=== PATIENT | male | born 1935 | race Caucasian/White ===

== ENCOUNTER 2022-09-22 19:18 | Inpatient (IN) ==
[2022-09-22] MEDS ORDERED: 0.9 % SODIUM CHLORIDE 1,000 ML IV ONE ×3 (19:24→22:12)
[2022-09-22] MEDS ORDERED: ONDANSETRON 4 MG/2 ML VIAL IV ONE (19:24)
[2022-09-22 19:34] LABS: POC Calcium, Ionized 1.11 (1.16-1.32); POC Creatinine 2.2 (0.6-1.2); POC Potassium 4.1 (3.3-5.1)
--- NOTE | 2022-09-22 19:52 | Emergency Department Note ---
Nausea/Vomiting/Diarrhea HPI General Chief complaint: Nausea/Vomiting/Diarrhea Stated complaint: nausea vomiting Time Seen by Provider: 09/22/22 19:24 Source: family Mode of arrival: wheelchair Limitations: no limitations and altered mental status History of Present Illness HPI Narrative: Narrative: Patient presents to the ED escorted by his and daughter with complaints of confusion. They state that last night when he went to bed patient was completely normal. Throughout the day today patient has been confused and stumbling over his words. They state that he has been very weak. They state he then started vomiting. He said he started having blood in his suprapubic cath. He is followed by Dr. Obregon from urology with his last visit being about 3 weeks ago. At that visit he did not have any blood coming out of his catheter. Patient does not know why he is here. Family denies fever, chills, abdominal pain, diarrhea, constipation, difficulty breathing, cardiac chest pain, heart palpitations, hematemesis, melena, hematochezia. They deny any other alleviating or aggravating factors. Related Data Home Medications Medication Instructions Recorded Confirmed aspirin 81 mg tablet,delayed 81 mg PO QDAY 01/26/15 09/14/22 release calcium carbonate-vitamin D3 600 1 tab PO BID 03/27/16 09/14/22 mg-125 unit tablet bicalutamide 50 mg tablet (Casodex) 50 mg PO QDAY 10/06/16 09/14/22 diphenhydramine HCl 25 mg capsule 25 mg PO BID PRN 08/05/18 09/14/22 polyethylene glycol 3350 17 17 g PO QDAY 10/09/19 09/14/22 gram/dose oral powder (Miralax) ibuprofen 200 mg tablet 200 mg PO QDAY 11/11/19 09/14/22 acetaminophen 500 mg tablet 1,000 mg PO QDAY PRN Pain 02/02/20 09/14/22 omega-3 fatty acids 1,000 mg 1,000 mg PO BID 02/02/20 09/14/22 capsule Previous Rx's Medication Instructions Recorded Handicap Placard #1 ea 12/09/20 omeprazole 20 mg capsule,delayed 20 mg PO QDAY #90 caps 02/15/22 release simvastatin 10 mg tablet 10 mg PO QPM #90 tabs 02/27/22 tiotropium bromide 2.5 2 puff inhalation QAM #4 grams 05/24/22 mcg/actuation mist for inhalation (Spiriva Respimat) silver sulfadiazine 1 % topical 1 applic topical BID #50 grams 07/31/22 cream albuterol sulfate 90 mcg/actuation 2 puff inhalation Q6H PRN 09/21/22 aerosol inhaler shortness of breath or wheezing #18 grams Allergies Allergy/AdvReac Type Severity Reaction Status Date / Time No Known Drug Allergies Allergy Verified 09/14/22 10:53 Review of Systems ROS ROS Narrative: Narrative: All systems ED: reviewed and negative except as stated. 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) Dyspnea (Chronic) Gastroesophageal reflux (Chronic) Hearing loss (Chronic) Hematochezia (Chronic) Hyperlipidemia (Chronic) Low back pain (Chronic 09/06/13) Obstructive uropathy (Chronic) Onychomycosis (Chronic) Peripheral vascular disease (Chronic) History of prostate cancer (Chronic) Chronic rhinitis (Chronic) Spinal stenosis of lumbar region (Chronic) Trochanteric bursitis (Chronic) Hyperglycemia (Chronic) Herpes zoster (Chronic) Rib pain on right side (Chronic) Elevated PSA (Chronic) Asbestos exposure (Chronic) Tremor (Chronic) Constipation (Chronic) Prostatic adenocarcinoma (Chronic ~08/19/19) Urinary retention (Chronic) Vasomotor rhinitis (Chronic) Dysuria (Chronic) Allergic rhinitis (Chronic) Lower urinary tract symptoms (Chronic) Encounter for care or replacement of suprapubic tube (Acute) Pleural plaque (Acute) COPD (chronic obstructive pulmonary disease) (Chronic) Hypersomnia (Acute) Snoring (Acute) Obstructive sleep apnea (Chronic) Dermatitis (Acute) Initial Medicare annual wellness visit (Acute) Chronic suprapubic catheter (Chronic) Androgen deprivation therapy (Chronic) Medicare annual wellness visit, subsequent (Acute) 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 Continue daily. Also start Flonase use daily. Anal fissure Chest pressure (09/06/13) Cholelithiasis (10/21/13) Chronic rhinitis Colitis On Cipro and Flagyl. Contusion COPD (chronic obstructive pulmonary disease) Cough Dark urine Degenerative arthritis Dermatochalasis (03/02/14) Dr. Lindsay Dyspnea unchanged Dysuria Elevated PSA Environmental allergies stable Gastroesophageal reflux Hearing loss Hearing aids Hematochezia Herpes zoster H/O History of prostate cancer 2004 History of radiation therapy External beam radiation for adenocarcinoma of the prostate Hyperglycemia mild Hyperlipidemia Hypersomnia Infected cyst of skin (12/30/13) Initial Medicare annual wellness visit Low back pain (09/06/13) Lower urinary tract symptoms Mass of right axilla Medicare annual wellness visit, initial Medicare annual wellness visit, subsequent Nausea Obstructive sleep apnea Does not tolerate CPAP. Obstructive uropathy Onychomycosis Peripheral vascular disease No claudication. Palpable peripheral pulses. Pleural plaque Pneumonia Prostatic adenocarcinoma (~08/19/19) Co-managed by oncology and urology. Taking Casodex, responding well. Suprapubic catheter now in place for obstructive uropathy. Rib pain on right side Snoring Spinal stenosis of lumbar region Trochanteric bursitis Urinary retention Urinary tract infection Vasomotor rhinitis Vertigo Vomiting Surgical History Abscess of right axilla Chronic suprapubic catheter H/O esophagogastroduodenoscopy (05/19/04) Fundic gland polyps x2 History of axillary surgery 03/29/2016- mass removed from right axillary History of cataract surgery Bilateral History of colonoscopy (10/29/12) 10/29/12 Hyperplastic polyps; Polypoid mucosa with benign intramucosal lymphoid aggregate. 08/02/16-HP and diverticuli-Dr Rock History of prostate biopsy (~08/19/19) Dr. Prashanth Mcleod History of suprapubic catheter 2019 History of vasectomy Hx of LASIK Family History mother , age 70 Malignant neoplasm of brain Father , age 65 Acute myocardial infarction at 62 Heart disease Sister , age 5 Lung cancer Diabetes Flu Heart disease Son Hypertension Brother , age 23 from work injury fall. History of fall Social History Smoking Status: Former smoker Alcohol Intake Frequency: 0-2 drinks per day Substance Use: does not use Exam Narrative Narrative: Narrative: General Limitations: no limitations and altered mental status General appearance: Absent in distress Head Head: Present atraumatic and normocephalic Eye Eye: Present PERRL and EOMI ENT ENT: Present mucous membranes dry; Absent nasal congestion Neck Neck: Present full ROM; Absent meningismus Chest Chest: Present normal inspection; Absent tenderness Respiratory Respiratory: Present normal lung sounds bilaterally and other (Tachypnea); Absent respiratory distress Cardiovascular Cardiovascular: Present normal rhythm and tachycardia Adbominal Abdominal: Present soft; Absent tenderness : Present other (Suprapubic catheter in place) Extremities Extremities: Present normal inspection and normal capillary refill Back Back: Absent CVA tenderness (R) or CVA tenderness (L) Neurological Neurological: Present alert and oriented X3 (But slow responses) Psychiatric Psychiatric: Present flat affect and polite Skin Skin: Present warm (WNL) and intact Course Course Course Narrative: Patient was evaluated for altered mental status. Clinically patient appeared dehydrated. CT of the head was obtained with injury from myself was negative for any acute intracranial findings to include stroke which was considered but ruled out. CT of the abdomen was obtained due to patient having hematuria in his suprapubic catheter with image reviewed myself which revealed some bladder calculi but no other acute intra-abdominal findings. Labs were obtained and show that patient's lactic acid was greater than 4. His white cell count shows severe leukocytosis greater than 20. Patient is tachycardic. EKG obtained and interpreted by myself which showed sinus tachycardia. UA revealed UTI. Patient does meet severe sepsis criteria. Labs also show that patient acute kidney injury with elevated BUN and creatinine above his normal baseline creatinine of 1. Procalcitonin was also elevated indicating infection. Chest x-ray was obtained with image reviewed myself which is concerning for pneumonia. Blood cultures were obtained. Patient was given IV Rocephin and vancomycin. Patient's was desatting to about 87% on room air so he was placed on 2 L of oxygen via nasal cannula and the maintain adequate oxygen saturation. Due to patient's severe sepsis condition believe admitted to the hospital would be prudent. Plan of care was discussed with patient and his family expressed a desire to be admitted. Should be noted that after IV fluids patient mentation greatly improved and he was more awake and alert and oriented x3 and answering all questions appropriately. Patient's and daughter also expressed that patient looks much better after receiving IV fluids. Case discussed with hospitalist who has agreed to admit the patient Reevaluation(s) Reevaluation #1: Patient remains hemodynamically stable. No new complaints at this time. Time: 20:35 Consultations Consultation #1: Case discussed with hospitalist, Dr. David, who has agreed to admit the pat ient. Time: 22:20 Vital Signs Vital signs: Vital Signs Temperature 97.7 F 09/22/22 19:22 Pulse Rate 117 H 09/22/22 19:22 Respiratory Rate 17 09/22/22 19:22 Blood Pressure 106/55 09/22/22 19:22 Pulse Oximetry (%) 92 09/22/22 19:22 Oxygen Delivery Method Room Air 09/22/22 19:22 Temperature 97.7 F 09/22/22 19:22 Pulse Rate 103 H 09/22/22 21:33 Respiratory Rate 26 H 09/22/22 21:33 Blood Pressure 102/58 09/22/22 21:33 Pulse Oximetry (%) 93 09/22/22 21:33 Oxygen Delivery Method Nasal Cannula 09/22/22 21:33 Oxygen Flow Rate (L/min) 2 09/22/22 21:33 [facility] MDM Narrative Medical decision making narrative: Narrative: Sepsis Sepsis Identified: Yes Date Sepsis Identified: 09/22/22 Time Sepsis Identified: 21:20 Comments: Severe sepsis identified secondary to UTI pneumonia Differential Diagnosis Differential Diagnosis: Viral illness, dehydration, UTI, sepsis Medical Records Medical records reviewed: Yes I reviewed the patient's medical records. Lab Data Lab results reviewed: Yes I reviewed the patient's lab results. 09/22/22 19:25 Labs: Lab Results 09/22/22 09/22/22 09/22/22 Range/Units 19:25 19:25 19:31 WBC 27.8 H (4.5-11.0) K/mcL RBC 4.40 L (4.63-6.08) M/mcL Hgb 13.4 L (13.7-17.5) g/dL Hct 40.9 (40.1-51.0) % POC Hct 42.0 (41-55) MCV 93.0 (80.0-100.0) fL MCH 30.5 (26.0-34.0) pg MCHC 32.8 (31.0-36.0) g/dL RDW 12.9 (11.5-14.5) % Plt Count 212 (140-440) K/mcL MPV 11.4 (8.8-12.5) fL Immature Gran % (Auto) 1.7 H (0.0-0.5) % Neut % (Auto) 89.7 H (38.0-78.0) % Lymph % (Auto) 2.9 L (15.5-49.0) % [place] % (Auto) 4.6 (1.0-12.0) % Eos % (Auto) 0.9 (0.0-7.0) % Baso % (Auto) 0.2 (0.0-2.0) % Lymph # (Auto) 0.81 L (1.50-4.80) K/mcL [place] # (Auto) 1.29 H (0.10-0.90) K/mcL Eos # (Auto) 0.24 (0.00-0.70) K/mcL Baso # (Auto) 0.06 (0.00-0.30) K/mcL Immature Gran # 0.48 H (0.00-0.05) K/mcl Absolute Neutrophils 24.94 H (1.80-8.00) K/mcL POC VBG pH (7.32-7.42) POC VBG pCO2 at Temp (41-51) POC VBG pO2 (25-40) POC VBG HCO3 (24-28) POC VBG Total CO2 (25-29) POC Venous O2 Sat (40-70) POC VBG Base Excess (-2-2) VBG Lactic Acid (0.5-2) POC Sodium 137 (133-145) POC Potassium 4.1 (3.3-5.1) POC Chloride 105 (96-108) POC Total CO2 19.0 L (22-30) POC Anion Gap 18.0 H (8.0-16.0) POC BUN 30 H (6-20) POC Creatinine 2.2 H (0.6-1.2) POC Glucose 150 H (70-105) POC WB Ioniz Calcium 1.11 L (1.16-1.32) Total Bilirubin (0.1-1.0) mg/dL Direct Bilirubin (<0.3) mg/dL AST (<40) U/L ALT (<40) U/L Alkaline Phosphatase (39-117) U/L Ammonia (16-60) umol/L Total Protein (5.9-8.4) gm/dL Albumin (3.2-5.2) gm/dL Globulin (2.2-3.7) gm/dL Procalcitonin 14.54 H (<0.10) ng/mL 09/22/22 09/22/22 09/22/22 Range/Units 19:38 19:38 19:43 WBC (4.5-11.0) K/mcL RBC (4.63-6.08) M/mcL Hgb (13.7-17.5) g/dL Hct (40.1-51.0) % POC Hct (41-55) MCV (80.0-100.0) fL MCH (26.0-34.0) pg MCHC (31.0-36.0) g/dL RDW (11.5-14.5) % Plt Count (140-440) K/mcL MPV (8.8-12.5) fL Immature Gran % (Auto) (0.0-0.5) % Neut % (Auto) (38.0-78.0) % Lymph % (Auto) (15.5-49.0) % [place] % (Auto) (1.0-12.0) % Eos % (Auto) (0.0-7.0) % Baso % (Auto) (0.0-2.0) % Lymph # (Auto) (1.50-4.80) K/mcL [place] # (Auto) (0.10-0.90) K/mcL Eos # (Auto) (0.00-0.70) K/mcL Baso # (Auto) (0.00-0.30) K/mcL Immature Gran # (0.00-0.05) K/mcl Absolute Neutrophils (1.80-8.00) K/mcL POC VBG pH 7.44 H (7.32-7.42) POC VBG pCO2 at Temp 23.6 L (41-51) POC VBG pO2 41 H (25-40) POC VBG HCO3 16.2 L (24-28) POC VBG Total CO2 17.0 L (25-29) POC Venous O2 Sat 80.0 H (40-70) POC VBG Base Excess -8.0 L (-2-2) VBG Lactic Acid 4.1 H* (0.5-2) POC Sodium (133-145) POC Potassium (3.3-5.1) POC Chloride (96-108) POC Total CO2 (22-30) POC Anion Gap (8.0-16.0) POC BUN (6-20) POC Creatinine (0.6-1.2) POC Glucose (70-105) POC WB Ioniz Calcium (1.16-1.32) Total Bilirubin 0.8 (0.1-1.0) mg/dL Direct Bilirubin 0.3 H (<0.3) mg/dL AST 23 (<40) U/L ALT 16 (<40) U/L Alkaline Phosphatase 61 (39-117) U/L Ammonia 38 (16-60) umol/L Total Protein 6.4 (5.9-8.4) gm/dL Albumin 3.4 (3.2-5.2) gm/dL Globulin 3.0 (2.2-3.7) gm/dL Procalcitonin (<0.10) ng/mL 09/22/22 Range/Units 22:05 WBC (4.5-11.0) K/mcL RBC (4.63-6.08) M/mcL Hgb (13.7-17.5) g/dL Hct (40.1-51.0) % POC Hct (41-55) MCV (80.0-100.0) fL MCH (26.0-34.0) pg MCHC (31.0-36.0) g/dL RDW (11.5-14.5) % Plt Count (140-440) K/mcL MPV (8.8-12.5) fL Immature Gran % (Auto) (0.0-0.5) % Neut % (Auto) (38.0-78.0) % Lymph % (Auto) (15.5-49.0) % [place] % (Auto) (1.0-12.0) % Eos % (Auto) (0.0-7.0) % Baso % (Auto) (0.0-2.0) % Lymph # (Auto) (1.50-4.80) K/mcL [place] # (Auto) (0.10-0.90) K/mcL Eos # (Auto) (0.00-0.70) K/mcL Baso # (Auto) (0.00-0.30) K/mcL Immature Gran # (0.00-0.05) K/mcl Absolute Neutrophils (1.80-8.00) K/mcL POC VBG pH 7.33 (7.32-7.42) POC VBG pCO2 at Temp 37.1 L (41-51) POC VBG pO2 30 (25-40) POC VBG HCO3 19.4 L (24-28) POC VBG Total CO2 21.0 L (25-29) POC Venous O2 Sat 53.0 (40-70) POC VBG Base Excess -7.0 L (-2-2) VBG Lactic Acid 3.3 H (0.5-2) POC Sodium (133-145) POC Potassium (3.3-5.1) POC Chloride (96-108) POC Total CO2 (22-30) POC Anion Gap (8.0-16.0) POC BUN (6-20) POC Creatinine (0.6-1.2) POC Glucose (70-105) POC WB Ioniz Calcium (1.16-1.32) Total Bilirubin (0.1-1.0) mg/dL Direct Bilirubin (<0.3) mg/dL AST (<40) U/L ALT (<40) U/L Alkaline Phosphatase (39-117) U/L Ammonia (16-60) umol/L Total Protein (5.9-8.4) gm/dL Albumin (3.2-5.2) gm/dL Globulin (2.2-3.7) gm/dL Procalcitonin (<0.10) ng/mL Radiology Data Radiology results reviewed: Yes I reviewed the patient's radiology results. Radiology results narrative: Chest x-ray obtained with image reviewed myself concerning for pneumonia CT abdomen and pelvis obtained with image reviewed myself with no acute intra- abdominal finding but did reveal some calculi within the bladder CT of the head obtained with image reviewed myself, no acute intracranial fi ndings. EKG Data EKG #1: EKG attestation: Yes I reviewed and interpreted this EKG. EKG shows normal: sinus rhythm Rate: tachycardia (112) Rhythm: PVC's [place]/QRS: normal Heart block present: None ST segment elevation in: None ST segment depression in: None QTc: normal QRS morphology: Present normal Interpretation: no acute changes Core Measures AMI Core Measures Followed: Yes Discharge Plan Patient/Caregiver Discharge Instructions Pt seen by BIT GATHERER/PA only: No Clinical Impression: Severe sepsis, Acute kidney injury, Acute respiratory failure with hypoxia, Bladder calculi Sepsis Qualifiers: Sepsis type: sepsis due to unspecified organism Sepsis acute organ dysfunction status: with acute organ dysfunction Severe sepsis acute organ dysfunction type: encephalopathy Severe sepsis shock status: without septic shock Qualified Code(s): A41.9 - Sepsis, unspecified organism UTI (urinary tract infection) Qualifiers: Urinary tract infection type: site unspecified Hematuria presence: with hematuria Qualified Code(s): N39.0 - Urinary tract infection, site not specified Pneumonia Qualifiers: Pneumonia type: due to unspecified organism Laterality: unspecified laterality Lung location: unspecified part of lung Qualified Code(s): J18.9 - Pneumonia, unspecified organism Hematuria Qualifiers: Hematuria type: gross Qualified Code(s): R31.0 - Gross hematuria Patient Disposition: Xfer As Inpt ([facility]) Condition: Fair Follow up with: Daniel Chau DO [Primary Care Provider] - Prescriptions: No Action omeprazole 20 mg capsule,delayed release(DR/EC) 20 mg PO QDAY Qty: 90 3RF simvastatin 10 mg tablet 10 mg PO QPM Qty: 90 3RF Spiriva Respimat 2.5 mcg/actuation mist 2 puff inhalation QAM Qty: 4 12RF silver sulfadiazine 1 % cream 1 applic topical BID Qty: 50 2RF Rx Instructions: apply to painful burning area as needed (penis, anal fissure, catheter stoma) albuterol sulfate 90 mcg/actuation HFA aerosol inhaler 2 puff INHALATION Q6H PRN (Reason: shortness of breath or wheezing) Qty: 18 6RF omega-3 fatty acids 1,000 mg capsule 1,000 mg PO BID polyethylene glycol 3350 [Miralax] 17 gram/dose powder 17 g PO QDAY ibuprofen 200 mg tablet 200 mg PO QDAY aspirin 81 mg tablet,delayed release (DR/EC) 81 mg PO QDAY acetaminophen 500 mg tablet 1,000 mg PO QDAY PRN (Reason: Pain) (DME) Handicap Placard See Rx Instructions .Route .MEDSUPPLY Qty: 1 0RF Rx Instructions: Patient cannot walk 200 feet without stopping to rest or must use assistive device. calcium carbonate-vitamin D3 1 EACH tablet 1 tab PO BID diphenhydramine HCl 25 mg capsule 25 mg PO BID PRN bicalutamide [Casodex] 50 mg tablet 50 mg PO QDAY
--- NOTE | 2022-09-22 20:44 | Cat Scan Report ---
History: Altered mental status TECHNIQUE: The brain was imaged without contrast in axial plane at 2.5 mm intervals. Sagittal and coronal reformats were created. The radiation exposure was limited using dose reduction technology. FINDINGS: There is mild generalized atrophy above and below the tentorium. The greatest atrophy is around the sylvian fissures. Moderate diffuse white matter disease is present with confluent areas of decreased attenuation in the centrum semiovale, predominantly involving the frontal and parietal lobes. There is no evidence of an infarct. No hemorrhage or mass effect are present. The ventricles are normal in size allowing for atrophy. No abnormal extra-axial fluid collection is present. Bone windows show no skull lesion. The visualized sinuses are clear. IMPRESSION: Moderate age-related degenerative changes and no acute abnormality. Dr. Orosco was called with the report Interpreted and Authenticated by: Moo James 09/22/22
--- NOTE | 2022-09-22 20:44 | Cat Scan Report ---
History: Abdominal pain nausea, vomiting and hematuria, prior history of colitis and prostate cancer TECHNIQUE: The abdomen was imaged without contrast in axial plane at 2.5 mm intervals. Sagittal and coronal reformats were created. The radiation exposure was limited using dose reduction technology. FINDINGS: There are multiple calcified pleural plaques in both left and right thorax. There is fibrosis and low level inflammation in the posterior basal segments of both lower lobes. There is significant bilateral gynecomastia. Evaluation the abdominal organs without contrast is somewhat limited. The liver and spleen are normal in size and homogeneous. There are couple gallstones layering posteriorly within the gallbladder. The hogan not thickened or inflamed and the stones are chronic finding. The bile ducts are nondilated. There is a small duodenal diverticulum along the medial side of the duodenum near the common bile duct. There is no associated inflammation. No abnormality is detected in the pancreas. Aorta is normal in caliber and there are scattered plaques. The right kidney is normal. The left kidney is slightly edematous compared to the right and there is moderate perinephric stranding. No kidney stone or hydronephrosis are present. There is no perinephric abscess or urinoma. No mass is detected. The ureters decompressed. The urinary bladder is decompressed by suprapubic catheter. There are multiple small stones in the lumen of the bladder. Small hiatus hernia is present. The stomach is otherwise normal. Small intestine is normal in caliber nondilated. The severe colitis seen in the transverse and ascending colon on the prior CT done on 03/31/16 has resolved and there is no recurrent inflammation at this level. However, patient has a long segment stricture in the sigmoid colon measuring roughly 11 cm in length. This segment is less than 1 cm in diameter. This segment of bowel was narrowed but not pathologically narrowed on the prior exam. There is no abnormal dilatation of the sigmoid proximal to the strictured segment. There are noninflamed diverticula in the proximal and mid sigmoid colon. There is moderate stranding of the fat in the left side of the pelvis fluid tracks along the left ureter and there are some stranding of Gerota's fascia. No abscess or ascites are present. There are no abnormally enlarged lymph nodes. IMPRESSION: Nonspecific inflammatory changes around the left kidney and Gerota's fascia extending into the left side of the pelvis. This may be due to recent passage of a stone are nonspecific inflammatory process. Multiple bladder calculi Long segment stricture of the sigmoid colon which is not causing bowel obstruction. Cholelithiasis, without cholecystitis Dr. Orosco was called with the report Interpreted and Authenticated by: Moo James 09/22/22
[2022-09-22 20:45] LABS: ALT/SGPT 16 U/L (<40); AST/SGOT 23 U/L (<40); Albumin 3.4 gm/dL (3.2-5.2); Alkaline Phosphatase 61 U/L (39-117); Bilirubin,Direct 0.3 mg/dL (<0.3); Bilirubin,Total 0.8 mg/dL (0.1-1.0)
[2022-09-22 20:57] LABS: Basophils # (Auto) 0.06 K/mcL (0.00-0.30); Basophils % (Auto) 0.2 % (0.0-2.0); Eosinophils # (Auto) 0.24 K/mcL (0.00-0.70); Eosinophils % (Auto) 0.9 % (0.0-7.0); Hematocrit 40.9 % (40.1-51.0); Hemoglobin 13.4 g/dL (13.7-17.5); Lymphocytes # (Auto) 0.81 K/mcL (1.50-4.80); Lymphocytes % (Auto) 2.9 % (15.5-49.0); Mean Corpuscular HGB Conc 32.8 g/dL (31.0-36.0); Mean Platelet Volume 11.4 fL (8.8-12.5); Monocytes # (Auto) 1.29 K/mcL (0.10-0.90); Monocytes % (Auto) 4.6 % (1.0-12.0); Neutrophils % (Auto) 89.7 % (38.0-78.0); Platelet Count 212 K/mcL (140-440); Red Cell Distribution Width 12.9 % (11.5-14.5); WBC 27.8 K/mcL (4.5-11.0)
[2022-09-22] MEDS ORDERED: VANCOMYCIN 1,000 MG in 0.9 % SODIUM CHLORIDE 250 ML IV ONE (21:20)
[2022-09-22] MEDS ORDERED: cefTRIAXone 1 GM VIAL IV ONE ×2 (21:20→23:41)
[2022-09-22] MEDS ORDERED: SODIUM CHLORIDE IV ONE (22:12)
[2022-09-22 22:15] LABS: POC Calcium, Ionized 1.03 (1.16-1.32); POC Creatinine 2.3 (0.6-1.2); POC Potassium 4.2 (3.3-5.1)
--- NOTE | 2022-09-22 22:38 | Internal Med History&Physical ---
HPI History of Present Illness Patient information: Note initiated : 09/22/22 at 10:30 pm Service Date, if different from initiated Date: [] Patient: Lalit Moyer a 87 y/o M admitted on . Chief Complaint: [] History of present illness: Mr. 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 He went to his bed in normal state of health but woke up around 1 AM with an episode of vomiting. He had another couple of episodes of vomiting through the day and was feeling very weak and tired. Throughout the day family noted that patient was somewhat lethargic, confused and stumbling over words. Patient felt some pressure and thought his suprapubic catheter was not draining however noted blood in the catheter. His p.o. intake was low he was not eating and was nauseous. Patient follows up with Dr. Obregon and his last visit was about a week ago when he had his suprapubic catheter changed. Patient denies fever, chills, abdominal pain, diarrhea, constipation, difficulty breathing, cardiac chest pain, heart palpitations, hematemesis, melena, hematochezia. On presentation patient was tachypneic with respiratory rate 31, tachycardia heart rate 113, he was hypoxic of 84% and required 2 L nasal cannula oxygen. Labs were remarkable for WBCs 27,000, hemoglobin 13.4. Lactic acid 4.1. Procalcitonin elevated at 14. Normal electrolytes. Creatinine 2.3 consistent with YEIMY. UA positive for leukocyte Estrace, RBC, WBC, bacteria. CT abdomen and pelvis showed some nonspecific inflammatory changes around left kidney and Gerota fascia extending into the left side of the pelvis. This may be secondary to passage of stone or known inflammatory process. Multiple bladder calculi were noted. Chest x-ray concerning for pneumonia formal read is pending. EKG showed sinus tachycardia ventricular rate 1122 bpm, some PVCs, no acute ST-T wave changes. Review of system 14 point review of system completed pertinent positive and negative mentioned above. Physical examination General appearance: Absent in distress Head Head: Present atraumatic and normocephalic Eye Eye: Present PERRL and EOMI ENT ENT: Present mucous membranes dry; Absent nasal congestion. Hearing aids in place, Neck Neck: Present full ROM; Absent meningismus Chest Chest: Present normal inspection; Absent tenderness Respiratory Respiratory: Patient tachypneic, chest is clear mainly, on supplemental oxygen 2 L nasal cannula oxygen Cardiovascular Cardiovascular: Present normal rhythm and tachycardia, no murmurs heard Adbominal Abdominal: Present soft; Absent tenderness : Present other (Suprapubic catheter in place), no hematuria, draining dark- colored urine Extremities Extremities: Present normal inspection and normal capillary refill Back Back: Absent CVA tenderness (R) or CVA tenderness (L) Neurological Neurological: Present alert and oriented X3, slow responses. Mildly confused no focal deficits Psychiatric Psychiatric: Present flat affect and polite Skin Skin: Present warm (WNL) and intact Assessment and plan Severe sepsis, presented with tachycardia, tachypnea, significant leukocytosis and UTI/pneumonia UTI, catheter associated. Patient has suprapubic catheter which was changed recently by his urologist. UA is positive. CT abdomen and pelvis showed some nonspecific inflammatory changes around left kidney and Gerota fascia extending into the left side of the pelvis. This may be secondary to passage of stone or known inflammatory process. Multiple bladder calculi were noted. Patient with history of recurrent UTIs when he had Larsen catheter and this was changed to suprapubic catheter. Previous cultures reviewed, multiorganism including Pse udomonas. Patient received ceftriaxone. Will change to Zosyn 4.5 g IV every 6 hours to cover for Pseudomonas. Vancomycin per pharmacy. Pneumonia. Patient vomited few times. Possible aspiration. Chest x-ray concerning for pneumonia. Zosyn and vancomycin will cover Acute kidney injury. Likely secondary to dehydration. Will hydrate and recheck Hematuria, likely in the setting of bladder and ureter stone. Currently no hematuria. Altered mental status. Acute encephalopathy. CT head negative for acute finding. Likely secondary to above Prostate cancer on Casodex and responding well but declining PSA COPD/emphysema, DuoNebs, budesonide Obstructive sleep apnea does not tolerate CPAP Hypertension, currently hypotensive, will hold off on all BP meds Hyperlipidemia, continue simvastatin GERD, continue PPI Severe deconditioning/generalized weakness. PT eval DVT prophylaxis in place CODE STATUS full code. [facility] Active Problems (Updated 09/22/22 @ 21:34 by Christian Orosco DO) Sepsis (Acute) UTI (urinary tract infection) (Acute) Pneumonia (Acute) Severe sepsis (Acute) Hematuria (Acute) Acute kidney injury (Acute) Acute respiratory failure with hypoxia (Acute) Bladder calculi (Acute) Environmental allergies (Chronic) Cholelithiasis (Chronic 10/21/13) Cough (Chronic) Degenerative arthritis (Chronic) Dermatochalasis (Chronic 03/02/14) Dyspnea (Chronic) Gastroesophageal reflux (Chronic) Hearing loss (Chronic) Hematochezia (Chronic) Hyperlipidemia (Chronic) Low back pain (Chronic 09/06/13) Obstructive uropathy (Chronic) Onychomycosis (Chronic) Peripheral vascular disease (Chronic) History of prostate cancer (Chronic) Chronic rhinitis (Chronic) Spinal stenosis of lumbar region (Chronic) Trochanteric bursitis (Chronic) Hyperglycemia (Chronic) Herpes zoster (Chronic) Rib pain on right side (Chronic) Elevated PSA (Chronic) Asbestos exposure (Chronic) Tremor (Chronic) Constipation (Chronic) Prostatic adenocarcinoma (Chronic ~08/19/19) Urinary retention (Chronic) Vasomotor rhinitis (Chronic) Dysuria (Chronic) Allergic rhinitis (Chronic) Lower urinary tract symptoms (Chronic) Encounter for care or replacement of suprapubic tube (Acute) Pleural plaque (Acute) COPD (chronic obstructive pulmonary disease) (Chronic) Hypersomnia (Acute) Snoring (Acute) Obstructive sleep apnea (Chronic) Dermatitis (Acute) Initial Medicare annual wellness visit (Acute) Chronic suprapubic catheter (Chronic) Androgen deprivation therapy (Chronic) Medicare annual wellness visit, subsequent (Acute) 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 Continue daily. Also start Flonase use daily. Anal fissure Chest pressure (09/06/13) Cholelithiasis (10/21/13) Chronic rhinitis Colitis On Cipro and Flagyl. Contusion COPD (chronic obstructive pulmonary disease) Cough Dark urine Degenerative arthritis Dermatochalasis (03/02/14) Dr. Lindsay Dyspnea unchanged Dysuria Elevated PSA Environmental allergies stable Gastroesophageal reflux Hearing loss Hearing aids Hematochezia Herpes zoster H/O History of prostate cancer 2004 History of radiation therapy External beam radiation for adenocarcinoma of the prostate Hyperglycemia mild Hyperlipidemia Hypersomnia Infected cyst of skin (12/30/13) Initial Medicare annual wellness visit Low back pain (09/06/13) Lower urinary tract symptoms Mass of right axilla Medicare annual wellness visit, initial Medicare annual wellness visit, subsequent Nausea Obstructive sleep apnea Does not tolerate CPAP. Obstructive uropathy Onychomycosis Peripheral vascular disease No claudication. Palpable peripheral pulses. Pleural plaque Pneumonia Prostatic adenocarcinoma (~08/19/19) Co-managed by oncology and urology. Taking Casodex, responding well. Suprapubic catheter now in place for obstructive uropathy. Rib pain on right side Snoring Spinal stenosis of lumbar region Trochanteric bursitis Urinary retention Urinary tract infection Vasomotor rhinitis Vertigo Vomiting Surgical History Abscess of right axilla Chronic suprapubic catheter H/O esophagogastroduodenoscopy (05/19/04) Fundic gland polyps x2 History of axillary surgery 03/29/2016- mass removed from right axillary History of cataract surgery Bilateral History of colonoscopy (10/29/12) 10/29/12 Hyperplastic polyps; Polypoid mucosa with benign intramucosal lymphoid aggregate. 08/02/16-HP and diverticuli-Dr Rock History of prostate biopsy (~08/19/19) Dr. Prashanth Mcleod History of suprapubic catheter 2019 History of vasectomy Hx of JUANIK Family History mother , age 70 Malignant neoplasm of brain Father , age 65 Acute myocardial infarction at 62 Heart disease Sister , age 5 Lung cancer Diabetes Flu Heart disease Son Hypertension Brother , age 23 from work injury fall. History of fall Social History household members: spouse housing: house lives independently: Yes marital status: education level: high school occupational status: retired other: 3 adult children smoking status: Former smoker smoking status start date: 03/19/1956 smoking status stop date: 03/19/92 alcohol intake frequency: 0-2 drinks per day substance use type: does not use MEDS/ALLERGIES Home Medications and Allergies Home Medications Medication Instructions Recorded Confirmed Type aspirin 81 mg tablet,delayed 81 mg PO QDAY 01/26/15 09/14/22 History release calcium carbonate-vitamin D3 600 1 tab PO BID 03/27/16 09/14/22 History mg-125 unit tablet bicalutamide 50 mg tablet (Casodex) 50 mg PO QDAY 10/06/16 09/14/22 History diphenhydramine HCl 25 mg capsule 25 mg PO BID PRN 08/05/18 09/14/22 History polyethylene glycol 3350 17 17 g PO QDAY 10/09/19 09/14/22 History gram/dose oral powder (Miralax) ibuprofen 200 mg tablet 200 mg PO QDAY 11/11/19 09/14/22 History acetaminophen 500 mg tablet 1,000 mg PO QDAY PRN Pain 02/02/20 09/14/22 History omega-3 fatty acids 1,000 mg 1,000 mg PO BID 02/02/20 09/14/22 History capsule Handicap Placard #1 ea 12/09/20 09/14/22 Rx omeprazole 20 mg capsule,delayed 20 mg PO QDAY #90 caps 02/15/22 09/14/22 Rx release simvastatin 10 mg tablet 10 mg PO QPM #90 tabs 02/27/22 09/14/22 Rx tiotropium bromide 2.5 2 puff inhalation QAM #4 grams 05/24/22 09/14/22 Rx mcg/actuation mist for inhalation (Spiriva Respimat) silver sulfadiazine 1 % topical 1 applic topical BID #50 grams 07/31/22 09/14/22 Rx cream albuterol sulfate 90 mcg/actuation 2 puff inhalation Q6H PRN 09/21/22 Rx aerosol inhaler shortness of breath or wheezing #18 grams Allergies Allergy/AdvReac Type Severity Reaction Status Date / Time No Known Drug Allergies Allergy Verified 09/14/22 10:53 EXAM Constitutional Vitals: Temp Pulse Resp BP Pulse Ox O2 Del Method O2 Flow Rate 97.7 F 104 H 27 H 102/58 93 Nasal Cannula 2 09/22/22 19:22 09/22/22 22:16 09/22/22 22:16 09/22/22 22:16 09/22/22 22:16 09/22/22 22:16 09/22/22 22:16 DATA Data Completed and Pending Labs: Labs from last 24 hours 09/22/22 09/22/22 09/22/22 22:13 22:12 22:05 WBC RBC Hgb Hct POC Hct 39.0 L MCV MCH MCHC RDW Plt Count MPV Immature Gran % (Auto) Neut % (Auto) Lymph % (Auto) Ogle % (Auto) Eos % (Auto) Baso % (Auto) Lymph # (Auto) Ogle # (Auto) Eos # (Auto) Baso # (Auto) Immature Gran # Absolute Neutrophils POC VBG pH 7.33 POC VBG pCO2 at Temp 37.1 L POC VBG pO2 30 POC VBG HCO3 19.4 L POC VBG Total CO2 21.0 L POC Venous O2 Sat 53.0 POC VBG Base Excess -7.0 L VBG Lactic Acid 3.3 H POC Sodium 138 POC Potassium 4.2 POC Chloride 107 POC Total CO2 21.0 L POC Anion Gap 16.0 POC BUN 30 H POC Creatinine 2.3 H POC Glucose 125 H POC WB Ioniz Calcium 1.03 L Total Bilirubin Direct Bilirubin AST ALT Alkaline Phosphatase Ammonia Total Protein Albumin Globulin Procalcitonin Urine Color Pending Urine Appearance Pending Urine pH Pending Ur Specific [place] Pending Urine Protein Pending Urine Glucose (UA) Pending Urine Ketones Pending Urine Occult Blood Pending Urine Nitrate Pending Urine Bilirubin Pending Urine Urobilinogen Pending Ur Leukocyte Esterase Pending 09/22/22 09/22/22 09/22/22 19:43 19:38 19:38 WBC RBC Hgb Hct POC Hct MCV MCH MCHC RDW Plt Count MPV Immature Gran % (Auto) Neut % (Auto) Lymph % (Auto) Ogle % (Auto) Eos % (Auto) Baso % (Auto) Lymph # (Auto) Ogle # (Auto) Eos # (Auto) Baso # (Auto) Immature Gran # Absolute Neutrophils POC VBG pH 7.44 H POC VBG pCO2 at Temp 23.6 L POC VBG pO2 41 H POC VBG HCO3 16.2 L POC VBG Total CO2 17.0 L POC Venous O2 Sat 80.0 H POC VBG Base Excess -8.0 L VBG Lactic Acid 4.1 H* POC Sodium POC Potassium POC Chloride POC Total CO2 POC Anion Gap POC BUN POC Creatinine POC Glucose POC WB Ioniz Calcium Total Bilirubin 0.8 Direct Bilirubin 0.3 H AST 23 ALT 16 Alkaline Phosphatase 61 Ammonia 38 Total Protein 6.4 Albumin 3.4 Globulin 3.0 Procalcitonin Urine Color Urine Appearance Urine pH Ur Specific [place] Urine Protein Urine Glucose (UA) Urine Ketones Urine Occult Blood Urine Nitrate Urine Bilirubin Urine Urobilinogen Ur Leukocyte Esterase 09/22/22 09/22/22 09/22/22 19:31 19:25 19:25 WBC 27.8 H RBC 4.40 L Hgb 13.4 L Hct 40.9 POC Hct 42.0 MCV 93.0 MCH 30.5 MCHC 32.8 RDW 12.9 Plt Count 212 MPV 11.4 Immature Gran % (Auto) 1.7 H Neut % (Auto) 89.7 H Lymph % (Auto) 2.9 L Ogle % (Auto) 4.6 Eos % (Auto) 0.9 Baso % (Auto) 0.2 Lymph # (Auto) 0.81 L Ogle # (Auto) 1.29 H Eos # (Auto) 0.24 Baso # (Auto) 0.06 Immature Gran # 0.48 H Absolute Neutrophils 24.94 H POC VBG pH POC VBG pCO2 at Temp POC VBG pO2 POC VBG HCO3 POC VBG Total CO2 POC Venous O2 Sat POC VBG Base Excess VBG Lactic Acid POC Sodium 137 POC Potassium 4.1 POC Chloride 105 POC Total CO2 19.0 L POC Anion Gap 18.0 H POC BUN 30 H POC Creatinine 2.2 H POC Glucose 150 H POC WB Ioniz Calcium 1.11 L Total Bilirubin Direct Bilirubin AST ALT Alkaline Phosphatase Ammonia Total Protein Albumin Globulin Procalcitonin 14.54 H Urine Color Urine Appearance Urine pH Ur Specific [place] Urine Protein Urine Glucose (UA) Urine Ketones Urine Occult Blood Urine Nitrate Urine Bilirubin Urine Urobilinogen Ur Leukocyte Esterase A/P Time Spent With Patient Time: Total time spent is greater than 50% in coordination of care (as documented) at patient's floor/unit and/or counseling patient:
[2022-09-22 22:50] LABS: Appearance,Urine HAZY (Clear); Bacteria,Urine MANY /hpf (0); Bilirubin,Urine Negative (Negative); Color,Urine RED; Culture Indicated,Urine yes; Glucose,Urine (UA) Negative (Negative); Ketones,Urine Negative (Negative); Leukocyte Esterase,Urine 500 /uL (Negative); Mucus,Urine FEW /hpf; Nitrate,Urine Negative (Negative); Protein,Urine 100 mg/dL (Negative); Specific Gravity,Urine 1.003 (1.000-1.035); Urine RBC 9 /hpf (0-3); Urine Squamous Epithelial Cell 0 /hpf (0-4); Urine WBC 74 /hpf (0-4); Urobilinogen,Urine Negative
[2022-09-22] MEDS ORDERED: LACTATED RINGERS 1,000 ML IV SCH (23:45)
[2022-09-23] MEDS ORDERED: SENNOSIDES 1 TABLET PO PRN (01:10)
[2022-09-23] MEDS: IPRATROPIUM/ALBUTEROL 3 ML AMPUL.NEB NEB SCH ×4 (01:43→18:37)
[2022-09-23] MEDS: BUDESONIDE 0.5 MG/2 ML AMPUL.NEB NEB SCH ×4 (01:43→19:22)
[2022-09-23] MEDS ORDERED: IPRATROPIUM/ALBUTEROL 3 ML AMPUL.NEB NEB ONE ×2 (01:45→07:03)
[2022-09-23] MEDS ORDERED: PIPERACILLIN SODIUM/TAZOBACTAM 3.375 GM in DEXTROSE 5% IN WATER 50 ML IV ONE (02:22)
[2022-09-23] MEDS: PIPERACILLIN SODIUM/TAZOBACTAM 4.5 GM in DEXTROSE 5% IN WATER 50 ML IV SCH ×2 (02:24→08:52)
[2022-09-23] MEDS: ACETAMINOPHEN 325 MG TABLET PO PRN (04:14)
[2022-09-23] MEDS ORDERED: ACETAMINOPHEN 325 MG TABLET PO ONE (04:17)
[2022-09-23] MEDS: 0.9 % SODIUM CHLORIDE 10 ML SYRINGE IV SCH ×3 (05:08→22:00)
[2022-09-23 06:59] LABS: Basophils # (Auto) 0.03 K/mcL (0.00-0.30); Basophils % (Auto) 0.1 % (0.0-2.0); Eosinophils # (Auto) 0 K/mcL (0.00-0.70); Eosinophils % (Auto) 0 % (0.0-7.0); Hematocrit 36.2 % (40.1-51.0); Hemoglobin 11.7 g/dL (13.7-17.5); Lymphocytes # (Auto) 0.59 K/mcL (1.50-4.80); Lymphocytes % (Auto) 2.6 % (15.5-49.0); Mean Cell Volume 93.8 fL (80.0-100.0); Mean Corpuscular HGB Conc 32.3 g/dL (31.0-36.0); Mean Platelet Volume 11.4 fL (8.8-12.5); Monocytes # (Auto) 0.94 K/mcL (0.10-0.90); Monocytes % (Auto) 4.1 % (1.0-12.0); Neutrophils % (Auto) 92.1 % (38.0-78.0); Platelet Count 154 K/mcL (140-440); RBC 3.86 M/mcL (4.63-6.08); Red Cell Distribution Width 13.4 % (11.5-14.5)
[2022-09-23] MEDS ORDERED: BUDESONIDE 0.5 MG/2 ML AMPUL.NEB ONE (07:03)
[2022-09-23 07:14] LABS: ALT/SGPT 18 U/L (<40); AST/SGOT 23 U/L (<40); Albumin 2.9 gm/dL (3.2-5.2); Alkaline Phosphatase 67 U/L (39-117); Bilirubin,Total 0.5 mg/dL (0.1-1.0); Blood Urea Nitrogen 30 mg/dL (8-23); Carbon Dioxide 19 mmol/L (22-30); Chloride 106 mmol/L (96-108); Globulin 2.8 gm/dL (2.2-3.7); Glomerular Filtration Rate 27; Glucose 125 mg/dL (70-105)
[2022-09-23] MEDS: PANTOPRAZOLE 40 MG TABLET PO SCH (07:42)
[2022-09-23] MEDS: PIPERACILLIN SODIUM/TAZOBACTAM 3.375 GM in DEXTROSE 5% IN WATER 50 ML IV SCH ×4 (08:19→23:06)
--- NOTE | 2022-09-23 08:37 | XRay Report ---
HISTORY: Tachycardia, nausea, vomiting, COPD FINDINGS: There are several calcified pleural plaques in the mid lower thorax bilaterally. This is consistent with prior asbestos exposure. There are streaky infiltrates throughout both lungs which have increased since prior exam done on 08/04/21. This may be a combination of active inflammation and superimposed pulmonary fibrosis. No mass is detected. Heart size is normal. Pulmonary vessels are obscured by the infiltrates. IMPRESSION: Nonspecific inflammatory changes in both lungs superimposed upon pulmonary fibrosis and calcified pleural plaques Interpreted and Authenticated by: Moo James 09/23/22
[2022-09-23 08:38] LABS: Vancomycin,Random 10.7 ug/mL
[2022-09-23] MEDS ORDERED: ENOXAPARIN 40 MG/0.4 ML SYRINGE SQ SCH (09:00)
[2022-09-23] MEDS ORDERED: cefTRIAXone 1 GM in DEXTROSE 5% IN WATER 50 ML IV SCH (09:00)
[2022-09-23] MEDS: DOCUSATE SODIUM 100 MG CAPSULE PO SCH ×2 (10:07→23:01)
--- NOTE | 2022-09-23 10:22 | Cat Scan Report ---
History: Difficulty breathing, pulmonary infiltrates TECHNIQUE: The chest was imaged without contrast in axial plane at 2.5 mm intervals. Sagittal, coronal and axial MIPS images were created. The radiation exposure was limited using dose reduction technology. FINDINGS: There are multiple calcified pleural plaques in the mid and lower thorax bilaterally, consistent with prior asbestos exposure. These are chronic stable findings with no significant change since the prior CT done on 02/18/20. A very small layering left-sided pleural effusion is present. There is moderate consolidation in the basilar segments of the left lower lobe with several air bronchograms. A milder diffuse alveolar infiltrate is present posteriorly in the right lower lobe and posterior segments of both upper lobes. These are superimposed upon underlying moderate emphysema. The greatest emphysema is in the upper lobes. No lung mass is detected. There are no abnormally enlarged lymph nodes. The heart size is normal. Moderate amount of atherosclerotic plaque is present in the coronary arteries. Aorta is normal in caliber. There is severe bilateral gynecomastia. Small hiatus hernia is noted. IMPRESSION: Bilateral pulmonary infiltrates, predominantly involving the left lower lobe. This may be a combination of pneumonia and atelectasis. These are new since 02/18/20. Moderate emphysema Calcified pleural plaques consistent with prior asbestos exposure. Atherosclerotic coronary artery disease, without evidence of congestive heart failure Interpreted and Authenticated by: Moo James 09/23/22
[2022-09-23] MEDS: ENOXAPARIN 30 MG/0.3 ML SYRINGE SQ SCH (10:35)
--- NOTE | 2022-09-23 10:58 | Internal Med Progress Note ---
SUBJECTIVE Subjective Patient information: Note initiated : 09/23/22 at 10:53 am Service Date, if different from initiated Date: [] Patient: Lalit Moyer a 87 y/o M admitted on 09/23/22. Chief Complaint: [] Additional PMFSH (Level 3 Only): Mr. 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 He went to his bed in normal state of health but woke up around 1 AM with an episode of vomiting. He had another couple of episodes of vomiting through the day and was feeling very weak and tired. Throughout the day family noted that patient was somewhat lethargic, confused and stumbling over words. Patient felt some pressure and thought his suprapubic catheter was not draining however noted blood in the catheter. His p.o. intake was low he was not eating and was nauseous. Patient follows up with Dr. Obregon and his last visit was about a week ago when he had his suprapubic catheter changed. Patient denies fever, chills, abdominal pain, diarrhea, constipation, difficulty breathing, cardiac chest pain, heart palpitations, hematemesis, melena, hematochezia. On presentation patient was tachypneic with respiratory rate 31, tachycardia heart rate 113, he was hypoxic of 84% and required 2 L nasal cannula oxygen. Labs were remarkable for WBCs 27,000, hemoglobin 13.4. Lactic acid 4.1. Procalcitonin elevated at 14. Normal electrolytes. Creatinine 2.3 consistent with YEIMY. UA positive for leukocyte Estrace, RBC, WBC, bacteria. CT abdomen and pelvis showed some nonspecific inflammatory changes around left kidney and Gerota fascia extending into the left side of the pelvis. This may be secondary to passage of stone or known inflammatory process. Multiple bladder calculi were noted. Chest x-ray concerning for pneumonia formal read is pending. EKG showed sinus tachycardia ventricular rate 1122 bpm, some PVCs, no acute ST-T wave changes. 7/8. Overall feels well bit better. Reports always have some labored breathing from his COPD. Still hypotensive with blood pressure of 87/60, on IV fluids. Fluctuating between 4 and 8 L nasal cannula oxygen. While I was in the room I weaned it down to 3 L and he was still around 92%. Leukocytosis improved to 23,000 from 27, hemoglobin down to 11.7 from 13.4, but some element of hemodilution. Lactic acidosis cleared and down to 1.8 from 3.0 previously. Creatinine down to 2.1 from 2.3 yesterday. Chest x-ray from 09/23 reviewed. 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 CTA chest was obtained this morning and it showed bilateral pulmonary infiltrates, left base more than right. This could be pneumonia. Patient has moderate emph ysema. 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 Review of system 14 point review of system completed pertinent positive and negative mentioned above. Physical examination General appearance: Absent in distress Head Head: Present atraumatic and normocephalic Eye Eye: Present PERRL and EOMI ENT ENT: Present mucous membranes dry; Absent nasal congestion. Hearing aids in place, Neck Neck: Present full ROM; Absent meningismus Chest Chest: Present normal inspection; Absent tenderness Respiratory Respiratory: Patient mild tachypnea, slightly reduced air entry in the bases with some Rales, on 3 L nasal cannula oxygen wean down from 8 L Cardiovascular Cardiovascular: Present normal rhythm and tachycardia, no murmurs heard Adbominal Abdominal: Present soft; Absent tenderness : Present other (Suprapubic catheter in place), no hematuria, yellow-colored urine Extremities Extremities: Present normal inspection and normal capillary refill Back Back: Absent CVA tenderness (R) or CVA tenderness (L) Neurological Neurological: Present alert and oriented X3, mentation is getting back to baseline, no focal deficits Psychiatric Psychiatric: Present flat affect and polite Skin Skin: Present warm (WNL) and intact Assessment and plan Severe sepsis, presented with tachycardia, tachypnea, significant leukocytosis and UTI/pneumonia UTI, catheter associated. Patient has suprapubic catheter which was changed recently by his urologist. UA is positive. CT abdomen and pelvis showed some nonspecific inflammatory changes around left kidney and Gerota fascia extending into the left side of the pelvis. This may be secondary to passage of stone or inflammatory process. Multiple bladder calculi were noted. Patient with history of recurrent UTIs when he had Larsen catheter and this was changed to suprapubic catheter. Previous cultures reviewed, with growth of multiorganism including Pseudomonas. Continue Pseudomonas dose of Zosyn renally dosed per pharmacy vancomycin per pharmacy. Will DC IV fluids and will give IV boluses if needed. Pneumonia. Patient vomited few times. Possible aspiration. Chest x-ray from 09/23 reviewed. 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 CTA chest was obtained this morning and it showed bilateral pulmonary infiltrates, left base more than right. This could be pneumonia. Patient has moderate emphysema. 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 Zosyn and vancomycin will cover. Acute hypoxic respiratory failure. Secondary to above. Continue supplemental oxygen. DuoNebs, budesonide, pulmonary toileting Acute kidney injury. Likely secondary to dehydration. Improving with IV hydration. Hematuria, likely in the setting of bladder and ureter stone. No hematuria since admission Altered mental status. Acute encephalopathy. CT head negative for acute finding. Likely secondary to above resolving Prostate cancer on Casodex and responding well but declining PSA COPD/emphysema, DuoNebs, budesonide Obstructive sleep apnea does not tolerate CPAP Hypertension, currently hypotensive, will hold off on all BP meds Hyperlipidemia, continue simvastatin GERD, continue PPI Severe deconditioning/generalized weakness. PT eval DVT prophylaxis in place CODE STATUS full code. Critical care time 40 min Constitutional Vitals: Vital Signs Temp Pulse Resp BP Pulse Ox O2 Del Method O2 Flow Rate 98.6 F 93 H 34 H 87/60 97 Heated High Flow Nasal Cannula 8 09/23/22 08:00 09/23/22 09:32 09/23/22 09:32 09/23/22 09:32 09/23/22 09:32 09/23/22 09:32 09/23/22 09:32 Period Temp Pulse Resp BP Sys/Morales Pulse Ox O2 Del Method O2 Flow Rate Last 24 Hr 97.7 F-101.3 F 90-130 17-36 79-119/42-66 84-97 Heated High Flow Nasal Ca-Room Air 2-8 Intake and Output 09/22/22 09/23/22 09/23/22 19:59 03:59 11:59 Intake Total 2250 1580 Output Total 375 Balance 2250 1205 Weight 97.522 kg 99.564 kg Intake & Output: Intake & Output 09/22/22 09/23/22 09/23/22 19:59 03:59 11:59 Intake Total 2250 1580 Output Total 375 Balance 2250 1205 Weight 97.522 kg 99.564 kg Intake: IV 2250 1100 Sodium Chloride 0.9% 1,000 ml @ 2000 1000 Wide Open IV BOLUS ONE Rx#: [id number] Zosyn 3.375 gm In Dextrose 5% 100 in Water 50 ml @ 100 mls/hr IV Q6H [facility] Rx#:[id number] Vancomycin 1,000 mg In Sodium 250 Chloride 0.9% 250 ml @ 250 mls/ hr IV ONCE ONE Rx#:[id number] Oral 480 Output: Urine Catheter Amount 375 Other: Urine Appearance Sediment Suprapubic Cloudy Hematuria Urine Color Tea Colored Suprapubic Dark Red Urine Odor Strong Stool Size Smear Stool Color Brown Stool Consistency Soft # of times incontinent of 1 Bowels OBJ DATA Labs 09/23/22 06:27 09/23/22 06:27 Labs: Abnormal Lab Results 09/23/22 09/23/22 09/23/22 08:13 06:27 06:27 WBC 23.0 H RBC 3.86 L Hgb 11.7 L Hct 36.2 L POC Hct Immature Gran % (Auto) 1.1 H Neut % (Auto) 92.1 H Lymph % (Auto) 2.6 L Lymph # (Auto) 0.59 L [place] # (Auto) 0.94 H Immature Gran # 0.26 H Absolute Neutrophils 21.21 H POC pCO2 32.0 L POC pO2 59 L POC HCO3 17.7 L POC ABG Base Excess -8.0 L POC VBG pH POC VBG pCO2 at Temp POC VBG pO2 POC VBG HCO3 POC VBG Total CO2 POC Venous O2 Sat POC VBG Base Excess VBG Lactic Acid Hgb O2 Saturation 89.0 L Carbon Dioxide 19 L POC Total CO2 19.0 L POC Anion Gap POC BUN BUN 30 H Creatinine 2.1 H POC Creatinine Glucose 125 H POC Glucose Calcium 8.0 L POC WB Ioniz Calcium Direct Bilirubin Total Protein 5.7 L Albumin 2.9 L Procalcitonin Urine Appearance Urine Protein Ur Leukocyte Esterase Urine RBC Urine WBC Urine Bacteria Urine Mucus 09/23/22 09/22/22 09/22/22 01:38 22:58 22:13 WBC RBC Hgb Hct POC Hct 39.0 L Immature Gran % (Auto) Neut % (Auto) Lymph % (Auto) Lymph # (Auto) [place] # (Auto) Immature Gran # Absolute Neutrophils POC pCO2 POC pO2 POC HCO3 POC ABG Base Excess POC VBG pH POC VBG pCO2 at Temp POC VBG pO2 POC VBG HCO3 POC VBG Total CO2 POC Venous O2 Sat POC VBG Base Excess VBG Lactic Acid 3.0 H 3.6 H Hgb O2 Saturation Carbon Dioxide POC Total CO2 21.0 L POC Anion Gap POC BUN 30 H BUN Creatinine POC Creatinine 2.3 H Glucose POC Glucose 125 H Calcium POC WB Ioniz Calcium 1.03 L Direct Bilirubin Total Protein Albumin Procalcitonin Urine Appearance Urine Protein Ur Leukocyte Esterase Urine RBC Urine WBC Urine Bacteria Urine Mucus 09/22/22 09/22/22 09/22/22 22:12 22:05 19:43 WBC RBC Hgb Hct POC Hct Immature Gran % (Auto) Neut % (Auto) Lymph % (Auto) Lymph # (Auto) [place] # (Auto) Immature Gran # Absolute Neutrophils POC pCO2 POC pO2 POC HCO3 POC ABG Base Excess POC VBG pH 7.44 H POC VBG pCO2 at Temp 37.1 L 23.6 L POC VBG pO2 41 H POC VBG HCO3 19.4 L 16.2 L POC VBG Total CO2 21.0 L 17.0 L POC Venous O2 Sat 80.0 H POC VBG Base Excess -7.0 L -8.0 L VBG Lactic Acid 3.3 H 4.1 H* Hgb O2 Saturation Carbon Dioxide POC Total CO2 POC Anion Gap POC BUN BUN Creatinine POC Creatinine Glucose POC Glucose Calcium POC WB Ioniz Calcium Direct Bilirubin Total Protein Albumin Procalcitonin Urine Appearance Hazy A Urine Protein 100 A Ur Leukocyte Esterase 500 A Urine RBC 9 H Urine WBC 74 H Urine Bacteria Many A Urine Mucus Few A 09/22/22 09/22/22 09/22/22 19:38 19:31 19:25 WBC RBC Hgb Hct POC Hct Immature Gran % (Auto) Neut % (Auto) Lymph % (Auto) Lymph # (Auto) [place] # (Auto) Immature Gran # Absolute Neutrophils POC pCO2 POC pO2 POC HCO3 POC ABG Base Excess POC VBG pH POC VBG pCO2 at Temp POC VBG pO2 POC VBG HCO3 POC VBG Total CO2 POC Venous O2 Sat POC VBG Base Excess VBG Lactic Acid Hgb O2 Saturation Carbon Dioxide POC Total CO2 19.0 L POC Anion Gap 18.0 H POC BUN 30 H BUN Creatinine POC Creatinine 2.2 H Glucose POC Glucose 150 H Calcium POC WB Ioniz Calcium 1.11 L Direct Bilirubin 0.3 H Total Protein Albumin Procalcitonin 14.54 H Urine Appearance Urine Protein Ur Leukocyte Esterase Urine RBC Urine WBC Urine Bacteria Urine Mucus 09/22/22 19:25 WBC 27.8 H RBC 4.40 L Hgb 13.4 L Hct POC Hct Immature Gran % (Auto) 1.7 H Neut % (Auto) 89.7 H Lymph % (Auto) 2.9 L Lymph # (Auto) 0.81 L [place] # (Auto) 1.29 H Immature Gran # 0.48 H Absolute Neutrophils 24.94 H POC pCO2 POC pO2 POC HCO3 POC ABG Base Excess POC VBG pH POC VBG pCO2 at Temp POC VBG pO2 POC VBG HCO3 POC VBG Total CO2 POC Venous O2 Sat POC VBG Base Excess VBG Lactic Acid Hgb O2 Saturation Carbon Dioxide POC Total CO2 POC Anion Gap POC BUN BUN Creatinine POC Creatinine Glucose POC Glucose Calcium POC WB Ioniz Calcium Direct Bilirubin Total Protein Albumin Procalcitonin Urine Appearance Urine Protein Ur Leukocyte Esterase Urine RBC Urine WBC Urine Bacteria Urine Mucus Meds: Medications Acetaminophen (Acetaminophen 325 Mg Tablet) 650 mg PO Q6HP PRN; Protocol PRN Reason: Per Pain Protocol/Fever > 101 Last Admin: 09/23/22 04:14 Dose: 650 mg Albuterol/Ipratropium (Ipratropium/Albuterol 3 Ml Ampul.Neb) 3 ml NEB Q6HRT [facility] Last Admin: 09/23/22 07:00 Dose: 3 ml Budesonide (Budesonide 0.5 Mg/2 Ml Ampul.Neb) 0.5 mg NEB Q12 [facility] Last Admin: 09/23/22 07:00 Dose: 0.5 mg Ceftriaxone Sodium (Ceftriaxone 1 Gm Vial) 1 gm IV DAILY [facility] Docusate Sodium (Docusate Sodium 100 Mg Capsule) 100 mg PO BID [facility] Last Admin: 09/23/22 10:07 Dose: Not Given Enoxaparin Sodium (Enoxaparin 30 Mg/0.3 Ml Syringe) 30 mg SQ DAILY [facility] Last Admin: 09/23/22 10:35 Dose: 30 mg Lactated Ringer's (Lactated Ringers) 1,000 mls @ 50 mls/hr IV .Q20H [facility] Last Admin: 09/23/22 02:18 Dose: 50 mls/hr Piperacillin Sod/Tazobactam (Sod 3.375 gm/ Dextrose) 50 mls @ 100 mls/hr IV Q6H [facility] Last Infusion: 09/23/22 10:06 Dose: Infused Vancomycin HCl 1,500 mg/ (Sodium Chloride) 500 mls @ 333.3 mls/hr IV ONCE ONE Stop: 09/23/22 15:30 Lactulose (Lactulose 20 Gm/30 Ml Oral.Taya) 10 gm PO DAILYP PRN PRN Reason: Constipation Ondansetron HCl (Ondansetron 4 Mg/2 Ml Vial) 4 mg IV Q4HP PRN; Protocol PRN Reason: Nausea And Vomiting Oxycodone/Acetaminophen (Oxycodone/Apap 5/325mg Tablet) 1 tab PO Q4HP PRN; Protocol PRN Reason: Per Pain Protocol Pantoprazole Sodium (Pantoprazole 40 Mg Tablet) 40 mg PO QAMAC [facility] Last Admin: 09/23/22 07:42 Dose: 40 mg Senna (Sennosides 1 Tablet) 2 tab PO HSP PRN PRN Reason: Constipation Sodium Chloride (0.9 % Sodium Chloride 10 Ml Syringe) 10 ml IV Q8 [facility] Last Admin: 09/23/22 05:08 Dose: Not Given Vancomycin HCl (Vancomycin Per Pharmacy) 1 order IV DAILY [facility]; Protocol A/P Time Spent With Patient Time: Total time spent is greater than 50% in coordination of care (as documented) at patient's floor/unit and/or counseling patient: QUALITY VTE Deep Vein Thrombosis/Pulmonary Embolism Present on Admission: No
[2022-09-23] MEDS: VANCOMYCIN PER PHARMACY IV SCH (12:40)
[2022-09-23] MEDS: oxyCODONE/APAP 5/325MG TABLET PO PRN ×2 (13:04→23:34)
[2022-09-23] MEDS ORDERED: VANCOMYCIN 1,500 MG in 0.9 % SODIUM CHLORIDE 500 ML IV ONE (14:00)
[2022-09-23] MEDS ORDERED: cefTRIAXone 1 GM VIAL IV SCH (14:00)
--- NOTE | 2022-09-23 14:45 | XRay Report ---
HISTORY: Abdominal distention causing respiratory distress FINDINGS: There is a moderate amount gas in the stomach but it is not abnormally distended. There is air in normal caliber large intestine. Small bowel does not appear to be dilated. Patient has a very large abdominal girth which was confirmed on the prior CT performed yesterday. IMPRESSION: Normal exam Interpreted and Authenticated by: Moo James 09/23/22
[2022-09-23] MEDS: METOPROLOL TARTRATE 5 MG/5 ML VIAL IV SCH (17:32)
[2022-09-23] MEDS ORDERED: METOPROLOL TARTRATE 5 MG/5 ML VIAL IV ONE (17:33)
[2022-09-23] MEDS ORDERED: 0.9 % SODIUM CHLORIDE 500 ML IV ONE (18:00)
[2022-09-23] MEDS ORDERED: 0.9 % SODIUM CHLORIDE 250 ML IV ONE (22:41)
[2022-09-23] MEDS: CALCIUM W/VIT D3 500 MG TABLET PO SCH (23:02)
[2022-09-23] MEDS: LIDOCAINE 5 GM CREAM.TOP TOPICAL PRN (23:41)
[2022-09-24] MEDS: IPRATROPIUM/ALBUTEROL 3 ML AMPUL.NEB NEB SCH ×4 (00:44→18:40)
[2022-09-24] MEDS: METOPROLOL TARTRATE 5 MG/5 ML VIAL IV SCH ×3 (00:55→12:21)
[2022-09-24] MEDS: 0.9 % SODIUM CHLORIDE 10 ML SYRINGE IV SCH ×3 (05:00→20:01)
[2022-09-24] MEDS: PIPERACILLIN SODIUM/TAZOBACTAM 3.375 GM in DEXTROSE 5% IN WATER 50 ML IV SCH ×4 (05:00→23:55)
[2022-09-24 06:25] LABS: Basophils # (Auto) 0.02 K/mcL (0.00-0.30); Basophils % (Auto) 0.1 % (0.0-2.0); Eosinophils # (Auto) 0.01 K/mcL (0.00-0.70); Eosinophils % (Auto) 0.1 % (0.0-7.0); Hematocrit 34.6 % (40.1-51.0); Hemoglobin 11.1 g/dL (13.7-17.5); Lymphocytes # (Auto) 0.34 K/mcL (1.50-4.80); Lymphocytes % (Auto) 1.7 % (15.5-49.0); Mean Cell Volume 95.6 fL (80.0-100.0); Mean Corpuscular HGB Conc 32.1 g/dL (31.0-36.0); Mean Platelet Volume 11.9 fL (8.8-12.5); Monocytes # (Auto) 0.77 K/mcL (0.10-0.90); Monocytes % (Auto) 3.9 % (1.0-12.0); Neutrophils % (Auto) 92.3 % (38.0-78.0); Platelet Count 112 K/mcL (140-440); RBC 3.62 M/mcL (4.63-6.08); Red Cell Distribution Width 13.8 % (11.5-14.5)
[2022-09-24] MEDS: BUDESONIDE 0.5 MG/2 ML AMPUL.NEB NEB SCH ×3 (06:45→20:13)
[2022-09-24 06:48] LABS: Vancomycin,Random 17.2 ug/mL
[2022-09-24 06:53] LABS: ALT/SGPT 23 U/L (<40); AST/SGOT 28 U/L (<40); Albumin 2.6 gm/dL (3.2-5.2); Albumin/Globulin Ratio 0.8 (1.0-2.3); Alkaline Phosphatase 85 U/L (39-117); Bilirubin,Total 0.5 mg/dL (0.1-1.0); Blood Urea Nitrogen 41 mg/dL (8-23); Carbon Dioxide 18 mmol/L (22-30); Chloride 105 mmol/L (96-108); Globulin 3.2 gm/dL (2.2-3.7); Glomerular Filtration Rate 18; Glucose 106 mg/dL (70-105)
[2022-09-24 07:25] LABS: WBC 19.7 K/mcL (4.5-11.0)
[2022-09-24] MEDS: CALCIUM W/VIT D3 500 MG TABLET PO SCH ×2 (08:50→20:01)
[2022-09-24] MEDS: ENOXAPARIN 30 MG/0.3 ML SYRINGE SQ SCH (08:50)
[2022-09-24] MEDS: PANTOPRAZOLE 40 MG TABLET PO SCH (08:50)
[2022-09-24] MEDS: DOCUSATE SODIUM 100 MG CAPSULE PO SCH ×2 (08:51→20:13)
--- NOTE | 2022-09-24 08:53 | XRay Report ---
HISTORY: Hypertension, nausea and vomiting, short of breath FINDINGS: Moderately severe diffuse alveolar infiltrates have developed in both lungs. These have become significantly worse since 09/22/22. The heart is moderately enlarged and has increased in size. There are calcified pleural plaques in the lower thorax. There are several overlying artifacts are present. IMPRESSION: Pulmonary edema. Superimposed pneumonia cannot be excluded. Interpreted and Authenticated by: Moo James 09/24/22
--- NOTE | 2022-09-24 08:56 | Internal Med Progress Note ---
SUBJECTIVE Subjective Patient information: Note initiated : 09/24/22 at 8:50 am Service Date, if different from initiated Date: [] Patient: Lalit Moyer a 87 y/o M admitted on 09/23/22. Chief Complaint: [] Additional PMFSH (Level 3 Only): Mr. 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 He went to his bed in normal state of health but woke up around 1 AM with an episode of vomiting. He had another couple of episodes of vomiting through the day and was feeling very weak and tired. Throughout the day family noted that patient was somewhat lethargic, confused and stumbling over words. Patient felt some pressure and thought his suprapubic catheter was not draining however noted blood in the catheter. His p.o. intake was low he was not eating and was nauseous. Patient follows up with Dr. Obregon and his last visit was about a week ago when he had his suprapubic catheter changed. Patient denies fever, chills, abdominal pain, diarrhea, constipation, difficulty breathing, cardiac chest pain, heart palpitations, hematemesis, melena, hematochezia. On presentation patient was tachypneic with respiratory rate 31, tachycardia heart rate 113, he was hypoxic of 84% and required 2 L nasal cannula oxygen. Labs were remarkable for WBCs 27,000, hemoglobin 13.4. Lactic acid 4.1. Procalcitonin elevated at 14. Normal electrolytes. Creatinine 2.3 consistent with YEIMY. UA positive for leukocyte Estrace, RBC, WBC, bacteria. CT abdomen and pelvis showed some nonspecific inflammatory changes around left kidney and Gerota fascia extending into the left side of the pelvis. This may be secondary to passage of stone or known inflammatory process. Multiple bladder calculi were noted. Chest x-ray concerning for pneumonia formal read is pending. EKG showed sinus tachycardia ventricular rate 1122 bpm, some PVCs, no acute ST-T wave changes. 7/8. Overall feels well bit better. Reports always have some labored breathing from his COPD. Still hypotensive with blood pressure of 87/60, on IV fluids. Fluctuating between 4 and 8 L nasal cannula oxygen. While I was in the room I weaned it down to 3 L and he was still around 92%. Leukocytosis improved to 23,000 from 27, hemoglobin down to 11.7 from 13.4, but some element of hemodilution. Lactic acidosis cleared and down to 1.8 from 3.0 previously. Creatinine down to 2.1 from 2.3 yesterday. Chest x-ray from 09/23 reviewed. 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 CTA chest was obtained this morning and it showed bilateral pulmonary infiltrates, left base more than right. This could be pneumonia. Patient has moderate emphy sema. 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 09/24. Patient appears tired, somewhat tachypneic, smiling and reports no issues. Patient became hypotensive last evening after receiving metoprolol for his tachycardia. He was given 250 cc bolus and blood pressure improved. Creatinine increased to 3.0 from 2.1 yesterday could be secondary to episode of hypotension. He has history of CKD stage III. Reviewed I's and O's. Patient is net positive over 4 L since admission. Echo from February 2020 reviewed. Preserved EF 55-60%, no diastolic dysfunction, no significant valvular dys function. Patient BNP is elevated at 8978. Chest x-ray obtained is showing pulmonary edema. Procalcitonin is down to 6 from 14 couple days ago. Blood culture from 09/22 growing gram-negative bacilli. Urine culture pending. Review of system 14 point review of system completed pertinent positive and negative mentioned above. Physical examination General appearance: Well-nourished male, appears ill and tired Head Head: Present atraumatic and normocephalic Eye Eye: Present PERRL and EOMI ENT ENT: Present mucous membranes dry; Absent nasal congestion. Hearing aids in place, Neck Neck: Present full ROM; Absent meningismus Chest Chest: Present normal inspection; Absent tenderness Respiratory Respiratory: Patient mild tachypnea, bl rales and wheeze, on 8 L nasal cannula oxygen Cardiovascular Cardiovascular: Present normal rhythm and tachycardia, no murmurs heard, trace peripheral edema Adbominal Abdominal: Present soft; Absent tenderness : Present other (Suprapubic catheter in place), no hematuria, yellow-colored urine Extremities Extremities: Present normal inspection and normal capillary refill Back Back: Absent CVA tenderness (R) or CVA tenderness (L) Neurological Neurological: Present alert, tired, no focal deficits Psychiatric Psychiatric: Present flat affect and polite Skin Skin: Present warm (WNL) and intact Assessment and plan Severe sepsis, presented with tachycardia, tachypnea, significant leukocytosis and UTI/pneumonia UTI, catheter associated. Patient has suprapubic catheter which was changed recently by his urologist. UA is positive. Urine culture pending. CT abdomen and pelvis showed some nonspecific inflammatory changes around left kidney and Gerota fascia extending into the left side of the pelvis. This may be secondary to passage of stone or inflammatory process. Multiple bladder calculi were noted. Patient with history of recurrent UTIs when he had Larsen catheter and this was changed to suprapubic catheter. Previous cultures reviewed, with growth of multiorganism including Pseudomonas. Continue renally dosed Zosyn to cover for Pseudomonas. Blood cultures growing gram-negative bacillus likely from UTI. Follow final culture Pneumonia, suspect aspiration. Patient vomited few times prior to admission. Chest x-ray from 09/23. 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 CTA chest showed bilateral pulmonary infiltrates, left base more than right. This could be pneumonia. Patient has moderate emphysema. 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 On Zosyn and vancomycin. Will hold vancomycin due to YEIMY. MRSA screen pending Gram-negative bacteremia. Likely from UTI vs PNA. Blood culture from 09/22 growing gram-negative bacilli. Urine culture pending. COPD/emphysema exacerbation. Patient is now wheezing. We will start on IV Solu-Medrol 40 mg 3 times daily, DuoNebs, budesonide CHF/volume overload. Reviewed I's and O's. Patient is net positive over 4 L since admission. Echo from February 2020 reviewed. Preserved EF 55-60%, no diastolic dysfunction, no significant valvular dysfunction. Patient BNP is elevated at 8978. Chest x-ray obtained is showing pulmonary edema. We will give IV Lasix 30 mg x 1 and monitor renal functions. Acute hypoxic respiratory failure. Secondary to above. Continue supplemental oxygen. Diuresis, DuoNebs, budesonide, pulmonary toileting YEIMY on CKD stage III. Will hold all nephrotoxic's including vancomycin. Patient suprapubic catheter is draining. We will repeat BMP this afternoon Hematuria, likely in the setting of bladder and ureter stone. No hematuria since admission Altered mental status. Acute encephalopathy. CT head negative for acute finding. Likely secondary to above resolving Prostate cancer on Casodex and responding well but declining PSA Obstructive sleep apnea does not tolerate CPAP Hypertension, currently hypotensive, will hold off on all BP meds Hyperlipidemia, continue simvastatin GERD, continue PPI Severe deconditioning/generalized weakness. PT eval DVT prophylaxis in place CODE STATUS full code. Critical care time 70 min Constitutional Vitals: Vital Signs Temp Pulse Resp BP Pulse Ox O2 Del Method O2 Flow Rate 98.7 F 112 H 18 106/66 93 Oxymask 8 09/24/22 08:00 09/24/22 08:00 09/24/22 08:00 09/24/22 08:00 09/24/22 08:00 09/24/22 08:00 09/24/22 08:00 Period Temp Pulse Resp BP Sys/Morales Pulse Ox O2 Del Method O2 Flow Rate Last 24 Hr 97.9 F-102.9 F 93-126 13-36 73-132/45-94 88-98 Heated High Flow Nasal Ca-Oxymask 8-8 Intake and Output 09/23/22 09/24/22 09/24/22 19:59 03:59 11:59 Intake Total 1600 300 50 Output Total 302 255 85 Balance 1298 45 -35 Weight 99.79 kg Intake & Output: Intake & Output 09/23/22 09/24/22 09/24/22 19:59 03:59 11:59 Intake Total 1600 300 50 Output Total 302 255 85 Balance 1298 45 -35 Weight 99.79 kg Intake: IV 1600 300 50 Sodium Chloride 0.9% 250 ml @ 250 250 mls/hr IV BOLUS ONE Rx#: [id number] Sodium Chloride 0.9% 500 ml @ 500 Wide Open IV BOLUS ONE Rx#: [id number] Lactated Ringers 1,000 ml @ 50 500 mls/hr IV .Q20H JYOTI Rx#: [id number] Zosyn 3.375 gm In Dextrose 5% 100 50 50 in Water 50 ml @ 100 mls/hr IV Q6H JYOTI Rx#:[id number] Vancomycin 1,500 mg In Sodium 500 Chloride 0.9% 500 ml @ 333.3 mls/hr IV ONCE ONE Rx#: [id number] Output: Urine Catheter Amount 302 255 85 Other: Urine Appearance Cloudy Hematuria Clear Sediment Mucous Threads Hematuria Suprapubic Cloudy Cloudy Hematuria Hematuria Urine Color Light Denise Light Denise Light Denise Suprapubic Light Denise Light Denise Urine Odor Foul Foul Foul # Bowel Movements 0 # of times incontinent of 1 Bowels OBJ DATA Labs 09/24/22 05:08 09/24/22 05:08 Labs: Abnormal Lab Results 09/24/22 09/24/22 09/24/22 07:44 07:26 05:08 WBC RBC Hgb Hct POC Hct Plt Count Immature Gran % (Auto) Neut % (Auto) Lymph % (Auto) Lymph # (Auto) [place] # (Auto) Immature Gran # Absolute Neutrophils POC pH 7.32 L POC pCO2 POC pO2 62 L POC HCO3 18.5 L POC ABG Base Excess -8.0 L POC VBG pH POC VBG pCO2 at Temp POC VBG pO2 POC VBG HCO3 POC VBG Total CO2 POC Venous O2 Sat POC VBG Base Excess VBG Lactic Acid Hgb O2 Saturation 90.0 L Carbon Dioxide POC Total CO2 20.0 L POC Anion Gap POC BUN BUN Creatinine POC Creatinine Glucose POC Glucose Calcium POC WB Ioniz Calcium Direct Bilirubin NT-Pro-B Natriuret Pep 8978.0 H Total Protein Albumin Albumin/Globulin Ratio Procalcitonin 6.83 H Urine Appearance Urine Protein Ur Leukocyte Esterase Urine RBC Urine WBC Urine Bacteria Urine Mucus 09/24/22 09/24/22 09/23/22 05:08 05:08 08:13 WBC 19.7 H RBC 3.62 L Hgb 11.1 L Hct 34.6 L POC Hct Plt Count 112 L Immature Gran % (Auto) 1.9 H Neut % (Auto) 92.3 H Lymph % (Auto) 1.7 L Lymph # (Auto) 0.34 L [place] # (Auto) Immature Gran # 0.37 H Absolute Neutrophils 18.14 H POC pH POC pCO2 32.0 L POC pO2 59 L POC HCO3 17.7 L POC ABG Base Excess -8.0 L POC VBG pH POC VBG pCO2 at Temp POC VBG pO2 POC VBG HCO3 POC VBG Total CO2 POC Venous O2 Sat POC VBG Base Excess VBG Lactic Acid Hgb O2 Saturation 89.0 L Carbon Dioxide 18 L POC Total CO2 19.0 L POC Anion Gap POC BUN BUN 41 H Creatinine 3.0 H POC Creatinine Glucose 106 H POC Glucose Calcium 8.0 L POC WB Ioniz Calcium Direct Bilirubin NT-Pro-B Natriuret Pep Total Protein 5.8 L Albumin 2.6 L Albumin/Globulin Ratio 0.8 L Procalcitonin Urine Appearance Urine Protein Ur Leukocyte Esterase Urine RBC Urine WBC Urine Bacteria Urine Mucus 09/23/22 09/23/22 09/23/22 06:27 06:27 01:38 WBC 23.0 H RBC 3.86 L Hgb 11.7 L Hct 36.2 L POC Hct Plt Count Immature Gran % (Auto) 1.1 H Neut % (Auto) 92.1 H Lymph % (Auto) 2.6 L Lymph # (Auto) 0.59 L [place] # (Auto) 0.94 H Immature Gran # 0.26 H Absolute Neutrophils 21.21 H POC pH POC pCO2 POC pO2 POC HCO3 POC ABG Base Excess POC VBG pH POC VBG pCO2 at Temp POC VBG pO2 POC VBG HCO3 POC VBG Total CO2 POC Venous O2 Sat POC VBG Base Excess VBG Lactic Acid 3.0 H Hgb O2 Saturation Carbon Dioxide 19 L POC Total CO2 POC Anion Gap POC BUN BUN 30 H Creatinine 2.1 H POC Creatinine Glucose 125 H POC Glucose Calcium 8.0 L POC WB Ioniz Calcium Direct Bilirubin NT-Pro-B Natriuret Pep Total Protein 5.7 L Albumin 2.9 L Albumin/Globulin Ratio Procalcitonin Urine Appearance Urine Protein Ur Leukocyte Esterase Urine RBC Urine WBC Urine Bacteria Urine Mucus 09/22/22 09/22/22 09/22/22 22:58 22:13 22:12 WBC RBC Hgb Hct POC Hct 39.0 L Plt Count Immature Gran % (Auto) Neut % (Auto) Lymph % (Auto) Lymph # (Auto) [place] # (Auto) Immature Gran # Absolute Neutrophils POC pH POC pCO2 POC pO2 POC HCO3 POC ABG Base Excess POC VBG pH POC VBG pCO2 at Temp POC VBG pO2 POC VBG HCO3 POC VBG Total CO2 POC Venous O2 Sat POC VBG Base Excess VBG Lactic Acid 3.6 H Hgb O2 Saturation Carbon Dioxide POC Total CO2 21.0 L POC Anion Gap POC BUN 30 H BUN Creatinine POC Creatinine 2.3 H Glucose POC Glucose 125 H Calcium POC WB Ioniz Calcium 1.03 L Direct Bilirubin NT-Pro-B Natriuret Pep Total Protein Albumin Albumin/Globulin Ratio Procalcitonin Urine Appearance Hazy A Urine Protein 100 A Ur Leukocyte Esterase 500 A Urine RBC 9 H Urine WBC 74 H Urine Bacteria Many A Urine Mucus Few A 09/22/22 09/22/22 09/22/22 22:05 19:43 19:38 WBC RBC Hgb Hct POC Hct Plt Count Immature Gran % (Auto) Neut % (Auto) Lymph % (Auto) Lymph # (Auto) [place] # (Auto) Immature Gran # Absolute Neutrophils POC pH POC pCO2 POC pO2 POC HCO3 POC ABG Base Excess POC VBG pH 7.44 H POC VBG pCO2 at Temp 37.1 L 23.6 L POC VBG pO2 41 H POC VBG HCO3 19.4 L 16.2 L POC VBG Total CO2 21.0 L 17.0 L POC Venous O2 Sat 80.0 H POC VBG Base Excess -7.0 L -8.0 L VBG Lactic Acid 3.3 H 4.1 H* Hgb O2 Saturation Carbon Dioxide POC Total CO2 POC Anion Gap POC BUN BUN Creatinine POC Creatinine Glucose POC Glucose Calcium POC WB Ioniz Calcium Direct Bilirubin 0.3 H NT-Pro-B Natriuret Pep Total Protein Albumin Albumin/Globulin Ratio Procalcitonin Urine Appearance Urine Protein Ur Leukocyte Esterase Urine RBC Urine WBC Urine Bacteria Urine Mucus 09/22/22 09/22/22 09/22/22 19:31 19:25 19:25 WBC 27.8 H RBC 4.40 L Hgb 13.4 L Hct POC Hct Plt Count Immature Gran % (Auto) 1.7 H Neut % (Auto) 89.7 H Lymph % (Auto) 2.9 L Lymph # (Auto) 0.81 L [place] # (Auto) 1.29 H Immature Gran # 0.48 H Absolute Neutrophils 24.94 H POC pH POC pCO2 POC pO2 POC HCO3 POC ABG Base Excess POC VBG pH POC VBG pCO2 at Temp POC VBG pO2 POC VBG HCO3 POC VBG Total CO2 POC Venous O2 Sat POC VBG Base Excess VBG Lactic Acid Hgb O2 Saturation Carbon Dioxide POC Total CO2 19.0 L POC Anion Gap 18.0 H POC BUN 30 H BUN Creatinine POC Creatinine 2.2 H Glucose POC Glucose 150 H Calcium POC WB Ioniz Calcium 1.11 L Direct Bilirubin NT-Pro-B Natriuret Pep Total Protein Albumin Albumin/Globulin Ratio Procalcitonin 14.54 H Urine Appearance Urine Protein Ur Leukocyte Esterase Urine RBC Urine WBC Urine Bacteria Urine Mucus Meds: Medications Acetaminophen (Acetaminophen 325 Mg Tablet) 650 mg PO Q6HP PRN; Protocol PRN Reason: Per Pain Protocol/Fever > 101 Last Admin: 09/23/22 04:14 Dose: 650 mg Albuterol/Ipratropium (Ipratropium/Albuterol 3 Ml Ampul.Neb) 3 ml NEB Q6HRT [facility] Last Admin: 09/24/22 06:45 Dose: 3 ml Budesonide (Budesonide 0.5 Mg/2 Ml Ampul.Neb) 0.5 mg NEB Q12 [facility] Last Admin: 09/24/22 06:45 Dose: 0.5 mg Calcium/Vitamin D (Calcium W/Vit D3 500 Mg Tablet) 500 mg PO BID [facility] Last Admin: 09/23/22 23:02 Dose: 500 mg Docusate Sodium (Docusate Sodium 100 Mg Capsule) 100 mg PO BID [facility] Last Admin: 09/23/22 23:01 Dose: Not Given Enoxaparin Sodium (Enoxaparin 30 Mg/0.3 Ml Syringe) 30 mg SQ DAILY [facility] Last Admin: 09/23/22 10:35 Dose: 30 mg Piperacillin Sod/Tazobactam (Sod 3.375 gm/ Dextrose) 50 mls @ 100 mls/hr IV Q6H [facility] Last Infusion: 09/24/22 07:33 Dose: Infused Vancomycin HCl 500 mg/ Sodium (Chloride) 100 mls @ 100 mls/hr IV ONCE ONE Stop: 09/24/22 12:59 Lactulose (Lactulose 20 Gm/30 Ml Oral.Taya) 10 gm PO DAILYP PRN PRN Reason: Constipation Lidocaine (Lidocaine 5 Gm Cream.Top) 5 gm TOPICAL TIDP PRN PRN Reason: Pain Last Admin: 09/23/22 23:41 Dose: 5 gm Metoprolol Tartrate (Metoprolol Tartrate 5 Mg/5 Ml Vial) 5 mg IV Q6 [facility] Last Admin: 09/24/22 06:34 Dose: Not Given Ondansetron HCl (Ondansetron 4 Mg/2 Ml Vial) 4 mg IV Q4HP PRN; Protocol PRN Reason: Nausea And Vomiting Oxycodone/Acetaminophen (Oxycodone/Apap 5/325mg Tablet) 1 tab PO Q4HP PRN; Protocol PRN Reason: Per Pain Protocol Last Admin: 09/23/22 23:34 Dose: 1 tab Pantoprazole Sodium (Pantoprazole 40 Mg Tablet) 40 mg PO QAMAC JYOTI Last Admin: 09/23/22 07:42 Dose: 40 mg Senna (Sennosides 1 Tablet) 2 tab PO HSP PRN PRN Reason: Constipation Sodium Chloride (0.9 % Sodium Chloride 10 Ml Syringe) 10 ml IV Q8 JYOTI Last Admin: 09/24/22 05:00 Dose: 10 ml Vancomycin HCl (Vancomycin Per Pharmacy) 1 order IV DAILY JYOTI; Protocol Last Admin: 09/23/22 12:40 Dose: Not Given A/P Time Spent With Patient Time: Total time spent is greater than 50% in coordination of care (as documented) at patient's floor/unit and/or counseling patient: QUALITY VTE Deep Vein Thrombosis/Pulmonary Embolism Present on Admission: No
[2022-09-24] MEDS ORDERED: methylPREDNISolone SOD SUCC 40 MG/ML VIAL IV SCH (09:05)
[2022-09-24] MEDS ORDERED: FUROSEMIDE 40 MG/4 ML VIAL IV ONE (09:15)
[2022-09-24] MEDS: methylPREDNISolone SOD SUCC 40 MG/ML VIAL IV SCH ×3 (09:23→21:21)
[2022-09-24] MEDS ORDERED: VANCOMYCIN 500 MG in 0.9 % SODIUM CHLORIDE 100 ML IV ONE (12:00)
--- NOTE | 2022-09-24 12:52 | Internal Med Progress Note ---
SUBJECTIVE Subjective Patient information: Note initiated : 09/24/22 at 12:46 pm Service Date, if different from initiated Date: [] Patient: Lalit Moyer a 87 y/o M admitted on 09/23/22. Chief Complaint: [] Interval history: Mr. 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 He went to his bed in normal state of health but woke up around 1 AM with an episode of vomiting. He had another couple of episodes of vomiting through the day and was feeling very weak and tired. Throughout the day family noted that patient was somewhat lethargic, confused and stumbling over words. Patient felt some pressure and thought his suprapubic catheter was not draining however noted blood in the catheter. His p.o. intake was low he was not eating and was nauseous. Patient follows up with Dr. Obregon and his last visit was about a week ago when he had his suprapubic catheter changed. Patient denies fever, chills, abdominal pain, diarrhea, constipation, difficulty breathing, cardiac chest pain, heart palpitations, hematemesis, melena, hematochezia. On presentation patient was tachypneic with respiratory rate 31, tachycardia heart rate 113, he was hypoxic of 84% and required 2 L nasal cannula oxygen. Labs were remarkable for WBCs 27,000, hemoglobin 13.4. Lactic acid 4.1. Procalcitonin elevated at 14. Normal electrolytes. Creatinine 2.3 consistent with YEIMY. UA positive for leukocyte Estrace, RBC, WBC, bacteria. CT abdomen and pelvis showed some nonspecific inflammatory changes around left kidney and Gerota fascia extending into the left side of the pelvis. This may be secondary to passage of stone or known inflammatory process. Multiple bladder calculi were noted. Chest x-ray concerning for pneumonia formal read is pending. EKG showed sinus tachycardia ventricular rate 1122 bpm, some PVCs, no acute ST-T wave changes. 7/8. Overall feels well bit better. Reports always have some labored breathing from his COPD. Still hypotensive with blood pressure of 87/60, on IV fluids. Fluctuating between 4 and 8 L nasal cannula oxygen. While I was in the room I weaned it down to 3 L and he was still around 92%. Leukocytosis improved to 23,000 from 27, hemoglobin down to 11.7 from 13.4, but some element of hemodilution. Lactic acidosis cleared and down to 1.8 from 3.0 previously. C reatinine down to 2.1 from 2.3 yesterday. Chest x-ray from 09/23 reviewed. 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 CTA chest was obtained this morning and it showed bilateral pulmonary infiltrates, left base more than right. This could be pneumonia. Patient has moderate emphysema. 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 09/24. Patient appears tired, somewhat tachypneic, smiling and reports no issues. Patient became hypotensive last evening after receiving metoprolol for his tachycardia. He was given 250 cc bolus and blood pressure improved. Creatinine increased to 3.0 from 2.1 yesterday could be secondary to episode of hypotension. He has history of CKD stage III. Reviewed I's and O's. Patient is net positive over 4 L since admission. Echo from February 2020 reviewed. Preserved EF 55-60%, no diastolic dysfunction, no significant valvular dysfunction. Patient BNP is elevated at 8978. Chest x-ray obtained is showing pulmonary edema. Procalcitonin is down to 6 from 14 couple days ago. Blood culture from 09/22 growing gram-negative bacilli. Urine culture pending. 09/25. Yesterday evening, the patient went into atrial flutter with rapid ventricular response. Started oral Lopressor and IV Lopressor as needed. The patient converted back to normal sinus rhythm. After that, vitals remained essentially unchanged overnight, the patient continues to require 3 L/min oxygen supplementation. Urine culture grew pansensitive E. coli, blood culture grew pansensitive E. coli. Antibiotics consolidated to cefazolin. Echo showed LVEF 55 to 60%, unable to accurately assess left ventricular diastolic function due to abnormal rhythm, normal right ventricular size and function. Estimated pulmonary artery pressure of 52 mmHg, trace MR and AI. White blood cell count trending down however still elevated at 15.9. Creatinine increased from 3.3 yesterday to 3.6 today. Holding additional Lasix doses and monitoring volume status. Suprapubic Larsen catheter replaced today. Physical exam Head: Atraumatic, normal inspection. Eyes: normal appearance, no scleral icterus. Neck: full ROM Respiratory: 3 L/min oxygen supplementation. Cardiovascular: normal rate and rhythm, S1, S2. GI/Abdominal: soft, nontender, no guarding. : Suprapubic urinary catheter. Extremities: full range of motion, nontender. Neurological: CN II-XII intact, intact motor, intact sensation. Psychiatric: Impaired cognition. Skin: warm, normal color Constitutional Vitals: Vital Signs Temp Pulse Resp BP Pulse Ox O2 Del Method O2 Flow Rate 97.9 F 109 H 20 117/76 90 Nasal Cannula 5 09/24/22 12:00 09/24/22 12:09 09/24/22 12:09 09/24/22 12:00 09/24/22 12:09 09/24/22 12:09 09/24/22 12:09 Period Temp Pulse Resp BP Sys/Morales Pulse Ox O2 Del Method O2 Flow Rate Last 24 Hr 97.9 F-102.9 F 94-126 13-36 73-132/45-94 89-98 Nasal Cannula- Oxymask 5-8 Intake and Output 09/24/22 09/24/22 09/24/22 03:59 11:59 19:59 Intake Total 300 50 Output Total 255 405 Balance 45 -355 Weight 99.79 kg Intake & Output: Intake & Output 09/24/22 09/24/22 09/24/22 03:59 11:59 19:59 Intake Total 300 50 Output Total 255 405 Balance 45 -355 Weight 99.79 kg Intake: IV 300 50 Sodium Chloride 0.9% 250 ml @ 250 250 mls/hr IV BOLUS ONE Rx#: [id number] Zosyn 3.375 gm In Dextrose 5% 50 50 in Water 50 ml @ 100 mls/hr IV Q6H [facility] Rx#:[id number] Output: Urine Catheter Amount 255 405 Other: Urine Appearance Hematuria Sediment Suprapubic Cloudy Hematuria Urine Color Light Denise Dark Yellow Suprapubic Light Denise Urine Odor Foul Strong # Bowel Movements 0 # of times incontinent of 1 Bowels OBJ DATA Labs 09/25/22 05:08 09/25/22 05:25 Labs: Abnormal Lab Results 09/24/22 09/24/22 09/24/22 07:44 07:26 05:08 WBC RBC Hgb Hct POC Hct Plt Count Immature Gran % (Auto) Neut % (Auto) Lymph % (Auto) Lymph # (Auto) Dixon # (Auto) Immature Gran # Absolute Neutrophils POC pH 7.32 L POC pCO2 POC pO2 62 L POC HCO3 18.5 L POC ABG Base Excess -8.0 L POC VBG pH POC VBG pCO2 at Temp POC VBG pO2 POC VBG HCO3 POC VBG Total CO2 POC Venous O2 Sat POC VBG Base Excess VBG Lactic Acid Hgb O2 Saturation 90.0 L Carbon Dioxide POC Total CO2 20.0 L POC Anion Gap POC BUN BUN Creatinine POC Creatinine Glucose POC Glucose Calcium POC WB Ioniz Calcium Direct Bilirubin NT-Pro-B Natriuret Pep 8978.0 H Total Protein Albumin Albumin/Globulin Ratio Procalcitonin 6.83 H Urine Appearance Urine Protein Ur Leukocyte Esterase Urine RBC Urine WBC Urine Bacteria Urine Mucus 09/24/22 09/24/22 09/23/22 05:08 05:08 08:13 WBC 19.7 H RBC 3.62 L Hgb 11.1 L Hct 34.6 L POC Hct Plt Count 112 L Immature Gran % (Auto) 1.9 H Neut % (Auto) 92.3 H Lymph % (Auto) 1.7 L Lymph # (Auto) 0.34 L Dixon # (Auto) Immature Gran # 0.37 H Absolute Neutrophils 18.14 H POC pH POC pCO2 32.0 L POC pO2 59 L POC HCO3 17.7 L POC ABG Base Excess -8.0 L POC VBG pH POC VBG pCO2 at Temp POC VBG pO2 POC VBG HCO3 POC VBG Total CO2 POC Venous O2 Sat POC VBG Base Excess VBG Lactic Acid Hgb O2 Saturation 89.0 L Carbon Dioxide 18 L POC Total CO2 19.0 L POC Anion Gap POC BUN BUN 41 H Creatinine 3.0 H POC Creatinine Glucose 106 H POC Glucose Calcium 8.0 L POC WB Ioniz Calcium Direct Bilirubin NT-Pro-B Natriuret Pep Total Protein 5.8 L Albumin 2.6 L Albumin/Globulin Ratio 0.8 L Procalcitonin Urine Appearance Urine Protein Ur Leukocyte Esterase Urine RBC Urine WBC Urine Bacteria Urine Mucus 09/23/22 09/23/22 09/23/22 06:27 06:27 01:38 WBC 23.0 H RBC 3.86 L Hgb 11.7 L Hct 36.2 L POC Hct Plt Count Immature Gran % (Auto) 1.1 H Neut % (Auto) 92.1 H Lymph % (Auto) 2.6 L Lymph # (Auto) 0.59 L Dixon # (Auto) 0.94 H Immature Gran # 0.26 H Absolute Neutrophils 21.21 H POC pH POC pCO2 POC pO2 POC HCO3 POC ABG Base Excess POC VBG pH POC VBG pCO2 at Temp POC VBG pO2 POC VBG HCO3 POC VBG Total CO2 POC Venous O2 Sat POC VBG Base Excess VBG Lactic Acid 3.0 H Hgb O2 Saturation Carbon Dioxide 19 L POC Total CO2 POC Anion Gap POC BUN BUN 30 H Creatinine 2.1 H POC Creatinine Glucose 125 H POC Glucose Calcium 8.0 L POC WB Ioniz Calcium Direct Bilirubin NT-Pro-B Natriuret Pep Total Protein 5.7 L Albumin 2.9 L Albumin/Globulin Ratio Procalcitonin Urine Appearance Urine Protein Ur Leukocyte Esterase Urine RBC Urine WBC Urine Bacteria Urine Mucus 09/22/22 09/22/22 09/22/22 22:58 22:13 22:12 WBC RBC Hgb Hct POC Hct 39.0 L Plt Count Immature Gran % (Auto) Neut % (Auto) Lymph % (Auto) Lymph # (Auto) Dixon # (Auto) Immature Gran # Absolute Neutrophils POC pH POC pCO2 POC pO2 POC HCO3 POC ABG Base Excess POC VBG pH POC VBG pCO2 at Temp POC VBG pO2 POC VBG HCO3 POC VBG Total CO2 POC Venous O2 Sat POC VBG Base Excess VBG Lactic Acid 3.6 H Hgb O2 Saturation Carbon Dioxide POC Total CO2 21.0 L POC Anion Gap POC BUN 30 H BUN Creatinine POC Creatinine 2.3 H Glucose POC Glucose 125 H Calcium POC WB Ioniz Calcium 1.03 L Direct Bilirubin NT-Pro-B Natriuret Pep Total Protein Albumin Albumin/Globulin Ratio Procalcitonin Urine Appearance Hazy A Urine Protein 100 A Ur Leukocyte Esterase 500 A Urine RBC 9 H Urine WBC 74 H Urine Bacteria Many A Urine Mucus Few A 09/22/22 09/22/22 09/22/22 22:05 19:43 19:38 WBC RBC Hgb Hct POC Hct Plt Count Immature Gran % (Auto) Neut % (Auto) Lymph % (Auto) Lymph # (Auto) Dixon # (Auto) Immature Gran # Absolute Neutrophils POC pH POC pCO2 POC pO2 POC HCO3 POC ABG Base Excess POC VBG pH 7.44 H POC VBG pCO2 at Temp 37.1 L 23.6 L POC VBG pO2 41 H POC VBG HCO3 19.4 L 16.2 L POC VBG Total CO2 21.0 L 17.0 L POC Venous O2 Sat 80.0 H POC VBG Base Excess -7.0 L -8.0 L VBG Lactic Acid 3.3 H 4.1 H* Hgb O2 Saturation Carbon Dioxide POC Total CO2 POC Anion Gap POC BUN BUN Creatinine POC Creatinine Glucose POC Glucose Calcium POC WB Ioniz Calcium Direct Bilirubin 0.3 H NT-Pro-B Natriuret Pep Total Protein Albumin Albumin/Globulin Ratio Procalcitonin Urine Appearance Urine Protein Ur Leukocyte Esterase Urine RBC Urine WBC Urine Bacteria Urine Mucus 09/22/22 09/22/22 09/22/22 19:31 19:25 19:25 WBC 27.8 H RBC 4.40 L Hgb 13.4 L Hct POC Hct Plt Count Immature Gran % (Auto) 1.7 H Neut % (Auto) 89.7 H Lymph % (Auto) 2.9 L Lymph # (Auto) 0.81 L Dixon # (Auto) 1.29 H Immature Gran # 0.48 H Absolute Neutrophils 24.94 H POC pH POC pCO2 POC pO2 POC HCO3 POC ABG Base Excess POC VBG pH POC VBG pCO2 at Temp POC VBG pO2 POC VBG HCO3 POC VBG Total CO2 POC Venous O2 Sat POC VBG Base Excess VBG Lactic Acid Hgb O2 Saturation Carbon Dioxide POC Total CO2 19.0 L POC Anion Gap 18.0 H POC BUN 30 H BUN Creatinine POC Creatinine 2.2 H Glucose POC Glucose 150 H Calcium POC WB Ioniz Calcium 1.11 L Direct Bilirubin NT-Pro-B Natriuret Pep Total Protein Albumin Albumin/Globulin Ratio Procalcitonin 14.54 H Urine Appearance Urine Protein Ur Leukocyte Esterase Urine RBC Urine WBC Urine Bacteria Urine Mucus Meds: Medications Acetaminophen (Acetaminophen 325 Mg Tablet) 650 mg PO Q6HP PRN; Protocol PRN Reason: Per Pain Protocol/Fever > 101 Last Admin: 09/23/22 04:14 Dose: 650 mg Albuterol/Ipratropium (Ipratropium/Albuterol 3 Ml Ampul.Neb) 3 ml NEB Q6HRT JYOTI Last Admin: 09/24/22 12:04 Dose: 3 ml Budesonide (Budesonide 0.5 Mg/2 Ml Ampul.Neb) 0.5 mg NEB Q12 [facility] Last Admin: 09/24/22 06:45 Dose: 0.5 mg Calcium/Vitamin D (Calcium W/Vit D3 500 Mg Tablet) 500 mg PO BID [facility] Last Admin: 09/24/22 08:50 Dose: 500 mg Docusate Sodium (Docusate Sodium 100 Mg Capsule) 100 mg PO BID [facility] Last Admin: 09/24/22 08:51 Dose: Not Given Enoxaparin Sodium (Enoxaparin 30 Mg/0.3 Ml Syringe) 30 mg SQ DAILY [facility] Last Admin: 09/24/22 08:50 Dose: 30 mg Piperacillin Sod/Tazobactam (Sod 3.375 gm/ Dextrose) 50 mls @ 100 mls/hr IV Q6H [facility] Last Infusion: 09/24/22 07:33 Dose: Infused Lactulose (Lactulose 20 Gm/30 Ml Oral.Taya) 10 gm PO DAILYP PRN PRN Reason: Constipation Lidocaine (Lidocaine 5 Gm Cream.Top) 5 gm TOPICAL TIDP PRN PRN Reason: Pain Last Admin: 09/23/22 23:41 Dose: 5 gm Methylprednisolone Sodium Succinate (Methylprednisolone Sod Succ 40 Mg/Ml Vial) 40 mg IV Q8 [facility] Last Admin: 09/24/22 09:23 Dose: 40 mg Metoprolol Tartrate (Metoprolol Tartrate 5 Mg/5 Ml Vial) 5 mg IV Q6 [facility] Last Admin: 09/24/22 12:21 Dose: Not Given Ondansetron HCl (Ondansetron 4 Mg/2 Ml Vial) 4 mg IV Q4HP PRN; Protocol PRN Reason: Nausea And Vomiting Oxycodone/Acetaminophen (Oxycodone/Apap 5/325mg Tablet) 1 tab PO Q4HP PRN; Protocol PRN Reason: Per Pain Protocol Last Admin: 09/23/22 23:34 Dose: 1 tab Pantoprazole Sodium (Pantoprazole 40 Mg Tablet) 40 mg PO QAMAC [facility] Last Admin: 09/24/22 08:50 Dose: 40 mg Senna (Sennosides 1 Tablet) 2 tab PO HSP PRN PRN Reason: Constipation Sodium Chloride (0.9 % Sodium Chloride 10 Ml Syringe) 10 ml IV Q8 [facility] Last Admin: 09/24/22 05:00 Dose: 10 ml A/P Narrative A/P Narrative: Assessment: 87-year-old male with a history of hypertension, hyperlipidemia, chronic kidney disease stage III, COPD, bilateral pleural plaques secondary to asbestos, obstructive sleep apnea intolerant of CPAP, GERD, metastatic prostate cancer on Casodex, suprapubic catheter, recurrent UTIs admitted for catheter associated UTI complicated by E. coli bacteremia. Hospitalization was complicated by acute on chronic kidney disease injury, acute hypoxic respiratory failure, bilateral pulmonary infiltrates, left base more than right concerning for aspiration pneumonia, COPD exacerbation, and volume overload. #Catheter associated UTI secondary to E. coli #E. coli bacteremia #Acute hypoxic respiratory failure #Possible aspiration pneumonia #COPD exacerbation #Volume overload, possible CHF exacerbation #Acute on chronic kidney disease stage III injury #Resolved atrial flutter with RVR #Metabolic encephalopathy likely secondary to sepsis #Bladder stones/hematuria #Generalized weakness #Hypertension #Dyslipidemia #GERD #Metastatic prostate cancer on Casodex #Suprapubic catheter #Obstructive sleep apnea, does not tolerate CPAP Plan: -Consolidate antibiotic therapy to cefazolin. Likely 14 days of antibiotic treatment. -Suprapubic urinary catheter replaced this hospitalization. -Oxygen supplementation, wean as able. -Prednisone to complete 5 days of corticosteroid, scheduled DuoNebs for COPD exacerbation. -Incentive spirometry. -Monitor volume status, additional diuretic as needed. -Monitor renal function and electrolytes. -Continue Lopressor 50 mg twice daily, as needed IV Lopressor for atrial fibrillation or atrial flutter with RVR. -Resume home aspirin, simvastatin, omeprazole. -PT following. -court recording monitor. -DVT prophylaxis: Heparin SQ. -CODE STATUS: Full. Time Spent With Patient Time: Total time spent is greater than 50% in coordination of care (as documented) at patient's floor/unit and/or counseling patient: QUALITY VTE Deep Vein Thrombosis/Pulmonary Embolism Present on Admission: No
[2022-09-24] MEDS: VANCOMYCIN PER PHARMACY IV SCH (12:58)
[2022-09-24 15:44] LABS: Blood Urea Nitrogen 45 mg/dL (8-23); Carbon Dioxide 18 mmol/L (22-30); Chloride 102 mmol/L (96-108); Glomerular Filtration Rate 16; Glucose 152 mg/dL (70-105)
[2022-09-24] MEDS ORDERED: METOPROLOL TARTRATE 5 MG/5 ML VIAL IV PRN (17:29)
[2022-09-24] MEDS ORDERED: METOPROLOL TARTRATE 50 MG TABLET PO ONE (17:30)
[2022-09-24] MEDS ORDERED: METOPROLOL TARTRATE 50 MG TABLET ONE (17:38)
[2022-09-24] MEDS ORDERED: METOPROLOL TARTRATE 5 MG/5 ML VIAL IV ONE (17:45)
[2022-09-24] MEDS: oxyCODONE/APAP 5/325MG TABLET PO PRN (20:01)
[2022-09-25] MEDS: IPRATROPIUM/ALBUTEROL 3 ML AMPUL.NEB NEB SCH ×4 (00:58→19:48)
[2022-09-25] MEDS: ONDANSETRON 4 MG/2 ML VIAL IV PRN (05:16)
[2022-09-25] MEDS: 0.9 % SODIUM CHLORIDE 10 ML SYRINGE IV SCH ×3 (05:17→20:00)
[2022-09-25] MEDS: PIPERACILLIN SODIUM/TAZOBACTAM 3.375 GM in DEXTROSE 5% IN WATER 50 ML IV SCH (05:39)
[2022-09-25] MEDS: methylPREDNISolone SOD SUCC 40 MG/ML VIAL IV SCH (05:39)
[2022-09-25 06:19] LABS: Basophils # (Auto) 0.02 K/mcL (0.00-0.30); Basophils % (Auto) 0.1 % (0.0-2.0); Eosinophils # (Auto) 0 K/mcL (0.00-0.70); Eosinophils % (Auto) 0 % (0.0-7.0); Hemoglobin 10.7 g/dL (13.7-17.5); Lymphocytes # (Auto) 0.39 K/mcL (1.50-4.80); Lymphocytes % (Auto) 2.5 % (15.5-49.0); Mean Cell Volume 93.5 fL (80.0-100.0); Mean Corpuscular HGB Conc 32.4 g/dL (31.0-36.0); Mean Platelet Volume 12.3 fL (8.8-12.5); Monocytes # (Auto) 0.62 K/mcL (0.10-0.90); Monocytes % (Auto) 3.9 % (1.0-12.0); Neutrophils % (Auto) 92.7 % (38.0-78.0); Platelet Count 103 K/mcL (140-440); RBC 3.53 M/mcL (4.63-6.08); WBC 15.9 K/mcL (4.5-11.0)
[2022-09-25 06:40] LABS: ALT/SGPT 24 U/L (<40); AST/SGOT 25 U/L (<40); Albumin 2.4 gm/dL (3.2-5.2); Albumin/Globulin Ratio 0.7 (1.0-2.3); Alkaline Phosphatase 66 U/L (39-117); Bilirubin,Total 0.5 mg/dL (0.1-1.0); Blood Urea Nitrogen 54 mg/dL (8-23); Calcium 8.3 mg/dL (8.6-10.4); Carbon Dioxide 18 mmol/L (22-30); Chloride 103 mmol/L (96-108); Globulin 3.6 gm/dL (2.2-3.7); Glomerular Filtration Rate 14; Glucose 136 mg/dL (70-105)
[2022-09-25] MEDS: PANTOPRAZOLE 40 MG TABLET PO SCH (07:04)
[2022-09-25] MEDS: BUDESONIDE 0.5 MG/2 ML AMPUL.NEB NEB SCH ×2 (07:40→19:48)
[2022-09-25] MEDS: METOPROLOL TARTRATE 50 MG TABLET PO SCH ×2 (09:05→19:59)
[2022-09-25] MEDS: ENOXAPARIN 30 MG/0.3 ML SYRINGE SQ SCH (09:05)
[2022-09-25] MEDS: CALCIUM W/VIT D3 500 MG TABLET PO SCH ×2 (09:05→20:02)
[2022-09-25] MEDS: DOCUSATE SODIUM 100 MG CAPSULE PO SCH ×2 (09:06→20:00)
[2022-09-25] MEDS ORDERED: PIPERACILLIN SODIUM/TAZOBACTAM 2.25 GM in DEXTROSE 5% IN WATER 50 ML IV SCH (12:00)
[2022-09-25] MEDS ORDERED: ceFAZolin 1 GM VIAL IV SCH (14:00)
[2022-09-25] MEDS: SIMVASTATIN 10 MG TABLET PO SCH (19:59)
[2022-09-25] MEDS: ceFAZolin 1 GM VIAL IV SCH ×2 (19:59→22:57)
[2022-09-26] MEDS: ACETAMINOPHEN 325 MG TABLET PO PRN ×2 (00:19→14:00)
[2022-09-26] MEDS: LIDOCAINE 5 GM CREAM.TOP TOPICAL PRN ×3 (00:19→22:10)
[2022-09-26] MEDS: IPRATROPIUM/ALBUTEROL 3 ML AMPUL.NEB NEB SCH ×4 (00:27→19:42)
[2022-09-26] MEDS: 0.9 % SODIUM CHLORIDE 10 ML SYRINGE IV SCH ×3 (05:22→20:29)
[2022-09-26] MEDS: OMEPRAZOLE 20 MG CAPSULE PO SCH (06:57)
[2022-09-26 06:58] LABS: Basophils # (Auto) 0.02 K/mcL (0.00-0.30); Basophils % (Auto) 0.1 % (0.0-2.0); Eosinophils # (Auto) 0 K/mcL (0.00-0.70); Eosinophils % (Auto) 0 % (0.0-7.0); Hematocrit 31.8 % (40.1-51.0); Hemoglobin 10.6 g/dL (13.7-17.5); Lymphocytes # (Auto) 0.46 K/mcL (1.50-4.80); Lymphocytes % (Auto) 2.7 % (15.5-49.0); Mean Cell Volume 91.4 fL (80.0-100.0); Mean Corpuscular HGB Conc 33.3 g/dL (31.0-36.0); Mean Platelet Volume 12.1 fL (8.8-12.5); Monocytes # (Auto) 0.74 K/mcL (0.10-0.90); Monocytes % (Auto) 4.3 % (1.0-12.0); Neutrophils % (Auto) 90.5 % (38.0-78.0); Platelet Count 107 K/mcL (140-440); RBC 3.48 M/mcL (4.63-6.08); WBC 17.3 K/mcL (4.5-11.0)
[2022-09-26 07:08] LABS: ALT/SGPT 24 U/L (<40); AST/SGOT 19 U/L (<40); Albumin 2.6 gm/dL (3.2-5.2); Albumin/Globulin Ratio 0.8 (1.0-2.3); Alkaline Phosphatase 66 U/L (39-117); Bilirubin,Total 0.3 mg/dL (0.1-1.0); Blood Urea Nitrogen 71 mg/dL (8-23); Calcium 8.3 mg/dL (8.6-10.4); Carbon Dioxide 17 mmol/L (22-30); Chloride 104 mmol/L (96-108); Globulin 3.2 gm/dL (2.2-3.7); Glomerular Filtration Rate 14; Glucose 150 mg/dL (70-105)
[2022-09-26] MEDS: BUDESONIDE 0.5 MG/2 ML AMPUL.NEB NEB SCH ×2 (07:10→19:42)
[2022-09-26] MEDS ORDERED: predniSONE 20 MG TABLET PO SCH (08:00)
[2022-09-26] MEDS: ASPIRIN 81 MG TAB.CHEW PO SCH (08:13)
[2022-09-26] MEDS: METOPROLOL TARTRATE 50 MG TABLET PO SCH ×2 (08:14→20:28)
[2022-09-26] MEDS: HEPARIN 5,000 UNIT/ML VIAL SQ SCH ×2 (08:14→20:28)
[2022-09-26] MEDS: CALCIUM W/VIT D3 500 MG TABLET PO SCH ×2 (08:14→20:29)
[2022-09-26] MEDS: ceFAZolin 1 GM VIAL IV SCH ×2 (08:40→20:28)
[2022-09-26] MEDS: DOCUSATE SODIUM 100 MG CAPSULE PO SCH ×2 (08:40→20:29)
--- NOTE | 2022-09-26 11:43 | XRay Report ---
CLINICAL INFORMATION: abdominal distention COMPARISON: 09/23/2022 FINDINGS: Stool gas pattern is normal. There is no free air, soft tissue mass or pathologic calcification. Moderate consolidated atelectasis and effusion in the left lower lobe region appreciated IMPRESSION: No intra-abdominal abnormality. Moderate atelectasis and effusion in the left lung base. Interpreted and Authenticated by: Daniel Bateman 09/26/22
[2022-09-26] MEDS ORDERED: FUROSEMIDE 100 MG/10 ML VIAL IV ONE (11:47)
[2022-09-26 14:08] LABS: Creatinine, Spot Urine 72.8 mg/dL (39.0-259.0); Pro:Crea Ratio 0.45 (<0.20)
--- NOTE | 2022-09-26 14:24 | Internal Med Progress Note ---
SUBJECTIVE Subjective Patient information: Note initiated : 09/26/22 at 2:23 pm Service Date, if different from initiated Date: [] Patient: Lalit Moyer a 87 y/o M admitted on 09/23/22. Chief Complaint: [] Interval history: Mr. 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 He went to his bed in normal state of health but woke up around 1 AM with an episode of vomiting. He had another couple of episodes of vomiting through the day and was feeling very weak and tired. Throughout the day family noted that p atient was somewhat lethargic, confused and stumbling over words. Patient felt some pressure and thought his suprapubic catheter was not draining however noted blood in the catheter. His p.o. intake was low he was not eating and was nauseous. Patient follows up with Dr. Obregon and his last visit was about a week ago when he had his suprapubic catheter changed. Patient denies fever, chills, abdominal pain, diarrhea, constipation, difficulty breathing, cardiac chest pain, heart palpitations, hematemesis, melena, hematochezia. On presentation patient was tachypneic with respiratory rate 31, tachycardia heart rate 113, he was hypoxic of 84% and required 2 L nasal cannula oxygen. Labs were remarkable for WBCs 27,000, hemoglobin 13.4. Lactic acid 4.1. Procalcitonin elevated at 14. Normal electrolytes. Creatinine 2.3 consistent with YEIMY. UA positive for leukocyte Estrace, RBC, WBC, bacteria. CT abdomen and pelvis showed some nonspecific inflammatory changes around left kidney and Gerota fascia extending into the left side of the pelvis. This may be secondary to passage of stone or known inflammatory process. Multiple bladder calculi were noted. Chest x-ray concerning for pneumonia formal read is pending. EKG showed sinus tachycardia ventricular rate 1122 bpm, some PVCs, no acute ST-T wave changes. 7/8. Overall feels well bit better. Reports always have some labored breathing from his COPD. Still hypotensive with blood pressure of 87/60, on IV fluids. Fluctuating between 4 and 8 L nasal cannula oxygen. While I was in the room I weaned it down to 3 L and he was still around 92%. Leukocytosis improved to 23,000 from 27, hemoglobin down to 11.7 from 13.4, but some element of hemodilution. Lactic acidosis cleared and down to 1.8 from 3.0 previously. Cr eatinine down to 2.1 from 2.3 yesterday. Chest x-ray from 09/23 reviewed. 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 CTA chest was obtained this morning and it showed bilateral pulmonary infiltrates, left base more than right. This could be pneumonia. Patient has moderate emphysema. 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 09/24. Patient appears tired, somewhat tachypneic, smiling and reports no issues. Patient became hypotensive last evening after receiving metoprolol for his tachycardia. He was given 250 cc bolus and blood pressure improved. Creatinine increased to 3.0 from 2.1 yesterday could be secondary to episode of hypotension. He has history of CKD stage III. Reviewed I's and O's. Patient is net positive over 4 L since admission. Echo from February 2020 reviewed. Preserved EF 55-60%, no diastolic dysfunction, no significant valvular dysfunction. Patient BNP is elevated at 8978. Chest x-ray obtained is showing pulmonary edema. Procalcitonin is down to 6 from 14 couple days ago. Blood culture from 09/22 growing gram-negative bacilli. Urine culture pending. 09/25. Yesterday evening, the patient went into atrial flutter with rapid ventricular response. Started oral Lopressor and IV Lopressor as needed. The patient converted back to normal sinus rhythm. After that, vitals remained essentially unchanged overnight, the patient continues to require 3 L/min oxygen supplementation. Urine culture grew pansensitive E. coli, blood culture grew pansensitive E. coli. Antibiotics consolidated to cefazolin. Echo showed LVEF 55 to 60%, unable to accurately assess left ventricular diastolic function due to abnormal rhythm, normal right ventricular size and function. Estimated pulmonary artery pressure of 52 mmHg, trace MR and AI. White blood cell count trending down however still elevated at 15.9. Creatinine increased from 3.3 yesterday to 3.6 today. Holding additional Lasix doses and monitoring volume status. Suprapubic Larsen catheter replaced today. 09/26. No significant events reported overnight, the patient continues to requir e 1.5 to 2 L/min nasal cannula oxygen supplementation. Upon examination, the patient's volume status is increasing now with bilateral pitting edema up to mid shins. Creatinine also increasing. White blood cell count increased slightly, procalcitonin level downtrending. Patient also has abdominal distention today, tympanic and mildly tender. 1 view abdominal x-ray did not show any acute changes. Started Lasix 60 mg IV twice daily. Discontinued prednisone as this may be contributing to fluid retention. Physical exam Head: Atraumatic, normal inspection. Eyes: normal appearance, no scleral icterus. Neck: full ROM Respiratory: 1.5 L/min oxygen supplementation, bilateral crackles Cardiovascular: normal rate and rhythm, S1, S2. GI/Abdominal: soft, nontender, no guarding. : Suprapubic urinary catheter. Extremities: full range of motion, nontender. Neurological: CN II-XII intact, intact motor, intact sensation. Psychiatric: Impaired cognition. Skin: warm, normal color Constitutional Vitals: Vital Signs Temp Pulse Resp BP Pulse Ox O2 Del Method O2 Flow Rate 97.2 F 85 18 122/87 94 Nasal Cannula 2 09/26/22 14:00 09/26/22 14:01 09/26/22 14:13 09/26/22 14:01 09/26/22 14:13 09/26/22 14:13 09/26/22 14:13 Period Temp Pulse Resp BP Sys/Morales Pulse Ox O2 Del Method O2 Flow Rate Last 24 Hr 97.0 F-97.4 F 72-99 15-30 93-138/55-88 89-98 Nasal Cannula- Room Air 1.5-3 Intake and Output 09/26/22 09/26/22 09/26/22 03:59 11:59 19:59 Intake Total 480 880 440 Output Total 540 935 Balance -60 -55 440 Weight 100.698 kg Intake & Output: Intake & Output 09/26/22 09/26/22 09/26/22 03:59 11:59 19:59 Intake Total 480 880 440 Output Total 540 935 Balance -60 -55 440 Weight 100.698 kg Intake: Nourishment/Supplement quantity 240 (ml) Oral 480 640 440 Output: Urine Catheter Amount 540 935 Other: Meal Breakfast Lunch Percent of Meal Consumed 100% 50% Feeding Ability Assist with Tray Set Up Assist with Tray Set Up Nourishment/Supplement name Ensure Urine Appearance Clear Clear Suprapubic Sediment Urine Color Dark Yellow Dark Denise Suprapubic Dark Yellow Urine Odor Strong Suprapubic Strong Stool Size Smear Small Stool Consistency Loose Liquid Watery # of times incontinent of 1 1 Bowels OBJ DATA Labs 09/26/22 05:21 09/26/22 05:22 Labs: Abnormal Lab Results 09/26/22 09/26/22 09/26/22 11:35 05:22 05:22 WBC RBC Hgb Hct Plt Count Immature Gran % (Auto) Neut % (Auto) Lymph % (Auto) Lymph # (Auto) Immature Gran # Absolute Neutrophils POC pH POC pO2 POC HCO3 POC Total CO2 POC ABG Base Excess Hgb O2 Saturation Carbon Dioxide 17 L BUN 71 H Creatinine 3.7 H Glucose 150 H Calcium 8.3 L NT-Pro-B Natriuret Pep Total Protein 5.8 L Albumin 2.6 L Albumin/Globulin Ratio 0.8 L Procalcitonin 3.21 H [place] Prot/Creat Ratio 0.45 H 09/26/22 09/25/22 09/25/22 05:21 05:25 05:08 WBC 17.3 H 15.9 H RBC 3.48 L 3.53 L Hgb 10.6 L 10.7 L Hct 31.8 L 33.0 L Plt Count 107 L 103 L Immature Gran % (Auto) 2.4 H 0.8 H Neut % (Auto) 90.5 H 92.7 H Lymph % (Auto) 2.7 L 2.5 L Lymph # (Auto) 0.46 L 0.39 L Immature Gran # 0.42 H 0.12 H Absolute Neutrophils 15.67 H 14.70 H POC pH POC pO2 POC HCO3 POC Total CO2 POC ABG Base Excess Hgb O2 Saturation Carbon Dioxide 18 L BUN 54 H Creatinine 3.6 H Glucose 136 H Calcium 8.3 L NT-Pro-B Natriuret Pep Total Protein Albumin 2.4 L Albumin/Globulin Ratio 0.7 L Procalcitonin U [place] Prot/Creat Ratio 09/24/22 09/24/22 09/24/22 15:00 07:44 07:26 WBC RBC Hgb Hct Plt Count Immature Gran % (Auto) Neut % (Auto) Lymph % (Auto) Lymph # (Auto) Immature Gran # Absolute Neutrophils POC pH 7.32 L POC pO2 62 L POC HCO3 18.5 L POC Total CO2 20.0 L POC ABG Base Excess -8.0 L Hgb O2 Saturation 90.0 L Carbon Dioxide 18 L BUN 45 H Creatinine 3.3 H Glucose 152 H Calcium 8.0 L NT-Pro-B Natriuret Pep 8978.0 H Total Protein Albumin Albumin/Globulin Ratio Procalcitonin U [place] Prot/Creat Ratio 09/24/22 09/24/22 09/24/22 05:08 05:08 05:08 WBC 19.7 H RBC 3.62 L Hgb 11.1 L Hct 34.6 L Plt Count 112 L Immature Gran % (Auto) 1.9 H Neut % (Auto) 92.3 H Lymph % (Auto) 1.7 L Lymph # (Auto) 0.34 L Immature Gran # 0.37 H Absolute Neutrophils 18.14 H POC pH POC pO2 POC HCO3 POC Total CO2 POC ABG Base Excess Hgb O2 Saturation Carbon Dioxide 18 L BUN 41 H Creatinine 3.0 H Glucose 106 H Calcium 8.0 L NT-Pro-B Natriuret Pep Total Protein 5.8 L Albumin 2.6 L Albumin/Globulin Ratio 0.8 L Procalcitonin 6.83 H [place] Prot/Creat Ratio Meds: Medications Acetaminophen (Acetaminophen 325 Mg Tablet) 650 mg PO Q6HP PRN; Protocol PRN Reason: Per Pain Protocol/Fever > 101 Last Admin: 09/26/22 14:00 Dose: 650 mg Albuterol/Ipratropium (Ipratropium/Albuterol 3 Ml Ampul.Neb) 3 ml NEB Q6HRT [facility], [facility]1983 Last Admin: 09/26/22 07:10 Dose: 3 ml Aspirin (Aspirin 81 Mg Tab.Chew) 81 mg PO DAILY [facility], [facility]1983 Last Admin: 09/26/22 08:13 Dose: 81 mg Budesonide (Budesonide 0.5 Mg/2 Ml Ampul.Neb) 0.5 mg NEB Q12 [facility], [facility]1983 Last Admin: 09/26/22 07:10 Dose: 0.5 mg Calcium/Vitamin D (Calcium W/Vit D3 500 Mg Tablet) 500 mg PO BID [facility], [facility]1983 Last Admin: 09/26/22 08:14 Dose: 500 mg Cefazolin Sodium (Cefazolin 1 Gm Vial) 1 gm IV Q12H [facility], [facility]1983; Protocol Last Admin: 09/26/22 08:40 Dose: 1 gm Docusate Sodium (Docusate Sodium 100 Mg Capsule) 100 mg PO BID [facility]1983 Last Admin: 09/26/22 08:40 Dose: Not Given Furosemide (Furosemide 100 Mg/10 Ml Vial) 60 mg IV BIDD [facility], [facility]1983 Heparin Sodium (Porcine) (Heparin 5,000 Unit/Ml Vial) 5,000 unit SQ Q12 [facility]1983 Last Admin: 09/26/22 08:14 Dose: 5,000 unit Lactulose (Lactulose 20 Gm/30 Ml Oral.Taya) 10 gm PO DAILYP PRN PRN Reason: Constipation Lidocaine (Lidocaine 5 Gm Cream.Top) 5 gm TOPICAL TIDP PRN PRN Reason: Pain Last Admin: 09/26/22 14:00 Dose: 5 gm Metoprolol Tartrate (Metoprolol Tartrate 50 Mg Tablet) 50 mg PO BID [facility] Last Admin: 09/26/22 08:14 Dose: 50 mg Metoprolol Tartrate (Metoprolol Tartrate 5 Mg/5 Ml Vial) 5 mg IV Q4HP PRN PRN Reason: Tachyarrhythmias Last Admin: 09/24/22 17:45 Dose: 2 mg Omeprazole (Omeprazole 20 Mg Capsule) 20 mg PO ACB [facility] Last Admin: 09/26/22 06:57 Dose: 20 mg Ondansetron HCl (Ondansetron 4 Mg/2 Ml Vial) 4 mg IV Q4HP PRN; Protocol PRN Reason: Nausea And Vomiting Last Admin: 09/25/22 05:16 Dose: 4 mg Prednisone (Prednisone 20 Mg Tablet) 40 mg PO [facility] Stop: 09/28/22 08:01 Last Admin: 09/26/22 08:14 Dose: 40 mg Senna (Sennosides 1 Tablet) 2 tab PO [facility] PRN PRN Reason: Constipation Simvastatin (Simvastatin 10 Mg Tablet) 10 mg PO [facility] Last Admin: 09/25/22 19:59 Dose: 10 mg Sodium Chloride (0.9 % Sodium Chloride 10 Ml Syringe) 10 ml IV Q8 [facility] Last Admin: 09/26/22 13:14 Dose: 10 ml A/P Narrative A/P Narrative: Assessment: 87-year-old male with a history of hypertension, hyperlipidemia, chronic kidney disease stage III, COPD, bilateral pleural plaques secondary to asbestos, obstructive sleep apnea intolerant of CPAP, GERD, metastatic prostate cancer on Casodex, suprapubic catheter, recurrent UTIs admitted for catheter associated UTI complicated by E. coli bacteremia. Hospitalization was compl icated by acute on chronic kidney disease injury, acute hypoxic respiratory failure, bilateral pulmonary infiltrates, left base more than right concerning for aspiration pneumonia, COPD exacerbation, and volume overload. #Catheter associated UTI/pyelonephritis secondary to E. coli #E. coli bacteremia secondary to UTI #Acute hypoxic respiratory failure #Acute on chronic diastolic heart failure #Possible aspiration pneumonia #Acute on chronic kidney disease stage III injury #Resolved COPD exacerbation #Resolved atrial flutter with RVR #Metabolic encephalopathy likely secondary to sepsis #Bladder stones #Sigmoid colon stricture #Generalized weakness #Hypertension #Dyslipidemia #GERD #Metastatic prostate cancer on Casodex #Suprapubic catheter #Obstructive sleep apnea, does not tolerate CPAP Plan: -Continue cefazolin, anticipate 14 days of antibiotic treatment for gram- negative bacteremia. -Suprapubic urinary catheter replaced this hospitalization. -Oxygen supplementation, wean as able. -Discontinue prednisone as this may contribute to fluid retention. -Continue scheduled DuoNebs. -Incentive spirometry. -Lasix 60 mg IV twice daily, monitor volume status. -Monitor renal function and electrolytes. -Urine protein creatinine ratio. -Continue Lopressor 50 mg twice daily, as needed IV Lopressor for atrial fibrillation or atrial flutter with RVR. -Continue home aspirin, simvastatin, omeprazole. -PT following. -monitor tech. -DVT prophylaxis: Heparin SQ. -CODE STATUS: Full. Time Spent With Patient Time: Total time spent is greater than 50% in coordination of care (as documented) at patient's floor/unit and/or counseling patient: QUALITY VTE Deep Vein Thrombosis/Pulmonary Embolism Present on Admission: No
[2022-09-26] MEDS ORDERED: ACETAMINOPHEN 1,000 MG/100 ML BAG IV PRN (14:27)
[2022-09-26] MEDS: FUROSEMIDE 100 MG/10 ML VIAL IV SCH (15:33)
[2022-09-26] MEDS: LIDOCAINE PATCH TOPICAL SCH (15:40)
[2022-09-26] MEDS: oxyCODONE IR 5 MG TABLET PO PRN (20:27)
[2022-09-26] MEDS: SIMVASTATIN 10 MG TABLET PO SCH (20:28)
[2022-09-27] MEDS: IPRATROPIUM/ALBUTEROL 3 ML AMPUL.NEB NEB SCH ×4 (00:22→19:30)
[2022-09-27] MEDS: 0.9 % SODIUM CHLORIDE 10 ML SYRINGE IV SCH ×3 (05:25→21:54)
[2022-09-27 06:58] LABS: Basophils # (Auto) 0.04 K/mcL (0.00-0.30); Basophils % (Auto) 0.3 % (0.0-2.0); Eosinophils # (Auto) 0.02 K/mcL (0.00-0.70); Eosinophils % (Auto) 0.1 % (0.0-7.0); Hematocrit 33.5 % (40.1-51.0); Hemoglobin 10.9 g/dL (13.7-17.5); Lymphocytes # (Auto) 0.65 K/mcL (1.50-4.80); Lymphocytes % (Auto) 4.3 % (15.5-49.0); Mean Cell Volume 91.8 fL (80.0-100.0); Mean Corpuscular HGB Conc 32.5 g/dL (31.0-36.0); Monocytes # (Auto) 0.96 K/mcL (0.10-0.90); Monocytes % (Auto) 6.4 % (1.0-12.0); Neutrophils % (Auto) 84.1 % (38.0-78.0); Platelet Count 122 K/mcL (140-440); RBC 3.65 M/mcL (4.63-6.08); Red Cell Distribution Width 14.2 % (11.5-14.5)
[2022-09-27] MEDS: BUDESONIDE 0.5 MG/2 ML AMPUL.NEB NEB SCH ×2 (07:10→19:30)
[2022-09-27 08:01] LABS: ALT/SGPT 25 U/L (<40); AST/SGOT 20 U/L (<40); Albumin 2.4 gm/dL (3.2-5.2); Albumin/Globulin Ratio 0.6 (1.0-2.3); Alkaline Phosphatase 70 U/L (39-117); Bilirubin,Total 0.3 mg/dL (0.1-1.0); Blood Urea Nitrogen 88 mg/dL (8-23); Calcium 8.8 mg/dL (8.6-10.4); Carbon Dioxide 21 mmol/L (22-30); Chloride 101 mmol/L (96-108); Globulin 3.7 gm/dL (2.2-3.7); Glomerular Filtration Rate 14; Glucose 137 mg/dL (70-105)
[2022-09-27] MEDS: OMEPRAZOLE 20 MG CAPSULE PO SCH (08:17)
[2022-09-27] MEDS: FUROSEMIDE 100 MG/10 ML VIAL IV SCH ×2 (09:10→16:14)
[2022-09-27] MEDS: ceFAZolin 1 GM VIAL IV SCH ×2 (09:10→21:52)
[2022-09-27] MEDS: METOPROLOL TARTRATE 50 MG TABLET PO SCH ×2 (09:11→21:53)
[2022-09-27] MEDS: CALCIUM W/VIT D3 500 MG TABLET PO SCH ×2 (09:11→21:53)
[2022-09-27] MEDS: HEPARIN 5,000 UNIT/ML VIAL SQ SCH ×2 (09:11→21:52)
[2022-09-27] MEDS: ASPIRIN 81 MG TAB.CHEW PO SCH (09:11)
[2022-09-27] MEDS: DOCUSATE SODIUM 100 MG CAPSULE PO SCH ×2 (09:11→21:52)
[2022-09-27] MEDS: LIDOCAINE PATCH TOPICAL SCH (11:23)
--- NOTE | 2022-09-27 15:31 | EKG ---
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
--- NOTE | 2022-09-27 15:38 | EKG ---
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
--- NOTE | 2022-09-27 15:42 | EKG ---
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
--- NOTE | 2022-09-27 16:11 | Internal Med Progress Note ---
SUBJECTIVE Subjective Patient information: Note initiated : 09/27/22 at 4:10 pm Service Date, if different from initiated Date: [] Patient: Lalit Moyer a 87 y/o M admitted on 09/23/22. Chief Complaint: [] Interval history: Mr. 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 He went to his bed in normal state of health but woke up around 1 AM with an episode of vomiting. He had another couple of episodes of vomiting through the day and was feeling very weak and tired. Throughout the day family noted that p atient was somewhat lethargic, confused and stumbling over words. Patient felt some pressure and thought his suprapubic catheter was not draining however noted blood in the catheter. His p.o. intake was low he was not eating and was nauseous. Patient follows up with Dr. Obregon and his last visit was about a week ago when he had his suprapubic catheter changed. Patient denies fever, chills, abdominal pain, diarrhea, constipation, difficulty breathing, cardiac chest pain, heart palpitations, hematemesis, melena, hematochezia. On presentation patient was tachypneic with respiratory rate 31, tachycardia heart rate 113, he was hypoxic of 84% and required 2 L nasal cannula oxygen. Labs were remarkable for WBCs 27,000, hemoglobin 13.4. Lactic acid 4.1. Procalcitonin elevated at 14. Normal electrolytes. Creatinine 2.3 consistent with YEIMY. UA positive for leukocyte Estrace, RBC, WBC, bacteria. CT abdomen and pelvis showed some nonspecific inflammatory changes around left kidney and Gerota fascia extending into the left side of the pelvis. This may be secondary to passage of stone or known inflammatory process. Multiple bladder calculi were noted. Chest x-ray concerning for pneumonia formal read is pending. EKG showed sinus tachycardia ventricular rate 1122 bpm, some PVCs, no acute ST-T wave changes. 7/8. Overall feels well bit better. Reports always have some labored breathing from his COPD. Still hypotensive with blood pressure of 87/60, on IV fluids. Fluctuating between 4 and 8 L nasal cannula oxygen. While I was in the room I weaned it down to 3 L and he was still around 92%. Leukocytosis improved to 23,000 from 27, hemoglobin down to 11.7 from 13.4, but some element of hemodilution. Lactic acidosis cleared and down to 1.8 from 3.0 previously. Cr eatinine down to 2.1 from 2.3 yesterday. Chest x-ray from 09/23 reviewed. 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 CTA chest was obtained this morning and it showed bilateral pulmonary infiltrates, left base more than right. This could be pneumonia. Patient has moderate emphysema. 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 09/24. Patient appears tired, somewhat tachypneic, smiling and reports no issues. Patient became hypotensive last evening after receiving metoprolol for his tachycardia. He was given 250 cc bolus and blood pressure improved. Creatinine increased to 3.0 from 2.1 yesterday could be secondary to episode of hypotension. He has history of CKD stage III. Reviewed I's and O's. Patient is net positive over 4 L since admission. Echo from February 2020 reviewed. Preserved EF 55-60%, no diastolic dysfunction, no significant valvular dysfunction. Patient BNP is elevated at 8978. Chest x-ray obtained is showing pulmonary edema. Procalcitonin is down to 6 from 14 couple days ago. Blood culture from 09/22 growing gram-negative bacilli. Urine culture pending. 09/25. Yesterday evening, the patient went into atrial flutter with rapid ventricular response. Started oral Lopressor and IV Lopressor as needed. The patient converted back to normal sinus rhythm. After that, vitals remained essentially unchanged overnight, the patient continues to require 3 L/min oxygen supplementation. Urine culture grew pansensitive E. coli, blood culture grew pansensitive E. coli. Antibiotics consolidated to cefazolin. Echo showed LVEF 55 to 60%, unable to accurately assess left ventricular diastolic function due to abnormal rhythm, normal right ventricular size and function. Estimated pulmonary artery pressure of 52 mmHg, trace MR and AI. White blood cell count trending down however still elevated at 15.9. Creatinine increased from 3.3 yesterday to 3.6 today. Holding additional Lasix doses and monitoring volume status. Suprapubic Larsen catheter replaced today. 09/26. No significant events reported overnight, the patient continues to requir e 1.5 to 2 L/min nasal cannula oxygen supplementation. Upon examination, the patient's volume status is increasing now with bilateral pitting edema up to mid shins. Creatinine also increasing. White blood cell count increased slightly, procalcitonin level downtrending. Patient also has abdominal distention today, tympanic and mildly tender. 1 view abdominal x-ray did not show any acute changes. Started Lasix 60 mg IV twice daily. Discontinued prednisone as this may be contributing to fluid retention. 09/27. No significant events overnight, vitals unchanged, continues on 1 to 2 L/min oxygen supplementation. Leukocytosis improving. Renal function the same as yesterday. Urine protein creatinine mildly elevated at 0.45. Mental status has improved. Creatinine appears to have plateaued. Discussed CODE STATUS with the patient, his and child at bedside. The patient said he wished to be DNR DNI. CODE STATUS changed to DNR/DNI. Continue Lasix 60 mg IV twice daily today. Physical exam Head: Atraumatic, normal inspection. Eyes: normal appearance, no scleral icterus. Neck: full ROM Respiratory: 1.5 L/min oxygen supplementation, bilateral crackles Cardiovascular: normal rate and rhythm, S1, S2. GI/Abdominal: soft, nontender, no guarding. : Suprapubic urinary catheter. Extremities: full range of motion, nontender. Neurological: CN II-XII intact, intact motor, intact sensation. Psychiatric: Impaired cognition. Skin: warm, normal color Constitutional Vitals: Vital Signs Temp Pulse Resp BP Pulse Ox O2 Del Method O2 Flow Rate 98.4 F 77 20 121/66 90 Nasal Cannula 2 09/27/22 16:00 09/27/22 16:00 09/27/22 16:00 09/27/22 16:00 09/27/22 16:09/27/22 16:09/27/22 16:00 Period Temp Pulse Resp BP Sys/Morales Pulse Ox O2 Del Method O2 Flow Rate Last 24 Hr 96.6 F-98.4 F 70-88 15-21 106-141/55-86 87-96 Nasal Cannula- Room Air 1-3 Intake and Output 09/27/22 09/27/2209/27/23 03:59 11:59 19:59 Intake Total 100 1050 Output Total 2960 850 925 Balance -2860 200 -925 Weight 100.199 kg Intake & Output: Intake & Output 09/27/22 09/27/22 09/27/22 03:59 11:59 19:59 Intake Total 100 1050 Output Total 2960 850 925 Balance -2860 200 -925 Weight 100.199 kg Intake: Nourishment/Supplement quantity 240 (ml) IV 100 Oral 810 Output: Urine Catheter Amount 2960 850 925 Other: Meal Breakfast Percent of Meal Consumed 100% Feeding Ability Assist with Tray Set Up Nourishment/Supplement name Ensure Urine Appearance Clear Sediment Sediment Suprapubic Clear Clear Sediment Sediment Urine Color Yellow Yellow Yellow Pale Suprapubic Pale Pale Stool Size Smear Stool Consistency Watery # of times incontinent of 1 Bowels OBJ DATA Labs 09/27/22 05:54 09/27/22 05:54 Labs: Abnormal Lab Results 09/27/22 09/27/22 09/26/22 05:54 05:54 11:35 WBC 15.0 H RBC 3.65 L Hgb 10.9 L Hct 33.5 L Plt Count 122 L Immature Gran % (Auto) 4.8 H Neut % (Auto) 84.1 H Lymph % (Auto) 4.3 L Lymph # (Auto) 0.65 L Nance # (Auto) 0.96 H Immature Gran # 0.72 H Absolute Neutrophils 12.61 H Carbon Dioxide 21 L BUN 88 H Creatinine 3.7 H Glucose 137 H Calcium Total Protein Albumin 2.4 L Albumin/Globulin Ratio 0.6 L Procalcitonin [place] Prot/Creat Ratio 0.45 H 09/26/22 09/26/22 09/26/22 05:22 05:22 05:21 WBC 17.3 H RBC 3.48 L Hgb 10.6 L Hct 31.8 L Plt Count 107 L Immature Gran % (Auto) 2.4 H Neut % (Auto) 90.5 H Lymph % (Auto) 2.7 L Lymph # (Auto) 0.46 L Nance # (Auto) Immature Gran # 0.42 H Absolute Neutrophils 15.67 H Carbon Dioxide 17 L BUN 71 H Creatinine 3.7 H Glucose 150 H Calcium 8.3 L Total Protein 5.8 L Albumin 2.6 L Albumin/Globulin Ratio 0.8 L Procalcitonin 3.21 H [place] Prot/Creat Ratio 09/25/22 09/25/22 05:25 05:08 WBC 15.9 H RBC 3.53 L Hgb 10.7 L Hct 33.0 L Plt Count 103 L Immature Gran % (Auto) 0.8 H Neut % (Auto) 92.7 H Lymph % (Auto) 2.5 L Lymph # (Auto) 0.39 L Nance # (Auto) Immature Gran # 0.12 H Absolute Neutrophils 14.70 H Carbon Dioxide 18 L BUN 54 H Creatinine 3.6 H Glucose 136 H Calcium 8.3 L Total Protein Albumin 2.4 L Albumin/Globulin Ratio 0.7 L Procalcitonin [place] Prot/Creat Ratio Meds: Medications Albuterol/Ipratropium (Ipratropium/Albuterol 3 Ml Ampul.Neb) 3 ml NEB Q6HRT [facility] Last Admin: 09/27/22 12:29 Dose: 3 ml Aspirin (Aspirin 81 Mg Tab.Chew) 81 mg PO DAILY [facility] Last Admin: 09/27/22 09:11 Dose: 81 mg Budesonide (Budesonide 0.5 Mg/2 Ml Ampul.Neb) 0.5 mg NEB Q12 [facility] Last Admin: 09/27/22 07:10 Dose: 0.5 mg Calcium/Vitamin D (Calcium W/Vit D3 500 Mg Tablet) 500 mg PO BID [facility] Last Admin: 09/27/22 09:11 Dose: 500 mg Cefazolin Sodium (Cefazolin 1 Gm Vial) 1 gm IV Q12H JYOTI; Protocol Last Admin: 09/27/22 09:10 Dose: 1 gm Docusate Sodium (Docusate Sodium 100 Mg Capsule) 100 mg PO BID [facility] Last Admin: 09/27/22 09:11 Dose: 100 mg Furosemide (Furosemide 100 Mg/10 Ml Vial) 60 mg IV BIDD [facility] Last Admin: 09/27/22 09:10 Dose: 60 mg Heparin Sodium (Porcine) (Heparin 5,000 Unit/Ml Vial) 5,000 unit SQ Q12 [facility] Last Admin: 09/27/22 09:11 Dose: 5,000 unit Acetaminophen (Ofirmev) 1,000 mg in 100 mls @ 200 mls/hr IV TIDP PRN; Protocol PRN Reason: pain Last Infusion: 09/26/22 22:00 Dose: Infused Lactulose (Lactulose 20 Gm/30 Ml Oral.Taya) 10 gm PO DAILYP PRN PRN Reason: Constipation Lidocaine (Lidocaine 5 Gm Cream.Top) 5 gm TOPICAL TIDP PRN PRN Reason: Pain Last Admin: 09/26/22 22:10 Dose: 5 gm Lidocaine (Lidocaine Patch) 1 patch TOPICAL DAILY@1000 [facility] Last Admin: 09/27/22 11:23 Dose: 1 patch Metoprolol Tartrate (Metoprolol Tartrate 50 Mg Tablet) 50 mg PO BID [facility] Last Admin: 09/27/22 09:11 Dose: 50 mg Metoprolol Tartrate (Metoprolol Tartrate 5 Mg/5 Ml Vial) 5 mg IV Q4HP PRN PRN Reason: Tachyarrhythmias Last Admin: 09/24/22 17:45 Dose: 2 mg Omeprazole (Omeprazole 20 Mg Capsule) 20 mg PO ACB [facility] Last Admin: 09/27/22 08:17 Dose: 20 mg Ondansetron HCl (Ondansetron 4 Mg/2 Ml Vial) 4 mg IV Q4HP PRN; Protocol PRN Reason: Nausea And Vomiting Last Admin: 09/25/22 05:16 Dose: 4 mg Oxycodone HCl (Oxycodone Ir 5 Mg Tablet) 5 mg PO Q4HP PRN; Protocol PRN Reason: Per Pain Protocol Last Admin: 09/26/22 20:27 Dose: 5 mg Senna (Sennosides 1 Tablet) 2 tab PO HSP PRN PRN Reason: Constipation Simvastatin (Simvastatin 10 Mg Tablet) 10 mg PO HS [facility] Last Admin: 09/26/22 20:28 Dose: 10 mg Sodium Chloride (0.9 % Sodium Chloride 10 Ml Syringe) 10 ml IV Q8 [facility] Last Admin: 09/27/22 13:12 Dose: 10 ml A/P Narrative A/P Narrative: Assessment: 87-year-old male with a history of hypertension, hyperlipidemia, chronic kidney disease stage III, COPD, bilateral pleural plaques secondary to asbestos, obstructive sleep apnea intolerant of CPAP, GERD, metastatic prostate cancer on Casodex, suprapubic catheter, recurrent UTIs admitted for catheter associated UTI complicated by E. coli bacteremia. Hospitalization was complicated by acute on chronic kidney disease injury, acute hypoxic respiratory failure, bilateral pulmonary infiltrates, left base more than right concerning for aspiration pneumonia, COPD exacerbation, and volume overload. #Catheter associated UTI/pyelonephritis secondary to E. coli #E. coli bacteremia secondary to UTI #Acute hypoxic respiratory failure #Acute on chronic diastolic heart failure #Possible aspiration pneumonia #Acute on chronic kidney disease stage III injury #Resolved COPD exacerbation #Resolved atrial flutter with RVR #Metabolic encephalopathy likely secondary to sepsis #Bladder stones #Sigmoid colon stricture #Generalized weakness #Hypertension #Dyslipidemia #GERD #Metastatic prostate cancer on Casodex #Suprapubic catheter #Obstructive sleep apnea, does not tolerate CPAP Plan: -Continue cefazolin, anticipate 14 days of antibiotic treatment for gram- negative bacteremia. Changed to oral Keflex if discharged prior to antibiotic completion. -Suprapubic urinary catheter replaced this hospitalization. -Oxygen supplementation, wean as able. -Continue scheduled DuoNebs for now. -Incentive spirometry. -Lasix 60 mg IV twice daily, monitor volume status. -Monitor renal function, electrolytes, volume status. -Continue Lopressor 50 mg twice daily, as needed IV Lopressor for atrial fibrillation or atrial flutter with RVR. -Continue home aspirin, simvastatin, omeprazole. -PT and OT. -secured entrance monitor. -DVT prophylaxis: Heparin SQ. -CODE STATUS: DNR/DNI. Time Spent With Patient Time: Total time spent is greater than 50% in coordination of care (as documented) at patient's floor/unit and/or counseling patient: QUALITY VTE Deep Vein Thrombosis/Pulmonary Embolism Present on Admission: No
[2022-09-27] MEDS: oxyCODONE IR 5 MG TABLET PO PRN (21:53)
[2022-09-27] MEDS: SIMVASTATIN 10 MG TABLET PO SCH (21:53)
[2022-09-27] MEDS: LIDOCAINE 5 GM CREAM.TOP TOPICAL PRN (21:54)
[2022-09-28] MEDS: IPRATROPIUM/ALBUTEROL 3 ML AMPUL.NEB NEB SCH ×2 (01:10→06:30)
[2022-09-28] MEDS: 0.9 % SODIUM CHLORIDE 10 ML SYRINGE IV SCH ×3 (04:05→20:30)
[2022-09-28] MEDS: BUDESONIDE 0.5 MG/2 ML AMPUL.NEB NEB SCH ×2 (06:30→21:49)
[2022-09-28] MEDS: OMEPRAZOLE 20 MG CAPSULE PO SCH (07:21)
[2022-09-28] MEDS: ONDANSETRON 4 MG/2 ML VIAL IV PRN (07:34)
[2022-09-28] MEDS: FUROSEMIDE 100 MG/10 ML VIAL IV SCH (07:34)
[2022-09-28 09:06] LABS: Basophils % (Auto) 0.6 % (0.0-2.0); Eosinophils # (Auto) 0 K/mcL (0.00-0.70); Eosinophils % (Auto) 0 % (0.0-7.0); Hematocrit 39.2 % (40.1-51.0); Hemoglobin 12.9 g/dL (13.7-17.5); Lymphocytes # (Auto) 1.08 K/mcL (1.50-4.80); Lymphocytes % (Auto) 6.6 % (15.5-49.0); Mean Corpuscular HGB Conc 32.9 g/dL (31.0-36.0); Mean Platelet Volume 11.7 fL (8.8-12.5); Monocytes # (Auto) 1.14 K/mcL (0.10-0.90); Monocytes % (Auto) 6.9 % (1.0-12.0); Neutrophils % (Auto) 77.9 % (38.0-78.0); Platelet Count 150 K/mcL (140-440); RBC 4.31 M/mcL (4.63-6.08); Red Cell Distribution Width 13.9 % (11.5-14.5); WBC 16.5 K/mcL (4.5-11.0)
[2022-09-28] MEDS: CALCIUM W/VIT D3 500 MG TABLET PO SCH ×2 (09:21→20:30)
[2022-09-28] MEDS: METOPROLOL TARTRATE 50 MG TABLET PO SCH ×2 (09:21→20:30)
[2022-09-28] MEDS: ceFAZolin 1 GM VIAL IV SCH ×2 (09:21→20:29)
[2022-09-28] MEDS: HEPARIN 5,000 UNIT/ML VIAL SQ SCH ×2 (09:21→20:30)
[2022-09-28] MEDS: ASPIRIN 81 MG TAB.CHEW PO SCH (09:21)
[2022-09-28] MEDS: DOCUSATE SODIUM 100 MG CAPSULE PO SCH ×2 (09:21→20:30)
[2022-09-28 10:03] LABS: ALT/SGPT 18 U/L (<40); AST/SGOT 21 U/L (<40); Albumin 2.7 gm/dL (3.2-5.2); Albumin/Globulin Ratio 0.8 (1.0-2.3); Alkaline Phosphatase 82 U/L (39-117); Bilirubin,Total 0.3 mg/dL (0.1-1.0); Blood Urea Nitrogen 97 mg/dL (8-23); Carbon Dioxide 22 mmol/L (22-30); Chloride 96 mmol/L (96-108); Globulin 3.6 gm/dL (2.2-3.7); Glomerular Filtration Rate 15; Glucose 124 mg/dL (70-105)
[2022-09-28] MEDS ORDERED: ALBUTEROL SULFATE 2.5 MG/3 ML NEBULIZER NEB PRN (10:35)
--- NOTE | 2022-09-28 10:41 | Internal Med Progress Note ---
SUBJECTIVE Subjective Patient information: Note initiated : 09/28/22 at 10:35 am Service Date, if different from initiated Date: [] Patient: Lalit Moyer a 87 y/o M admitted on 09/23/22. Chief Complaint: [] Interval history: Mr. 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 He went to his bed in normal state of health but woke up around 1 AM with an episode of vomiting. He had another couple of episodes of vomiting through the day and was feeling very weak and tired. Throughout the day family noted that patient was somewhat lethargic, confused and stumbling over words. Patient felt some pressure and thought his suprapubic catheter was not draining however noted blood in the catheter. His p.o. intake was low he was not eating and was nauseous. Patient follows up with Dr. Obregon and his last visit was about a week ago when he had his suprapubic catheter changed. Patient denies fever, chills, abdominal pain, diarrhea, constipation, difficulty breathing, cardiac chest pain, heart palpitations, hematemesis, melena, hematochezia. On presentation patient was tachypneic with respiratory rate 31, tachycardia heart rate 113, he was hypoxic of 84% and required 2 L nasal cannula oxygen. Labs were remarkable for WBCs 27,000, hemoglobin 13.4. Lactic acid 4.1. Procalcitonin elevated at 14. Normal electrolytes. Creatinine 2.3 consistent with YEIMY. UA positive for leukocyte Estrace, RBC, WBC, bacteria. CT abdomen and pelvis showed some nonspecific inflammatory changes around left kidney and Gerota fascia extending into the left side of the pelvis. This may be secondary to passage of stone or known inflammatory process. Multiple bladder calculi were noted. Chest x-ray concerning for pneumonia formal read is pending. EKG showed sinus tachycardia ventricular rate 1122 bpm, some PVCs, no acute ST-T wave changes. 7/8. Overall feels well bit better. Reports always have some labored breathing from his COPD. Still hypotensive with blood pressure of 87/60, on IV fluids. Fluctuating between 4 and 8 L nasal cannula oxygen. While I was in the room I weaned it down to 3 L and he was still around 92%. Leukocytosis improved to 23,000 from 27, hemoglobin down to 11.7 from 13.4, but some element of hemodilution. Lactic acidosis cleared and down to 1.8 from 3.0 previously. C reatinine down to 2.1 from 2.3 yesterday. Chest x-ray from 09/23 reviewed. 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 CTA chest was obtained this morning and it showed bilateral pulmonary infiltrates, left base more than right. This could be pneumonia. Patient has moderate emphysema. 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 09/24. Patient appears tired, somewhat tachypneic, smiling and reports no issues. Patient became hypotensive last evening after receiving metoprolol for his tachycardia. He was given 250 cc bolus and blood pressure improved. Creatinine increased to 3.0 from 2.1 yesterday could be secondary to episode of hypotension. He has history of CKD stage III. Reviewed I's and O's. Patient is net positive over 4 L since admission. Echo from February 2020 reviewed. Preserved EF 55-60%, no diastolic dysfunction, no significant valvular dysfunction. Patient BNP is elevated at 8978. Chest x-ray obtained is showing pulmonary edema. Procalcitonin is down to 6 from 14 couple days ago. Blood culture from 09/22 growing gram-negative bacilli. Urine culture pending. 09/25. Yesterday evening, the patient went into atrial flutter with rapid ventricular response. Started oral Lopressor and IV Lopressor as needed. The patient converted back to normal sinus rhythm. After that, vitals remained essentially unchanged overnight, the patient continues to require 3 L/min oxygen supplementation. Urine culture grew pansensitive E. coli, blood culture grew pansensitive E. coli. Antibiotics consolidated to cefazolin. Echo showed LVEF 55 to 60%, unable to accurately assess left ventricular diastolic function due to abnormal rhythm, normal right ventricular size and function. Estimated pulmonary artery pressure of 52 mmHg, trace MR and AI. White blood cell count trending down however still elevated at 15.9. Creatinine increased from 3.3 yesterday to 3.6 today. Holding additional Lasix doses and monitoring volume status. Suprapubic Larsen catheter replaced today. 09/26. No significant events reported overnight, the patient continues to requi re 1.5 to 2 L/min nasal cannula oxygen supplementation. Upon examination, the patient's volume status is increasing now with bilateral pitting edema up to mid shins. Creatinine also increasing. White blood cell count increased slightly, procalcitonin level downtrending. Patient also has abdominal distention today, tympanic and mildly tender. 1 view abdominal x-ray did not show any acute changes. Started Lasix 60 mg IV twice daily. Discontinued prednisone as this may be contributing to fluid retention. 09/27. No significant events overnight, vitals unchanged, continues on 1 to 2 L/min oxygen supplementation. Leukocytosis improving. Renal function the same as yesterday. Urine protein creatinine mildly elevated at 0.45. Mental status has improved. Creatinine appears to have plateaued. Discussed CODE STATUS with the patient, his and child at bedside. The patient said he wished to be DNR DNI. CODE STATUS changed to DNR/DNI. Continue Lasix 60 mg IV twice daily today. 09/28. No significant events overnight, vital stable. Oxygen supplementation 1 L/min this morning. White blood cell count slightly increased to 16 however afebrile. Mental status has improved. Volume status has improved. Creatinine now downtrending, yesterday 3.7 and today 3.4. Discontinued Lasix and monitoring volume status. Continues on cefazolin. Physical exam Head: Atraumatic, normal inspection. Eyes: normal appearance, no scleral icterus. Neck: full ROM Respiratory: 1 L/min oxygen supplementation, bilateral crackles Cardiovascular: normal rate and rhythm, S1, S2. GI/Abdominal: soft, nontender, no guarding. : Suprapubic urinary catheter. Extremities: Bilateral lower extremity pitting edema nearly resolved. Neurological: CN II-XII intact, intact motor, intact sensation. Psychiatric: Normal mood. Skin: warm, normal color Constitutional Vitals: Vital Signs Temp Pulse Resp BP Pulse Ox O2 Del Method O2 Flow Rate 97.8 F 90 22 126/72 91 Nasal Cannula 1 09/28/22 08:00 09/28/22 08:00 09/28/22 08:00 09/28/22 08:00 09/28/22 08:00 09/28/22 08:00 09/28/22 08:00 Period Temp Pulse Resp BP Sys/Morales Pulse Ox O2 Del Method O2 Flow Rate Last 24 Hr 97.0 F-98.4 F 71-94 16-24 104-141/63-87 90-96 High Flow Nasal Cannula-Nasal Cannula, Bubble Humidifier 1-2 Intake and Output 09/27/22 09/28/22 09/28/22 19:59 03:59 11:59 Intake Total 410 554 6576 Output Total 1800 2300 800 Balance -1000 -1660 320 Weight 95.481 kg Intake & Output: Intake & Output 09/27/22 09/28/22 09/28/22 19:59 03:59 11:59 Intake Total 237 146 0459 Output Total 1800 2300 800 Balance -1000 -1660 320 Weight 95.481 kg Intake: Nourishment/Supplement quantity 240 (ml) Oral 800 640 880 Output: Urine Catheter Amount 1800 2300 800 Other: Meal Dinner Breakfast Percent of Meal Consumed 100% 50% Nourishment/Supplement name Ensure Urine Appearance Sediment Clear Clear Urine Color Yellow Yellow Yellow Pale Urine Odor Normal OBJ DATA Labs 09/28/22 07:22 09/28/22 07:22 Labs: Abnormal Lab Results 09/28/22 09/28/22 09/27/22 07:22 07:22 05:54 WBC 16.5 H 15.0 H RBC 4.31 L 3.65 L Hgb 12.9 L 10.9 L Hct 39.2 L 33.5 L Plt Count 122 L Immature Gran % (Auto) 8.0 H 4.8 H Neut % (Auto) 84.1 H Lymph % (Auto) 6.6 L 4.3 L Lymph # (Auto) 1.08 L 0.65 L Vance # (Auto) 1.14 H 0.96 H Immature Gran # 1.32 H 0.72 H Absolute Neutrophils 12.83 H 12.61 H Carbon Dioxide BUN 97 H Creatinine 3.4 H Glucose 124 H Calcium Total Protein Albumin 2.7 L Albumin/Globulin Ratio 0.8 L Procalcitonin U [place] Prot/Creat Ratio 09/27/22 09/26/22 09/26/22 05:54 11:35 05:22 WBC RBC Hgb Hct Plt Count Immature Gran % (Auto) Neut % (Auto) Lymph % (Auto) Lymph # (Auto) Vance # (Auto) Immature Gran # Absolute Neutrophils Carbon Dioxide 21 L BUN 88 H Creatinine 3.7 H Glucose 137 H Calcium Total Protein Albumin 2.4 L Albumin/Globulin Ratio 0.6 L Procalcitonin 3.21 H U [place] Prot/Creat Ratio 0.45 H 09/26/22 09/26/22 05:22 05:21 WBC 17.3 H RBC 3.48 L Hgb 10.6 L Hct 31.8 L Plt Count 107 L Immature Gran % (Auto) 2.4 H Neut % (Auto) 90.5 H Lymph % (Auto) 2.7 L Lymph # (Auto) 0.46 L Vance # (Auto) Immature Gran # 0.42 H Absolute Neutrophils 15.67 H Carbon Dioxide 17 L BUN 71 H Creatinine 3.7 H Glucose 150 H Calcium 8.3 L Total Protein 5.8 L Albumin 2.6 L Albumin/Globulin Ratio 0.8 L Procalcitonin U [place] Prot/Creat Ratio Meds: Medications Albuterol Sulfate (Albuterol Sulfate 2.5 Mg/3 Ml Nebulizer) 2.5 mg NEB Q2HP PRN PRN Reason: Shortness Of Breath Albuterol/Ipratropium (Ipratropium/Albuterol 3 Ml Ampul.Neb) 3 ml NEB Q6HRT PRN PRN Reason: Dyspnea or wheezing Aspirin (Aspirin 81 Mg Tab.Chew) 81 mg PO DAILY PENDING SALE TO [facility] Last Admin: 09/28/22 09:21 Dose: 81 mg Budesonide (Budesonide 0.5 Mg/2 Ml Ampul.Neb) 0.5 mg NEB Q12 PENDING SALE TO [facility] Last Admin: 09/28/22 06:30 Dose: 0.5 mg Calcium/Vitamin D (Calcium W/Vit D3 500 Mg Tablet) 500 mg PO BID PENDING SALE TO [facility] Last Admin: 09/28/22 09:21 Dose: 500 mg Cefazolin Sodium (Cefazolin 1 Gm Vial) 1 gm IV Q12H PENDING SALE TO [facility]; Protocol Last Admin: 09/28/22 09:21 Dose: 1 gm Docusate Sodium (Docusate Sodium 100 Mg Capsule) 100 mg PO BID PENDING SALE TO [facility] Last Admin: 09/28/22 09:21 Dose: 100 mg Heparin Sodium (Porcine) (Heparin 5,000 Unit/Ml Vial) 5,000 unit SQ Q12 PENDING SALE TO [facility] Last Admin: 09/28/22 09:21 Dose: 5,000 unit Acetaminophen (Ofirmev) 1,000 mg in 100 mls @ 200 mls/hr IV TIDP PRN; Protocol PRN Reason: pain Last Infusion: 09/26/22 22:00 Dose: Infused Lactulose (Lactulose 20 Gm/30 Ml Oral.Taya) 10 gm PO DAILYP PRN PRN Reason: Constipation Lidocaine (Lidocaine 5 Gm Cream.Top) 5 gm TOPICAL TIDP PRN PRN Reason: Pain Last Admin: 09/27/22 21:54 Dose: 5 gm Lidocaine (Lidocaine Patch) 1 patch TOPICAL DAILY@1000 JYOTI Last Admin: 09/27/22 11:23 Dose: 1 patch Metoprolol Tartrate (Metoprolol Tartrate 50 Mg Tablet) 50 mg PO BID PENDING SALE TO [facility] Last Admin: 09/28/22 09:21 Dose: 50 mg Metoprolol Tartrate (Metoprolol Tartrate 5 Mg/5 Ml Vial) 5 mg IV Q4HP PRN PRN Reason: Tachyarrhythmias Last Admin: 09/24/22 17:45 Dose: 2 mg Non-Formulary Medication (Tiotropium [place] [Spiriva Respimat]) 2 puff INHALATION QAM PENDING SALE TO [facility] Omeprazole (Omeprazole 20 Mg Capsule) 20 mg PO ACB PENDING SALE TO [facility] Last Admin: 09/28/22 07:21 Dose: 20 mg Ondansetron HCl (Ondansetron 4 Mg/2 Ml Vial) 4 mg IV Q4HP PRN; Protocol PRN Reason: Nausea And Vomiting Last Admin: 09/28/22 07:34 Dose: 4 mg Oxycodone HCl (Oxycodone Ir 5 Mg Tablet) 5 mg PO Q4HP PRN; Protocol PRN Reason: Per Pain Protocol Last Admin: 09/27/22 21:53 Dose: 5 mg Senna (Sennosides 1 Tablet) 2 tab PO HSP PRN PRN Reason: Constipation Simvastatin (Simvastatin 10 Mg Tablet) 10 mg PO HS PENDING SALE TO [facility] Last Admin: 09/27/22 21:53 Dose: 10 mg Sodium Chloride (0.9 % Sodium Chloride 10 Ml Syringe) 10 ml IV Q8 PENDING SALE TO [facility] Last Admin: 09/28/22 04:05 Dose: 10 ml A/P Narrative A/P Narrative: Assessment: 87-year-old male with a history of hypertension, hyperlipidemia, chronic kidney disease stage III, COPD, bilateral pleural plaques secondary to asbestos, obstructive sleep apnea intolerant of CPAP, GERD, metastatic prostate cancer on Casodex, suprapubic catheter, recurrent UTIs admitted for catheter associated UTI complicated by E. coli bacteremia. Hospitalization was complicated by acute on chronic kidney disease injury, acute hypoxic respiratory failure, bilateral pulmonary infiltrates, left base more than right concerning for aspiration pneumonia, COPD exacerbation, and volume overload. #Catheter associated UTI/pyelonephritis secondary to E. coli #E. coli bacteremia secondary to UTI #Acute hypoxic respiratory failure, improving #Possible aspiration pneumonitis/pneumonia #Acute on chronic kidney disease stage III injury probably secondary to ATN, improving #Improved volume overload #Resolved COPD exacerbation #Resolved atrial flutter with RVR #Metabolic encephalopathy likely secondary to sepsis #Bladder stones #Sigmoid colon stricture #Generalized weakness #Hypertension #Dyslipidemia #GERD #Metastatic prostate cancer on Casodex #Suprapubic catheter #Obstructive sleep apnea, does not tolerate CPAP Plan: -Continue cefazolin, anticipate 14 days of antibiotic treatment for gram- negative bacteremia. Changed to oral Keflex if discharged prior to antibiotic completion. -Suprapubic urinary catheter replaced this hospitalization. -Oxygen supplementation, wean as able. -Resume home Spiriva, as needed DuoNebs and albuterol nebs. -Incentive spirometry. -Discontinue Lasix IV and monitor volume status, consider oral loop diuretic. -Monitor renal function, electrolytes. -Continue Lopressor 50 mg twice daily, as needed IV Lopressor for atrial fibrillation or atrial flutter with RVR. -Continue home aspirin, simvastatin, omeprazole. -PT and OT. -panel monitor. -DVT prophylaxis: Heparin SQ. -CODE STATUS: DNR/DNI. Time Spent With Patient Time: Total time spent is greater than 50% in coordination of care (as documented) at patient's floor/unit and/or counseling patient: QUALITY VTE Deep Vein Thrombosis/Pulmonary Embolism Present on Admission: No
[2022-09-28] MEDS: LIDOCAINE PATCH TOPICAL SCH (13:52)
[2022-09-28] MEDS: SIMVASTATIN 10 MG TABLET PO SCH (20:30)
[2022-09-28] MEDS: oxyCODONE IR 5 MG TABLET PO PRN (20:35)
[2022-09-29] MEDS: IPRATROPIUM/ALBUTEROL 3 ML AMPUL.NEB NEB PRN ×2 (00:50→08:58)
[2022-09-29] MEDS: 0.9 % SODIUM CHLORIDE 10 ML SYRINGE IV SCH ×3 (05:23→22:14)
[2022-09-29 06:20] LABS: Basophils # (Auto) 0.02 K/mcL (0.00-0.30); Basophils % (Auto) 0.1 % (0.0-2.0); Eosinophils # (Auto) 0.04 K/mcL (0.00-0.70); Eosinophils % (Auto) 0.2 % (0.0-7.0); Hemoglobin 12.7 g/dL (13.7-17.5); Lymphocytes # (Auto) 1.25 K/mcL (1.50-4.80); Lymphocytes % (Auto) 6.3 % (15.5-49.0); Mean Cell Volume 91.3 fL (80.0-100.0); Mean Corpuscular HGB Conc 32.6 g/dL (31.0-36.0); Monocytes # (Auto) 1.02 K/mcL (0.10-0.90); Monocytes % (Auto) 5.1 % (1.0-12.0); Neutrophils % (Auto) 78.9 % (38.0-78.0); Platelet Count 171 K/mcL (140-440); RBC 4.27 M/mcL (4.63-6.08); Red Cell Distribution Width 13.8 % (11.5-14.5)
[2022-09-29 07:38] LABS: ALT/SGPT 10 U/L (<40); AST/SGOT 15 U/L (<40); Albumin 2.8 gm/dL (3.2-5.2); Albumin/Globulin Ratio 0.8 (1.0-2.3); Alkaline Phosphatase 87 U/L (39-117); Bilirubin,Total 0.4 mg/dL (0.1-1.0); Blood Urea Nitrogen 107 mg/dL (8-23); Calcium 9.1 mg/dL (8.6-10.4); Carbon Dioxide 26 mmol/L (22-30); Chloride 97 mmol/L (96-108); Globulin 3.5 gm/dL (2.2-3.7); Glomerular Filtration Rate 15; Glucose 136 mg/dL (70-105)
[2022-09-29] MEDS: OMEPRAZOLE 20 MG CAPSULE PO SCH (07:42)
--- NOTE | 2022-09-29 08:14 | Internal Med Progress Note ---
SUBJECTIVE Subjective Patient information: Note initiated : 09/29/22 at 8:02 am Service Date, if different from initiated Date: [] Patient: Lailt Moyer a 87 y/o M admitted on 09/23/22. Chief Complaint: [] Interval history: Mr. 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 He went to his bed in normal state of health but woke up around 1 AM with an episode of vomiting. He had another couple of episodes of vomiting through the day and was feeling very weak and tired. Throughout the day family noted that p atient was somewhat lethargic, confused and stumbling over words. Patient felt some pressure and thought his suprapubic catheter was not draining however noted blood in the catheter. His p.o. intake was low he was not eating and was nauseous. Patient follows up with Dr. Obregon and his last visit was about a week ago when he had his suprapubic catheter changed. Patient denies fever, chills, abdominal pain, diarrhea, constipation, difficulty breathing, cardiac chest pain, heart palpitations, hematemesis, melena, hematochezia. On presentation patient was tachypneic with respiratory rate 31, tachycardia heart rate 113, he was hypoxic of 84% and required 2 L nasal cannula oxygen. Labs were remarkable for WBCs 27,000, hemoglobin 13.4. Lactic acid 4.1. Procalcitonin elevated at 14. Normal electrolytes. Creatinine 2.3 consistent with YEIMY. UA positive for leukocyte Estrace, RBC, WBC, bacteria. CT abdomen and pelvis showed some nonspecific inflammatory changes around left kidney and Gerota fascia extending into the left side of the pelvis. This may be secondary to passage of stone or known inflammatory process. Multiple bladder calculi were noted. Chest x-ray concerning for pneumonia formal read is pending. EKG showed sinus tachycardia ventricular rate 1122 bpm, some PVCs, no acute ST-T wave changes. 7/8. Overall feels well bit better. Reports always have some labored breathing from his COPD. Still hypotensive with blood pressure of 87/60, on IV fluids. Fluctuating between 4 and 8 L nasal cannula oxygen. While I was in the room I weaned it down to 3 L and he was still around 92%. Leukocytosis improved to 23,000 from 27, hemoglobin down to 11.7 from 13.4, but some element of hemodilution. Lactic acidosis cleared and down to 1.8 from 3.0 previously. Cr eatinine down to 2.1 from 2.3 yesterday. Chest x-ray from 09/23 reviewed. 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 CTA chest was obtained this morning and it showed bilateral pulmonary infiltrates, left base more than right. This could be pneumonia. Patient has moderate emphysema. 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 09/24. Patient appears tired, somewhat tachypneic, smiling and reports no issues. Patient became hypotensive last evening after receiving metoprolol for his tachycardia. He was given 250 cc bolus and blood pressure improved. Creatinine increased to 3.0 from 2.1 yesterday could be secondary to episode of hypotension. He has history of CKD stage III. Reviewed I's and O's. Patient is net positive over 4 L since admission. Echo from February 2020 reviewed. Preserved EF 55-60%, no diastolic dysfunction, no significant valvular dysfunction. Patient BNP is elevated at 8978. Chest x-ray obtained is showing pulmonary edema. Procalcitonin is down to 6 from 14 couple days ago. Blood culture from 09/22 growing gram-negative bacilli. Urine culture pending. 09/25. Yesterday evening, the patient went into atrial flutter with rapid ventricular response. Started oral Lopressor and IV Lopressor as needed. The patient converted back to normal sinus rhythm. After that, vitals remained essentially unchanged overnight, the patient continues to require 3 L/min oxygen supplementation. Urine culture grew pansensitive E. coli, blood culture grew pansensitive E. coli. Antibiotics consolidated to cefazolin. Echo showed LVEF 55 to 60%, unable to accurately assess left ventricular diastolic function due to abnormal rhythm, normal right ventricular size and function. Estimated pulmonary artery pressure of 52 mmHg, trace MR and AI. White blood cell count trending down however still elevated at 15.9. Creatinine increased from 3.3 yesterday to 3.6 today. Holding additional Lasix doses and monitoring volume status. Suprapubic Larsen catheter replaced today. 09/26. No significant events reported overnight, the patient continues to requir e 1.5 to 2 L/min nasal cannula oxygen supplementation. Upon examination, the patient's volume status is increasing now with bilateral pitting edema up to mid shins. Creatinine also increasing. White blood cell count increased slightly, procalcitonin level downtrending. Patient also has abdominal distention today, tympanic and mildly tender. 1 view abdominal x-ray did not show any acute changes. Started Lasix 60 mg IV twice daily. Discontinued prednisone as this may be contributing to fluid retention. 09/27. No significant events overnight, vitals unchanged, continues on 1 to 2 L/min oxygen supplementation. Leukocytosis improving. Renal function the same as yesterday. Urine protein creatinine mildly elevated at 0.45. Mental status has improved. Creatinine appears to have plateaued. Discussed CODE STATUS with the patient, his and child at bedside. The patient said he wished to be DNR DNI. CODE STATUS changed to DNR/DNI. Continue Lasix 60 mg IV twice daily today. 09/28. No significant events overnight, vital stable. Oxygen supplementation 1 L/min this morning. White blood cell count slightly increased to 16 however afebrile. Mental status has improved. Volume status has improved. Creatinine now downtrending, yesterday 3.7 and today 3.4. Discontinued Lasix and monitoring volume status. Continues on cefazolin. 09/29. 4 L nasal cannula oxygen overnight, afebrile and vitals stable. White blood cell count increased today, procalcitonin continues to trend down. Renal function is about the same as yesterday, BUN increased. Monitoring volume status, the patient is drinking fluids. Chest x-ray ordered today. Continues on cefazolin. Physical exam Head: Atraumatic, normal inspection. Eyes: normal appearance, no scleral icterus. Neck: full ROM Respiratory: 4 L/min oxygen supplementation, bilateral crackles Cardiovascular: normal rate and rhythm, S1, S2. GI/Abdominal: soft, nontender, no guarding. : Suprapubic urinary catheter. Extremities: Improved bilateral lower extremity pitting edema. Skin: warm, normal color Constitutional Vitals: Vital Signs Temp Pulse Resp BP Pulse Ox O2 Del Method O2 Flow Rate 97.1 F 84 20 114/67 94 Nasal Cannula 4 09/29/22 07:46 09/29/22 07:46 09/29/22 05:52 09/29/22 07:46 09/29/22 07:46 09/29/22 07:46 09/29/22 07:46 Period Temp Pulse Resp BP Sys/Morales Pulse Ox O2 Del Method O2 Flow Rate Last 24 Hr 97.1 F-98.6 F 74-94 14-28 69-138/54-80 91-96 Nasal Cannula- Nasal Cannula 1-5 Intake and Output 09/28/22 09/29/22 09/29/22 19:59 03:59 11:59 Intake Total 720 300 Output Total 1050 875 300 Balance -330 -575 -300 Weight 95.527 kg Intake & Output: Intake & Output 09/28/22 09/29/22 09/29/22 19:59 03:59 11:59 Intake Total 720 300 Output Total 1050 875 300 Balance -330 -575 -300 Weight 95.527 kg Intake: Oral 720 300 Output: Urine Catheter Amount 1050 875 300 Other: Meal Nourishment/Supplement Percent of Meal Consumed 100% Urine Appearance Clear Clear Suprapubic Clear Urine Color Yellow Yellow Yellow Suprapubic Yellow Pale Urine Odor Normal OBJ DATA Labs 09/29/22 05:27 09/29/22 05:27 Labs: Abnormal Lab Results 09/29/22 09/29/22 09/29/22 05:27 05:27 05:27 WBC 20.0 H RBC 4.27 L Hgb 12.7 L Hct 39.0 L Plt Count Immature Gran % (Auto) 9.4 H Neut % (Auto) 78.9 H Lymph % (Auto) 6.3 L Lymph # (Auto) 1.25 L Rankin # (Auto) 1.02 H Immature Gran # 1.87 H Absolute Neutrophils 15.77 H Carbon Dioxide BUN 107 H* Creatinine 3.5 H Glucose 136 H Albumin 2.8 L Albumin/Globulin Ratio 0.8 L Procalcitonin 0.84 H U Webster Prot/Creat Ratio 09/28/22 09/28/22 09/27/22 07:22 07:22 05:54 WBC 16.5 H 15.0 H RBC 4.31 L 3.65 L Hgb 12.9 L 10.9 L Hct 39.2 L 33.5 L Plt Count 122 L Immature Gran % (Auto) 8.0 H 4.8 H Neut % (Auto) 84.1 H Lymph % (Auto) 6.6 L 4.3 L Lymph # (Auto) 1.08 L 0.65 L Rankin # (Auto) 1.14 H 0.96 H Immature Gran # 1.32 H 0.72 H Absolute Neutrophils 12.83 H 12.61 H Carbon Dioxide BUN 97 H Creatinine 3.4 H Glucose 124 H Albumin 2.7 L Albumin/Globulin Ratio 0.8 L Procalcitonin U Webster Prot/Creat Ratio 09/27/22 09/26/22 09/26/22 05:54 11:35 05:22 WBC RBC Hgb Hct Plt Count Immature Gran % (Auto) Neut % (Auto) Lymph % (Auto) Lymph # (Auto) Rankin # (Auto) Immature Gran # Absolute Neutrophils Carbon Dioxide 21 L BUN 88 H Creatinine 3.7 H Glucose 137 H Albumin 2.4 L Albumin/Globulin Ratio 0.6 L Procalcitonin 3.21 H U Webster Prot/Creat Ratio 0.45 H Meds: Medications Albuterol Sulfate (Albuterol Sulfate 2.5 Mg/3 Ml Nebulizer) 2.5 mg NEB Q2HP PRN PRN Reason: Shortness Of Breath Albuterol/Ipratropium (Ipratropium/Albuterol 3 Ml Ampul.Neb) 3 ml NEB Q6HRT PRN PRN Reason: Dyspnea or wheezing Last Admin: 09/29/22 00:50 Dose: 3 ml Aspirin (Aspirin 81 Mg Tab.Chew) 81 mg PO DAILY COUNT INCLUDES THE [facility] Last Admin: 09/28/22 09:21 Dose: 81 mg Budesonide (Budesonide 0.5 Mg/2 Ml Ampul.Neb) 0.5 mg NEB Q12 COUNT INCLUDES THE [facility] Last Admin: 09/28/22 21:49 Dose: 0.5 mg Calcium/Vitamin D (Calcium W/Vit D3 500 Mg Tablet) 500 mg PO BID COUNT INCLUDES THE [facility] Last Admin: 09/28/22 20:30 Dose: 500 mg Cefazolin Sodium (Cefazolin 1 Gm Vial) 1 gm IV Q12H COUNT INCLUDES THE [facility]; Protocol Last Admin: 09/28/22 20:29 Dose: 1 gm Docusate Sodium (Docusate Sodium 100 Mg Capsule) 100 mg PO BID COUNT INCLUDES THE [facility] Last Admin: 09/28/22 20:30 Dose: 100 mg Heparin Sodium (Porcine) (Heparin 5,000 Unit/Ml Vial) 5,000 unit SQ Q12 COUNT INCLUDES THE [facility] Last Admin: 09/28/22 20:30 Dose: 5,000 unit Acetaminophen (Ofirmev) 1,000 mg in 100 mls @ 200 mls/hr IV TIDP PRN; Protocol PRN Reason: pain Last Infusion: 09/26/22 22:00 Dose: Infused Lactulose (Lactulose 20 Gm/30 Ml Oral.Taya) 10 gm PO DAILYP PRN PRN Reason: Constipation Lidocaine (Lidocaine 5 Gm Cream.Top) 5 gm TOPICAL TIDP PRN PRN Reason: Pain Last Admin: 09/27/22 21:54 Dose: 5 gm Lidocaine (Lidocaine Patch) 1 patch TOPICAL DAILY@1000 JYOTI Last Admin: 09/28/22 13:52 Dose: 1 patch Metoprolol Tartrate (Metoprolol Tartrate 50 Mg Tablet) 50 mg PO BID COUNT INCLUDES THE [facility] Last Admin: 09/28/22 20:30 Dose: 50 mg Metoprolol Tartrate (Metoprolol Tartrate 5 Mg/5 Ml Vial) 5 mg IV Q4HP PRN PRN Reason: Tachyarrhythmias Last Admin: 09/24/22 17:45 Dose: 2 mg Omeprazole (Omeprazole 20 Mg Capsule) 20 mg PO ACB COUNT INCLUDES THE [facility] Last Admin: 09/29/22 07:42 Dose: 20 mg Ondansetron HCl (Ondansetron 4 Mg/2 Ml Vial) 4 mg IV Q4HP PRN; Protocol PRN Reason: Nausea And Vomiting Last Admin: 09/28/22 07:34 Dose: 4 mg Oxycodone HCl (Oxycodone Ir 5 Mg Tablet) 5 mg PO Q4HP PRN; Protocol PRN Reason: Per Pain Protocol Last Admin: 09/28/22 20:35 Dose: 5 mg Tiotropium Grant [ Spiriva Respimat] 2. 5 Mcg/Act Inhaler 2 dose INH DAILY COUNT INCLUDES THE [facility] Senna (Sennosides 1 Tablet) 2 tab PO HSP PRN PRN Reason: Constipation Last Admin: 09/28/22 20:30 Dose: 2 tab Simvastatin (Simvastatin 10 Mg Tablet) 10 mg PO HS COUNT INCLUDES THE [facility] Last Admin: 09/28/22 20:30 Dose: 10 mg Sodium Chloride (0.9 % Sodium Chloride 10 Ml Syringe) 10 ml IV Q8 JYOTI Last Admin: 09/29/22 05:23 Dose: 10 ml A/P Narrative A/P Narrative: Assessment: 87-year-old male with a history of hypertension, hyperlipidemia, chronic kidney disease stage III, COPD, bilateral pleural plaques secondary to asbestos, obstructive sleep apnea intolerant of CPAP, GERD, metastatic prostate cancer on Casodex, suprapubic catheter, recurrent UTIs admitted for catheter associated UTI complicated by E. coli bacteremia. Hospitalization was complic ated by acute on chronic kidney disease injury, acute hypoxic respiratory failure, bilateral pulmonary infiltrates, left base more than right concerning for aspiration pneumonia, COPD exacerbation, acute kidney injury, volume overload, atrial fibrillation with RVR. He has been treated with antibiotics, was diuresed for several days with IV Lasix, he received a short course of corticosteroids and inhalers for COPD exacerbation. The patient has had a fluctuating hospital course, overall he appears to be slowly improving. #Catheter associated UTI/pyelonephritis secondary to E. coli #E. coli bacteremia secondary to UTI #Acute hypoxic respiratory failure, improving #Possible aspiration pneumonitis/pneumonia #Acute on chronic kidney disease stage III injury probably secondary to ATN, gradually improving #Improved volume overload #Resolved atrial flutter with RVR #Improved metabolic encephalopathy secondary to sepsis #Resolved COPD exacerbation #Bladder stones #Sigmoid colon stricture #Generalized weakness #Hypertension #Dyslipidemia #GERD #Metastatic prostate cancer on Casodex #Suprapubic catheter #Obstructive sleep apnea, does not tolerate CPAP Plan: -Continue cefazolin, anticipate 14 days of antibiotic treatment for gram- negative bacteremia. -Suprapubic urinary catheter replaced this hospitalization. -Oxygen supplementation, wean as able. -Chest x-ray today. -Home Spiriva, as needed DuoNebs and albuterol nebs. -Incentive spirometry. -Monitor renal function, electrolytes. Consider IV fluids if BUN and creatinine increase. -Continue Lopressor 50 mg twice daily, as needed IV Lopressor for atrial fibrillation or atrial flutter with RVR. -Continue home Spiriva aspirin, simvastatin, omeprazole. -PT and OT. -pvc monitor. -DVT prophylaxis: Heparin SQ. -CODE STATUS: DNR/DNI. Time Spent With Patient Time: Total time spent is greater than 50% in coordination of care (as documented) at patient's floor/unit and/or counseling patient: QUALITY VTE Deep Vein Thrombosis/Pulmonary Embolism Present on Admission: No
[2022-09-29] MEDS: ceFAZolin 1 GM VIAL IV SCH ×2 (08:50→22:14)
[2022-09-29] MEDS: ASPIRIN 81 MG TAB.CHEW PO SCH (08:51)
[2022-09-29] MEDS: METOPROLOL TARTRATE 50 MG TABLET PO SCH ×2 (08:51→22:14)
[2022-09-29] MEDS: HEPARIN 5,000 UNIT/ML VIAL SQ SCH ×2 (08:51→22:14)
[2022-09-29] MEDS: Tiotropium Bromide [Spiriva Respimat] 2.5 mcg/act Inhaler INH SCH (08:51)
[2022-09-29] MEDS: CALCIUM W/VIT D3 500 MG TABLET PO SCH ×2 (08:51→22:13)
[2022-09-29] MEDS: DOCUSATE SODIUM 100 MG CAPSULE PO SCH ×2 (08:51→22:13)
[2022-09-29] MEDS: BUDESONIDE 0.5 MG/2 ML AMPUL.NEB NEB SCH ×2 (08:58→20:11)
--- NOTE | 2022-09-29 09:36 | XRay Report ---
CLINICAL INFORMATION: increasing oxygen requirement and leukocytosis COMPARISON: 09/24/2022 FINDINGS: Moderate cardiomegaly is unchanged. Mediastinum is unremarkable. The pulmonary vasculature has decreased from prior x-ray and is now only mildly distended. Perihilar edema has nearly resolved. Small left pleural effusion noted. Pleural parenchyma calcification in the right lateral base exhibits long-term stability. There is minor atelectasis in the left base. IMPRESSION: Complete resolution and CHF. Minor left basilar atelectasis. Interpreted and Authenticated by: Daniel Bateman 09/29/22
[2022-09-29] MEDS: LIDOCAINE PATCH TOPICAL SCH (10:38)
[2022-09-29] MEDS ORDERED: 0.9 % SODIUM CHLORIDE 500 ML IV ONE (10:54)
--- NOTE | 2022-09-29 13:39 | Internal Med Progress Note ---
SUBJECTIVE Subjective Patient information: Note initiated : 09/29/22 at 1:32 pm Service Date, if different from initiated Date: [] Patient: Lalit Moyer a 87 y/o M admitted on 09/23/22. Chief Complaint: [] Interval history: Mr. 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 He went to his bed in normal state of health but woke up around 1 AM with an episode of vomiting. He had another couple of episodes of vomiting through the day and was feeling very weak and tired. Throughout the day family noted that p atient was somewhat lethargic, confused and stumbling over words. Patient felt some pressure and thought his suprapubic catheter was not draining however noted blood in the catheter. His p.o. intake was low he was not eating and was nauseous. Patient follows up with Dr. Obregon and his last visit was about a week ago when he had his suprapubic catheter changed. Patient denies fever, chills, abdominal pain, diarrhea, constipation, difficulty breathing, cardiac chest pain, heart palpitations, hematemesis, melena, hematochezia. On presentation patient was tachypneic with respiratory rate 31, tachycardia heart rate 113, he was hypoxic of 84% and required 2 L nasal cannula oxygen. Labs were remarkable for WBCs 27,000, hemoglobin 13.4. Lactic acid 4.1. Procalcitonin elevated at 14. Normal electrolytes. Creatinine 2.3 consistent with YEIMY. UA positive for leukocyte Estrace, RBC, WBC, bacteria. CT abdomen and pelvis showed some nonspecific inflammatory changes around left kidney and Gerota fascia extending into the left side of the pelvis. This may be secondary to passage of stone or known inflammatory process. Multiple bladder calculi were noted. Chest x-ray concerning for pneumonia formal read is pending. EKG showed sinus tachycardia ventricular rate 1122 bpm, some PVCs, no acute ST-T wave changes. 7/8. Overall feels well bit better. Reports always have some labored breathing from his COPD. Still hypotensive with blood pressure of 87/60, on IV fluids. Fluctuating between 4 and 8 L nasal cannula oxygen. While I was in the room I weaned it down to 3 L and he was still around 92%. Leukocytosis improved to 23,000 from 27, hemoglobin down to 11.7 from 13.4, but some element of hemodilution. Lactic acidosis cleared and down to 1.8 from 3.0 previously. Cr eatinine down to 2.1 from 2.3 yesterday. Chest x-ray from 09/23 reviewed. 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 CTA chest was obtained this morning and it showed bilateral pulmonary infiltrates, left base more than right. This could be pneumonia. Patient has moderate emphysema. 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 09/24. Patient appears tired, somewhat tachypneic, smiling and reports no issues. Patient became hypotensive last evening after receiving metoprolol for his tachycardia. He was given 250 cc bolus and blood pressure improved. Creatinine increased to 3.0 from 2.1 yesterday could be secondary to episode of hypotension. He has history of CKD stage III. Reviewed I's and O's. Patient is net positive over 4 L since admission. Echo from February 2020 reviewed. Preserved EF 55-60%, no diastolic dysfunction, no significant valvular dysfunction. Patient BNP is elevated at 8978. Chest x-ray obtained is showing pulmonary edema. Procalcitonin is down to 6 from 14 couple days ago. Blood culture from 09/22 growing gram-negative bacilli. Urine culture pending. 09/25. Yesterday evening, the patient went into atrial flutter with rapid ventricular response. Started oral Lopressor and IV Lopressor as needed. The patient converted back to normal sinus rhythm. After that, vitals remained essentially unchanged overnight, the patient continues to require 3 L/min oxygen supplementation. Urine culture grew pansensitive E. coli, blood culture grew pansensitive E. coli. Antibiotics consolidated to cefazolin. Echo showed LVEF 55 to 60%, unable to accurately assess left ventricular diastolic function due to abnormal rhythm, normal right ventricular size and function. Estimated pulmonary artery pressure of 52 mmHg, trace MR and AI. White blood cell count trending down however still elevated at 15.9. Creatinine increased from 3.3 yesterday to 3.6 today. Holding additional Lasix doses and monitoring volume status. Suprapubic Larsen catheter replaced today. 09/26. No significant events reported overnight, the patient continues to requir e 1.5 to 2 L/min nasal cannula oxygen supplementation. Upon examination, the patient's volume status is increasing now with bilateral pitting edema up to mid shins. Creatinine also increasing. White blood cell count increased slightly, procalcitonin level downtrending. Patient also has abdominal distention today, tympanic and mildly tender. 1 view abdominal x-ray did not show any acute changes. Started Lasix 60 mg IV twice daily. Discontinued prednisone as this may be contributing to fluid retention. 09/27. No significant events overnight, vitals unchanged, continues on 1 to 2 L/min oxygen supplementation. Leukocytosis improving. Renal function the same as yesterday. Urine protein creatinine mildly elevated at 0.45. Mental status has improved. Creatinine appears to have plateaued. Discussed CODE STATUS with the patient, his and child at bedside. The patient said he wished to be DNR DNI. CODE STATUS changed to DNR/DNI. Continue Lasix 60 mg IV twice daily today. 09/28. No significant events overnight, vital stable. Oxygen supplementation 1 L/min this morning. White blood cell count slightly increased to 16 however afebrile. Mental status has improved. Volume status has improved. Creatinine now downtrending, yesterday 3.7 and today 3.4. Discontinued Lasix and monitoring volume status. Continues on cefazolin. 09/29. 4 L nasal cannula oxygen overnight, afebrile and vitals stable. White blood cell count increased today, procalcitonin continues to trend down. Renal function is about the same as yesterday, BUN increased. Monitoring volume status, the patient is drinking fluids. Chest x-ray ordered today. Continues on cefazolin. 09/30 Review of Systems: denies headache/fever/chills/nausea/vomiting/chest or abdominal pain/cough/dyspnea/diarrhea. Otherwise see above. PHYSICAL EXAM General: Alert, Awake, No acute Distress Eyes/N/T: EOMI, no scleral icterus, Head/Neck: neck supple, full ROM, CV: RRR, No murmurs, Pulm: rales b/l, no wheezing, no respiratory distress, supp O2 Abd: soft, nontender, +BS x4 : Suprapubic urinary catheter. Ext: no clubbing/cyanosis, b/l LE edema, nontender Neuro: Alert, no focal deficits, moves all extremities, , sensations intact b/l upper/lower Psychiatric: Skin: warm/dry, normal color Constitutional Vitals: Vital Signs Temp Pulse Resp BP Pulse Ox O2 Del Method O2 Flow Rate 97.4 F 89 20 118/62 93 Nasal Cannula 2.5 09/29/22 11:30 09/29/22 11:30 09/29/22 09:15 09/29/22 11:30 09/29/22 11:30 09/29/22 11:30 09/29/22 11:30 Period Temp Pulse Resp BP Sys/Morales Pulse Ox O2 Del Method O2 Flow Rate Last 24 Hr 97.1 F-98.6 F 80-94 14- 108-138/57-80 92-96 Nasal Cannula- Nasal Cannula 1-5 Intake and Output 09/29/22 09/29/22 09/29/22 03:59 11:59 19:59 Intake Total 300 600 Output Total 875 550 Balance -575 50 Weight 95.527 kg Intake & Output: Intake & Output 09/29/22 09/29/22 09/29/22 03:59 11:59 19:59 Intake Total 300 600 Output Total 875 550 Balance -575 50 Weight 95.527 kg Intake: Oral 300 600 Output: Urine Catheter Amount 875 550 Other: Meal Breakfast Percent of Meal Consumed 75% Feeding Ability Independent Urine Appearance Clear Urine Color Yellow Yellow Urine Odor Normal OBJ DATA Labs 09/29/22 05:27 09/29/22 05:27 Labs: Abnormal Lab Results 09/29/22 09/29/22 09/29/22 05:27 05:27 05:27 WBC 20.0 H RBC 4.27 L Hgb 12.7 L Hct 39.0 L Plt Count Immature Gran % (Auto) 9.4 H Neut % (Auto) 78.9 H Lymph % (Auto) 6.3 L Lymph # (Auto) 1.25 L Geary # (Auto) 1.02 H Immature Gran # 1.87 H Absolute Neutrophils 15.77 H Carbon Dioxide BUN 107 H* Creatinine 3.5 H Glucose 136 H Albumin 2.8 L Albumin/Globulin Ratio 0.8 L Procalcitonin 0.84 H U Clyde Prot/Creat Ratio 09/28/22 09/28/22 09/27/22 07:22 07:22 05:54 WBC 16.5 H 15.0 H RBC 4.31 L 3.65 L Hgb 12.9 L 10.9 L Hct 39.2 L 33.5 L Plt Count 122 L Immature Gran % (Auto) 8.0 H 4.8 H Neut % (Auto) 84.1 H Lymph % (Auto) 6.6 L 4.3 L Lymph # (Auto) 1.08 L 0.65 L Geary # (Auto) 1.14 H 0.96 H Immature Gran # 1.32 H 0.72 H Absolute Neutrophils 12.83 H 12.61 H Carbon Dioxide BUN 97 H Creatinine 3.4 H Glucose 124 H Albumin 2.7 L Albumin/Globulin Ratio 0.8 L Procalcitonin U Clyde Prot/Creat Ratio 09/27/22 09/26/22 05:54 11:35 WBC RBC Hgb Hct Plt Count Immature Gran % (Auto) Neut % (Auto) Lymph % (Auto) Lymph # (Auto) Geary # (Auto) Immature Gran # Absolute Neutrophils Carbon Dioxide 21 L BUN 88 H Creatinine 3.7 H Glucose 137 H Albumin 2.4 L Albumin/Globulin Ratio 0.6 L Procalcitonin U Clyde Prot/Creat Ratio 0.45 H Meds: Medications Albuterol Sulfate (Albuterol Sulfate 2.5 Mg/3 Ml Nebulizer) 2.5 mg NEB Q2HP PRN PRN Reason: Shortness Of Breath Albuterol/Ipratropium (Ipratropium/Albuterol 3 Ml Ampul.Neb) 3 ml NEB Q6HRT PRN PRN Reason: Dyspnea or wheezing Last Admin: 09/29/22 08:58 Dose: 3 ml Aspirin (Aspirin 81 Mg Tab.Chew) 81 mg PO DAILY [facility] Last Admin: 09/29/22 08:51 Dose: 81 mg Budesonide (Budesonide 0.5 Mg/2 Ml Ampul.Neb) 0.5 mg NEB Q12 [facility] Last Admin: 09/29/22 08:58 Dose: 0.5 mg Calcium/Vitamin D (Calcium W/Vit D3 500 Mg Tablet) 500 mg PO BID [facility] Last Admin: 09/29/22 08:51 Dose: 500 mg Cefazolin Sodium (Cefazolin 1 Gm Vial) 1 gm IV Q12H [facility]; Protocol Last Admin: 09/29/22 08:50 Dose: 1 gm Docusate Sodium (Docusate Sodium 100 Mg Capsule) 100 mg PO BID [facility] Last Admin: 09/29/22 08:51 Dose: 100 mg Heparin Sodium (Porcine) (Heparin 5,000 Unit/Ml Vial) 5,000 unit SQ Q12 [facility] Last Admin: 09/29/22 08:51 Dose: 5,000 unit Acetaminophen (Ofirmev) 1,000 mg in 100 mls @ 200 mls/hr IV TIDP PRN; Protocol PRN Reason: pain Last Infusion: 09/26/22 22:00 Dose: Infused Lactulose (Lactulose 20 Gm/30 Ml Oral.Taya) 10 gm PO DAILYP PRN PRN Reason: Constipation Lidocaine (Lidocaine 5 Gm Cream.Top) 5 gm TOPICAL TIDP PRN PRN Reason: Pain Last Admin: 09/27/22 21:54 Dose: 5 gm Lidocaine (Lidocaine Patch) 1 patch TOPICAL DAILY@1000 JYOTI Last Admin: 09/29/22 10:38 Dose: 1 patch Metoprolol Tartrate (Metoprolol Tartrate 50 Mg Tablet) 50 mg PO BID [facility] Last Admin: 09/29/22 08:51 Dose: 50 mg Metoprolol Tartrate (Metoprolol Tartrate 5 Mg/5 Ml Vial) 5 mg IV Q4HP PRN PRN Reason: Tachyarrhythmias Last Admin: 09/24/22 17:45 Dose: 2 mg Omeprazole (Omeprazole 20 Mg Capsule) 20 mg PO ACB [facility] Last Admin: 09/29/22 07:42 Dose: 20 mg Ondansetron HCl (Ondansetron 4 Mg/2 Ml Vial) 4 mg IV Q4HP PRN; Protocol PRN Reason: Nausea And Vomiting Last Admin: 09/28/22 07:34 Dose: 4 mg Oxycodone HCl (Oxycodone Ir 5 Mg Tablet) 5 mg PO Q4HP PRN; Protocol PRN Reason: Per Pain Protocol Last Admin: 09/28/22 20:35 Dose: 5 mg Tiotropium [place] [ Spiriva Respimat] 2. 5 Mcg/Act Inhaler 2 dose INH DAILY [facility] Last Admin: 09/29/22 08:51 Dose: Not Given Senna (Sennosides 1 Tablet) 2 tab PO HSP PRN PRN Reason: Constipation Last Admin: 09/28/22 20:30 Dose: 2 tab Simvastatin (Simvastatin 10 Mg Tablet) 10 mg PO HS JYOTI Last Admin: 09/28/22 20:30 Dose: 10 mg Sodium Chloride (0.9 % Sodium Chloride 10 Ml Syringe) 10 ml IV Q8 JYOTI Last Admin: 09/29/22 05:23 Dose: 10 ml A/P Narrative A/P Narrative: A: #Catheter associated complicated UTI/Pyelonephritis (E. coli): #E. coli bacteremia: 2/2 above #Acute hypoxic respiratory failure: improving -on 2.5L NC #Possible aspiration pneumonitis/pneumonia/atelectasis: #YEIMY on CKD III, probably ATN: gradually improving #volume overload: improved #Atrial flutter with RVR: resolved #Metabolic encephalopathy: 2/2 sepsis, improved #COPD exacerbation: improved #h/o Bladder stones #h/o Sigmoid colon stricture #Generalized weakness/Deconditioning #Hypertension/Dyslipidemia: #GERD: #Metastatic prostate cancer: on Casodex #Suprapubic catheter #Obstructive sleep apnea, does not tolerate CPAP: Plan: -Continue cefazolin, anticipate 14-days of antibiotic treatment for gram- negative bacteremia -Suprapubic urinary catheter replaced this hospitalization -Oxygen supplementation, wean as able. - -Home Spiriva, as needed DuoNebs and albuterol nebs. -Incentive spirometry -Monitor renal function, electrolytes. Consider IV fluids if BUN and creatinine increase. -Continue Lopressor 50 mg twice daily, as needed IV Lopressor for atrial fibrillation or atrial flutter with RVR. -Continue home Spiriva aspirin, simvastatin, omeprazole. -PT and OT. -pvc monitor -DVT prophylaxis: Heparin SQ CODE STATUS: DNR/DNI Time Spent With Patient Time: Total time spent is greater than 50% in coordination of care (as documented) at patient's floor/unit and/or counseling patient: QUALITY VTE Deep Vein Thrombosis/Pulmonary Embolism Present on Admission: No
[2022-09-29 16:56] LABS: Band Neutrophils % 27 % (0-10); Lymphocytes % 3 % (15-49); Monocytes % (Manual) 5 % (1-12); Platelet Estimate NORMAL (Normal); RBC Morphology NORMAL (Normal); Reactive Lymphocytes 5 % (0-2); Segmented Neutrophils % 60 % (38-78)
[2022-09-29] MEDS: LACTULOSE 20 GM/30 ML ORAL.SOL PO PRN (17:44)
[2022-09-29] MEDS: SIMVASTATIN 10 MG TABLET PO SCH (22:14)
[2022-09-29] MEDS: LIDOCAINE 5 GM CREAM.TOP TOPICAL PRN (22:14)
[2022-09-30] MEDS: 0.9 % SODIUM CHLORIDE 10 ML SYRINGE IV SCH ×3 (04:17→20:08)
[2022-09-30 06:42] LABS: Hematocrit 36.1 % (40.1-51.0); Hemoglobin 11.8 g/dL (13.7-17.5); Mean Cell Volume 90.7 fL (80.0-100.0); Mean Corpuscular HGB Conc 32.7 g/dL (31.0-36.0); Mean Platelet Volume 11.8 fL (8.8-12.5); Platelet Count 194 K/mcL (140-440); RBC 3.98 M/mcL (4.63-6.08); Red Cell Distribution Width 13.6 % (11.5-14.5)
[2022-09-30 07:03] LABS: ALT/SGPT < 5 U/L (<40); AST/SGOT 12 U/L (<40); Albumin 2.7 gm/dL (3.2-5.2); Albumin/Globulin Ratio 0.8 (1.0-2.3); Alkaline Phosphatase 84 U/L (39-117); Bilirubin,Direct < 0.2 mg/dL (0-0.3); Bilirubin,Total 0.3 mg/dL (0.1-1.0); Blood Urea Nitrogen 99 mg/dL (8-23); Calcium 9.1 mg/dL (8.6-10.4); Carbon Dioxide 28 mmol/L (22-30); Chloride 95 mmol/L (96-108); Globulin 3.3 gm/dL (2.2-3.7); Glomerular Filtration Rate 18; Glucose 111 mg/dL (70-105); Lactate Dehydrogenase 221 U/L (135-225); Phosphorous 4.1 mg/dL (2.5-4.5); Triglycerides 149 mg/dL (<150); Uric Acid 11.1 mg/dL (2.5-8.0)
[2022-09-30] MEDS: OMEPRAZOLE 20 MG CAPSULE PO SCH (07:29)
--- NOTE | 2022-09-30 07:43 | Internal Med Progress Note ---
SUBJECTIVE Subjective Patient information: Note initiated : 09/30/22 at 7:36 am Service Date, if different from initiated Date: [] Patient: Lalit Moyer a 87 y/o M admitted on 09/23/22. Chief Complaint: [] Interval history: Mr. 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 He went to his bed in normal state of health but woke up around 1 AM with an episode of vomiting. He had another couple of episodes of vomiting through the day and was feeling very weak and tired. Throughout the day family noted that p atient was somewhat lethargic, confused and stumbling over words. Patient felt some pressure and thought his suprapubic catheter was not draining however noted blood in the catheter. His p.o. intake was low he was not eating and was nauseous. Patient follows up with Dr. Obregon and his last visit was about a week ago when he had his suprapubic catheter changed. Patient denies fever, chills, abdominal pain, diarrhea, constipation, difficulty breathing, cardiac chest pain, heart palpitations, hematemesis, melena, hematochezia. On presentation patient was tachypneic with respiratory rate 31, tachycardia heart rate 113, he was hypoxic of 84% and required 2 L nasal cannula oxygen. Labs were remarkable for WBCs 27,000, hemoglobin 13.4. Lactic acid 4.1. Procalcitonin elevated at 14. Normal electrolytes. Creatinine 2.3 consistent with YEIMY. UA positive for leukocyte Estrace, RBC, WBC, bacteria. CT abdomen and pelvis showed some nonspecific inflammatory changes around left kidney and Gerota fascia extending into the left side of the pelvis. This may be secondary to passage of stone or known inflammatory process. Multiple bladder calculi were noted. Chest x-ray concerning for pneumonia formal read is pending. EKG showed sinus tachycardia ventricular rate 1122 bpm, some PVCs, no acute ST-T wave changes. 7/8. Overall feels well bit better. Reports always have some labored breathing from his COPD. Still hypotensive with blood pressure of 87/60, on IV fluids. Fluctuating between 4 and 8 L nasal cannula oxygen. While I was in the room I weaned it down to 3 L and he was still around 92%. Leukocytosis improved to 23,000 from 27, hemoglobin down to 11.7 from 13.4, but some element of hemodilution. Lactic acidosis cleared and down to 1.8 from 3.0 previously. Cr eatinine down to 2.1 from 2.3 yesterday. Chest x-ray from 09/23 reviewed. 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 CTA chest was obtained this morning and it showed bilateral pulmonary infiltrates, left base more than right. This could be pneumonia. Patient has moderate emphysema. 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 09/24. Patient appears tired, somewhat tachypneic, smiling and reports no issues. Patient became hypotensive last evening after receiving metoprolol for his tachycardia. He was given 250 cc bolus and blood pressure improved. Creatinine increased to 3.0 from 2.1 yesterday could be secondary to episode of hypotension. He has history of CKD stage III. Reviewed I's and O's. Patient is net positive over 4 L since admission. Echo from February 2020 reviewed. Preserved EF 55-60%, no diastolic dysfunction, no significant valvular dysfunction. Patient BNP is elevated at 8978. Chest x-ray obtained is showing pulmonary edema. Procalcitonin is down to 6 from 14 couple days ago. Blood culture from 09/22 growing gram-negative bacilli. Urine culture pending. 09/25. Yesterday evening, the patient went into atrial flutter with rapid ventricular response. Started oral Lopressor and IV Lopressor as needed. The patient converted back to normal sinus rhythm. After that, vitals remained essentially unchanged overnight, the patient continues to require 3 L/min oxygen supplementation. Urine culture grew pansensitive E. coli, blood culture grew pansensitive E. coli. Antibiotics consolidated to cefazolin. Echo showed LVEF 55 to 60%, unable to accurately assess left ventricular diastolic function due to abnormal rhythm, normal right ventricular size and function. Estimated pulmonary artery pressure of 52 mmHg, trace MR and AI. White blood cell count trending down however still elevated at 15.9. Creatinine increased from 3.3 yesterday to 3.6 today. Holding additional Lasix doses and monitoring volume status. Suprapubic Larsen catheter replaced today. 09/26. No significant events reported overnight, the patient continues to requir e 1.5 to 2 L/min nasal cannula oxygen supplementation. Upon examination, the patient's volume status is increasing now with bilateral pitting edema up to mid shins. Creatinine also increasing. White blood cell count increased slightly, procalcitonin level downtrending. Patient also has abdominal distention today, tympanic and mildly tender. 1 view abdominal x-ray did not show any acute changes. Started Lasix 60 mg IV twice daily. Discontinued prednisone as this may be contributing to fluid retention. 09/27. No significant events overnight, vitals unchanged, continues on 1 to 2 L/min oxygen supplementation. Leukocytosis improving. Renal function the same as yesterday. Urine protein creatinine mildly elevated at 0.45. Mental status has improved. Creatinine appears to have plateaued. Discussed CODE STATUS with the patient, his and child at bedside. The patient said he wished to be DNR DNI. CODE STATUS changed to DNR/DNI. Continue Lasix 60 mg IV twice daily today. 09/28. No significant events overnight, vital stable. Oxygen supplementation 1 L/min this morning. White blood cell count slightly increased to 16 however afebrile. Mental status has improved. Volume status has improved. Creatinine now downtrending, yesterday 3.7 and today 3.4. Discontinued Lasix and monitoring volume status. Continues on cefazolin. 09/29. 4 L nasal cannula oxygen overnight, afebrile and vitals stable. White blood cell count increased today, procalcitonin continues to trend down. Renal function is about the same as yesterday, BUN increased. Monitoring volume status, the patient is drinking fluids. Chest x-ray ordered today. Continues on cefazolin. 09/30 No overnight event or new complaints. Patient currently on 1.5 L nasal cannula with sats mid 90s. Is not typically on oxygen at home. We will trial off oxygen. Bandemia significant yesterday 27 now resolved and expect leukocytosis to follow suit on tomorrow labs. If no improvement then will repeat blood cul tures and look for alternative source of infection. Patient denies any pains or complaints including abdominal pain and no respiratory distress. Patient currently on cefazolin for pansensitive E. coli Review of Systems: Extremely difficult giving his severe hearing impairment. PHYSICAL EXAM General: Alert, Awake, No acute Distress Eyes/N/T: EOMI, no scleral icterus, Head/Neck: neck supple, full ROM, CV: RRR, No murmurs, Pulm: rales b/l, no wheezing, no respiratory distress, supp O2 Abd: soft, nontender, +BS x4 : Suprapubic urinary catheter. Ext: no clubbing/cyanosis, b/l LE edema now minimal, nontender Neuro: Alert, no focal deficits, moves all extremities, , sensations intact b/l upper/lower Psychiatric: Skin: warm/dry, normal color Constitutional Vitals: Vital Signs Temp Pulse Resp BP Pulse Ox O2 Del Method O2 Flow Rate 98.4 F 77 20 120/66 93 Nasal Cannula 2.5 09/30/22 04:00 09/30/22 04:00 09/30/22 04:00 09/30/22 04:00 09/30/22 04:00 09/30/22 04:00 09/30/22 04:00 Period Temp Pulse Resp BP Sys/Morales Pulse Ox O2 Del Method O2 Flow Rate Last 24 Hr 97.1 F-98.4 F 75-89 18-24 114-144/62-78 92-94 Nasal Cannula- Room Air 2.5-4 Intake and Output 09/29/22 09/30/22 09/30/22 19:59 03:59 11:59 Intake Total 550 440 Output Total 300 1200 Balance 250 -760 Weight 99.025 kg Intake & Output: Intake & Output 09/29/22 09/30/22 09/30/22 19:59 03:59 11:59 Intake Total 550 440 Output Total 300 1200 Balance 250 -760 Weight 99.025 kg Intake: IV 500 Sodium Chloride 0.9% 500 ml @ 500 Wide Open IV BOLUS ONE Rx#: [id number] Oral 50 440 Output: Urine Catheter Amount 300 1200 Other: Urine Appearance Clear Clear Urine Color Yellow Yellow OBJ DATA Labs 09/30/22 05:26 09/30/22 05:26 Labs: Abnormal Lab Results 09/30/22 09/30/22 09/29/22 05:26 05:26 05:27 WBC 22.0 H RBC 3.98 L Hgb 11.8 L Hct 36.1 L Immature Gran % (Auto) Neut % (Auto) Lymph % (Auto) Lymph # (Auto) [place] # (Auto) Band Neutrophils % Lymphocytes % Immature Gran # Absolute Neutrophils Reactive Lymphocytes Chloride 95 L Carbon Dioxide BUN 99 H Creatinine 3.0 H Glucose 111 H Uric Acid 11.1 H 12.7 H Magnesium 2.9 H Albumin 2.7 L Albumin/Globulin Ratio 0.8 L Procalcitonin 09/29/22 09/29/22 09/29/22 05:27 05:27 05:27 WBC RBC Hgb Hct Immature Gran % (Auto) Neut % (Auto) Lymph % (Auto) Lymph # (Auto) [place] # (Auto) Band Neutrophils % 27 H Lymphocytes % 3 L Immature Gran # Absolute Neutrophils Reactive Lymphocytes 5 H Chloride Carbon Dioxide BUN 107 H* Creatinine 3.5 H Glucose 136 H Uric Acid Magnesium Albumin 2.8 L Albumin/Globulin Ratio 0.8 L Procalcitonin 0.84 H 09/29/22 09/28/22 09/28/22 05:27 07:22 07:22 WBC 20.0 H 16.5 H RBC 4.27 L 4.31 L Hgb 12.7 L 12.9 L Hct 39.0 L 39.2 L Immature Gran % (Auto) 9.4 H 8.0 H Neut % (Auto) 78.9 H Lymph % (Auto) 6.3 L 6.6 L Lymph # (Auto) 1.25 L 1.08 L [place] # (Auto) 1.02 H 1.14 H Band Neutrophils % Lymphocytes % Immature Gran # 1.87 H 1.32 H Absolute Neutrophils 15.77 H 12.83 H Reactive Lymphocytes Chloride Carbon Dioxide BUN 97 H Creatinine 3.4 H Glucose 124 H Uric Acid Magnesium Albumin 2.7 L Albumin/Globulin Ratio 0.8 L Procalcitonin 09/27/22 05:54 WBC RBC Hgb Hct Immature Gran % (Auto) Neut % (Auto) Lymph % (Auto) Lymph # (Auto) [place] # (Auto) Band Neutrophils % Lymphocytes % Immature Gran # Absolute Neutrophils Reactive Lymphocytes Chloride Carbon Dioxide 21 L BUN 88 H Creatinine 3.7 H Glucose 137 H Uric Acid Magnesium Albumin 2.4 L Albumin/Globulin Ratio 0.6 L Procalcitonin Meds: Medications Albuterol Sulfate (Albuterol Sulfate 2.5 Mg/3 Ml Nebulizer) 2.5 mg NEB Q2HP PRN PRN Reason: Shortness Of Breath Albuterol/Ipratropium (Ipratropium/Albuterol 3 Ml Ampul.Neb) 3 ml NEB Q6HRT PRN PRN Reason: Dyspnea or wheezing Last Admin: 09/29/22 08:58 Dose: 3 ml Aspirin (Aspirin 81 Mg Tab.Chew) 81 mg PO DAILY [facility] Last Admin: 09/29/22 08:51 Dose: 81 mg Budesonide (Budesonide 0.5 Mg/2 Ml Ampul.Neb) 0.5 mg NEB Q12 JYOTI Last Admin: 09/29/22 20:11 Dose: 0.5 mg Calcium/Vitamin D (Calcium W/Vit D3 500 Mg Tablet) 500 mg PO BID [facility] Last Admin: 09/29/22 22:13 Dose: 500 mg Cefazolin Sodium (Cefazolin 1 Gm Vial) 1 gm IV Q12H [facility]; Protocol Last Admin: 09/29/22 22:14 Dose: 1 gm Docusate Sodium (Docusate Sodium 100 Mg Capsule) 100 mg PO BID [facility] Last Admin: 09/29/22 22:13 Dose: 100 mg Heparin Sodium (Porcine) (Heparin 5,000 Unit/Ml Vial) 5,000 unit SQ Q12 JYOTI Last Admin: 09/29/22 22:14 Dose: 5,000 unit Acetaminophen (Ofirmev) 1,000 mg in 100 mls @ 200 mls/hr IV TIDP PRN; Protocol PRN Reason: pain Last Infusion: 09/26/22 22:00 Dose: Infused Lactulose (Lactulose 20 Gm/30 Ml Oral.Taya) 10 gm PO DAILYP PRN PRN Reason: Constipation Last Admin: 09/29/22 17:44 Dose: 10 gm Lidocaine (Lidocaine 5 Gm Cream.Top) 5 gm TOPICAL TIDP PRN PRN Reason: Pain Last Admin: 09/29/22 22:14 Dose: 5 gm Lidocaine (Lidocaine Patch) 1 patch TOPICAL DAILY@1000 JYOTI Last Admin: 09/29/22 10:38 Dose: 1 patch Metoprolol Tartrate (Metoprolol Tartrate 50 Mg Tablet) 50 mg PO BID [facility] Last Admin: 09/29/22 22:14 Dose: 50 mg Metoprolol Tartrate (Metoprolol Tartrate 5 Mg/5 Ml Vial) 5 mg IV Q4HP PRN PRN Reason: Tachyarrhythmias Last Admin: 09/24/22 17:45 Dose: 2 mg Omeprazole (Omeprazole 20 Mg Capsule) 20 mg PO ACB JYOTI Last Admin: 09/30/22 07:29 Dose: 20 mg Ondansetron HCl (Ondansetron 4 Mg/2 Ml Vial) 4 mg IV Q4HP PRN; Protocol PRN Reason: Nausea And Vomiting Last Admin: 09/28/22 07:34 Dose: 4 mg Oxycodone HCl (Oxycodone Ir 5 Mg Tablet) 5 mg PO Q4HP PRN; Protocol PRN Reason: Per Pain Protocol Last Admin: 09/28/22 20:35 Dose: 5 mg Tiotropium [place] [ Spiriva Respimat] 2. 5 Mcg/Act Inhaler 2 dose INH DAILY [facility] Last Admin: 09/29/22 08:51 Dose: Not Given Senna (Sennosides 1 Tablet) 2 tab PO HSP PRN PRN Reason: Constipation Last Admin: 09/28/22 20:30 Dose: 2 tab Simvastatin (Simvastatin 10 Mg Tablet) 10 mg PO HS [facility] Last Admin: 09/29/22 22:14 Dose: 10 mg Sodium Chloride (0.9 % Sodium Chloride 10 Ml Syringe) 10 ml IV Q8 JYOTI Last Admin: 09/30/22 04:17 Dose: 10 ml A/P Narrative A/P Narrative: A: #Catheter associated complicated UTI/Pyelonephritis (E. coli): #E. coli bacteremia: 2/2 above #Sepsis: 2/2 above -leukocytosis w/bandemia, afebrile #Acute hypoxic respiratory failure: improving -CT with emphysema, calcified pleural plaques, b/l infiltrates LLL>R -on 1.5L NC #Possible aspiration pneumonitis/pneumonia/atelectasis: #YEIMY on CKD III, probably ATN: gradually improving #volume overload: improved #Atrial flutter with RVR: resolved #Metabolic encephalopathy: 2/2 sepsis, improved #COPD exacerbation: improved #h/o Bladder stones #h/o Sigmoid colon stricture #Generalized weakness/Deconditioning #Hypertension/Dyslipidemia: #GERD: #Metastatic prostate cancer: on Casodex #Suprapubic catheter #Obstructive sleep apnea, does not tolerate CPAP: Plan: -Continue cefazolin, anticipate 14-days of antibiotic treatment for gram- negative bacteremia -Suprapubic urinary catheter replaced this hospitalization -Oxygen supplementation, wean as able. -Home Spiriva, as needed DuoNebs and albuterol nebs. -Incentive spirometry -gentle IVF today -Monitor renal function, electrolytes. -Follow-up CBC -Continue Lopressor 50 mg twice daily, as needed IV Lopressor for atrial fibrillation or atrial flutter with RVR. -Continue home Spiriva aspirin, simvastatin, omeprazole. -PT and OT. -monitoring and evaluation advisor -DVT prophylaxis: Heparin SQ CODE STATUS: DNR/DNI Time Spent With Patient Time: Total time spent is greater than 50% in coordination of care (as documented) at patient's floor/unit and/or counseling patient: Subsequent: Total time with patient: 50 - 65 Minutes QUALITY VTE Deep Vein Thrombosis/Pulmonary Embolism Present on Admission: No
[2022-09-30] MEDS: METOPROLOL TARTRATE 50 MG TABLET PO SCH ×2 (08:23→20:08)
[2022-09-30] MEDS: ceFAZolin 1 GM VIAL IV SCH ×2 (08:23→20:07)
[2022-09-30] MEDS: Tiotropium Bromide [Spiriva Respimat] 2.5 mcg/act Inhaler INH SCH (08:23)
[2022-09-30] MEDS: 0.9 % SODIUM CHLORIDE 1,000 ML IV SCH ×2 (08:23→09:49)
[2022-09-30] MEDS: CALCIUM W/VIT D3 500 MG TABLET PO SCH ×2 (08:23→20:08)
[2022-09-30] MEDS: ASPIRIN 81 MG TAB.CHEW PO SCH (08:23)
[2022-09-30] MEDS: DOCUSATE SODIUM 100 MG CAPSULE PO SCH ×2 (08:23→19:55)
[2022-09-30] MEDS: HEPARIN 5,000 UNIT/ML VIAL SQ SCH ×2 (08:23→20:07)
[2022-09-30] MEDS: LACTULOSE 20 GM/30 ML ORAL.SOL PO PRN (08:24)
[2022-09-30 08:37] LABS: Band Neutrophils % 4 % (0-10); Lymphocytes % 8 % (15-49); Metamyelocytes % 4 %; Monocytes % (Manual) 4 % (1-12); Myelocytes % 4 %; Platelet Estimate NORMAL (Normal); Polychromasia FEW (None Seen); RBC Morphology ABNORMAL (Normal); Segmented Neutrophils % 76 % (38-78)
[2022-09-30] MEDS ORDERED: 0.9 % SODIUM CHLORIDE 500 ML IV SCH (09:20)
[2022-09-30] MEDS: BUDESONIDE 0.5 MG/2 ML AMPUL.NEB NEB SCH ×2 (09:22→20:10)
[2022-09-30] MEDS: IPRATROPIUM/ALBUTEROL 3 ML AMPUL.NEB NEB PRN ×2 (09:22→20:10)
[2022-09-30] MEDS: LIDOCAINE PATCH TOPICAL SCH (17:15)
[2022-09-30] MEDS: SIMVASTATIN 10 MG TABLET PO SCH (20:07)
[2022-10-01] MEDS: 0.9 % SODIUM CHLORIDE 10 ML SYRINGE IV SCH ×3 (06:42→22:29)
[2022-10-01 06:58] LABS: Hematocrit 36.4 % (40.1-51.0); Hemoglobin 11.5 g/dL (13.7-17.5); Mean Cell Volume 95.5 fL (80.0-100.0); Mean Corpuscular HGB Conc 31.6 g/dL (31.0-36.0); Mean Platelet Volume 11.4 fL (8.8-12.5); Platelet Count 194 K/mcL (140-440); RBC 3.81 M/mcL (4.63-6.08); Red Cell Distribution Width 13.8 % (11.5-14.5); WBC 19.4 K/mcL (4.5-11.0)
[2022-10-01 07:27] LABS: ALT/SGPT < 5 U/L (<40); AST/SGOT 16 U/L (<40); Albumin 2.3 gm/dL (3.2-5.2); Albumin/Globulin Ratio 0.6 (1.0-2.3); Alkaline Phosphatase 83 U/L (39-117); Bilirubin,Direct < 0.2 mg/dL (0-0.3); Bilirubin,Total 0.3 mg/dL (0.1-1.0); Blood Urea Nitrogen 91 mg/dL (8-23); Calcium 8.9 mg/dL (8.6-10.4); Carbon Dioxide 24 mmol/L (22-30); Chloride 99 mmol/L (96-108); Globulin 3.8 gm/dL (2.2-3.7); Glomerular Filtration Rate 19; Glucose 114 mg/dL (70-105); Lactate Dehydrogenase 324 U/L (135-225); Phosphorous 4.6 mg/dL (2.5-4.5); Triglycerides 153 mg/dL (<150); Uric Acid 10.1 mg/dL (2.5-8.0)
[2022-10-01 07:48] LABS: Band Neutrophils % 1 % (0-10); Eosinophils % (Manual) 1 % (0-7); Hypochromasia FEW (None Seen); Lymphocytes % 8 % (15-49); Metamyelocytes % 3 %; Monocytes % (Manual) 7 % (1-12); Myelocytes % 3 %; Platelet Estimate NORMAL (Normal); Polychromasia FEW (None Seen); RBC Morphology ABNORMAL (Normal); Segmented Neutrophils % 77 % (38-78)
--- NOTE | 2022-10-01 07:59 | Internal Med Progress Note ---
SUBJECTIVE Subjective Patient information: Note initiated : 10/01/22 at 7:54 am Service Date, if different from initiated Date: [] Patient: Lalit Moyer a 87 y/o M admitted on 09/23/22. Chief Complaint: [] Interval history: Mr. 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 He went to his bed in normal state of health but woke up around 1 AM with an episode of vomiting. He had another couple of episodes of vomiting through the day and was feeling very weak and tired. Throughout the day family noted that p atient was somewhat lethargic, confused and stumbling over words. Patient felt some pressure and thought his suprapubic catheter was not draining however noted blood in the catheter. His p.o. intake was low he was not eating and was nauseous. Patient follows up with Dr. Obregon and his last visit was about a week ago when he had his suprapubic catheter changed. Patient denies fever, chills, abdominal pain, diarrhea, constipation, difficulty breathing, cardiac chest pain, heart palpitations, hematemesis, melena, hematochezia. On presentation patient was tachypneic with respiratory rate 31, tachycardia heart rate 113, he was hypoxic of 84% and required 2 L nasal cannula oxygen. Labs were remarkable for WBCs 27,000, hemoglobin 13.4. Lactic acid 4.1. Procalcitonin elevated at 14. Normal electrolytes. Creatinine 2.3 consistent with YEIMY. UA positive for leukocyte Estrace, RBC, WBC, bacteria. CT abdomen and pelvis showed some nonspecific inflammatory changes around left kidney and Gerota fascia extending into the left side of the pelvis. This may be secondary to passage of stone or known inflammatory process. Multiple bladder calculi were noted. Chest x-ray concerning for pneumonia formal read is pending. EKG showed sinus tachycardia ventricular rate 1122 bpm, some PVCs, no acute ST-T wave changes. 7/8. Overall feels well bit better. Reports always have some labored breathing from his COPD. Still hypotensive with blood pressure of 87/60, on IV fluids. Fluctuating between 4 and 8 L nasal cannula oxygen. While I was in the room I weaned it down to 3 L and he was still around 92%. Leukocytosis improved to 23,000 from 27, hemoglobin down to 11.7 from 13.4, but some element of hemodilution. Lactic acidosis cleared and down to 1.8 from 3.0 previously. Cr eatinine down to 2.1 from 2.3 yesterday. Chest x-ray from 09/23 reviewed. 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 CTA chest was obtained this morning and it showed bilateral pulmonary infiltrates, left base more than right. This could be pneumonia. Patient has moderate emphysema. 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 09/24. Patient appears tired, somewhat tachypneic, smiling and reports no issues. Patient became hypotensive last evening after receiving metoprolol for his tachycardia. He was given 250 cc bolus and blood pressure improved. Creatinine increased to 3.0 from 2.1 yesterday could be secondary to episode of hypotension. He has history of CKD stage III. Reviewed I's and O's. Patient is net positive over 4 L since admission. Echo from February 2020 reviewed. Preserved EF 55-60%, no diastolic dysfunction, no significant valvular dysfunction. Patient BNP is elevated at 8978. Chest x-ray obtained is showing pulmonary edema. Procalcitonin is down to 6 from 14 couple days ago. Blood culture from 09/22 growing gram-negative bacilli. Urine culture pending. 09/25. Yesterday evening, the patient went into atrial flutter with rapid ventricular response. Started oral Lopressor and IV Lopressor as needed. The patient converted back to normal sinus rhythm. After that, vitals remained essentially unchanged overnight, the patient continues to require 3 L/min oxygen supplementation. Urine culture grew pansensitive E. coli, blood culture grew pansensitive E. coli. Antibiotics consolidated to cefazolin. Echo showed LVEF 55 to 60%, unable to accurately assess left ventricular diastolic function due to abnormal rhythm, normal right ventricular size and function. Estimated pulmonary artery pressure of 52 mmHg, trace MR and AI. White blood cell count trending down however still elevated at 15.9. Creatinine increased from 3.3 yesterday to 3.6 today. Holding additional Lasix doses and monitoring volume status. Suprapubic Larsen catheter replaced today. 09/26. No significant events reported overnight, the patient continues to requir e 1.5 to 2 L/min nasal cannula oxygen supplementation. Upon examination, the patient's volume status is increasing now with bilateral pitting edema up to mid shins. Creatinine also increasing. White blood cell count increased slightly, procalcitonin level downtrending. Patient also has abdominal distention today, tympanic and mildly tender. 1 view abdominal x-ray did not show any acute changes. Started Lasix 60 mg IV twice daily. Discontinued prednisone as this may be contributing to fluid retention. 09/27. No significant events overnight, vitals unchanged, continues on 1 to 2 L/min oxygen supplementation. Leukocytosis improving. Renal function the same as yesterday. Urine protein creatinine mildly elevated at 0.45. Mental status has improved. Creatinine appears to have plateaued. Discussed CODE STATUS with the patient, his and child at bedside. The patient said he wished to be DNR DNI. CODE STATUS changed to DNR/DNI. Continue Lasix 60 mg IV twice daily today. 09/28. No significant events overnight, vital stable. Oxygen supplementation 1 L/min this morning. White blood cell count slightly increased to 16 however afebrile. Mental status has improved. Volume status has improved. Creatinine now downtrending, yesterday 3.7 and today 3.4. Discontinued Lasix and monitoring volume status. Continues on cefazolin. 09/29. 4 L nasal cannula oxygen overnight, afebrile and vitals stable. White blood cell count increased today, procalcitonin continues to trend down. Renal function is about the same as yesterday, BUN increased. Monitoring volume status, the patient is drinking fluids. Chest x-ray ordered today. Continues on cefazolin. 09/30 No overnight event or new complaints. Patient currently on 1.5 L nasal cannula with sats mid 90s. Is not typically on oxygen at home. We will trial off oxygen. Bandemia significant yesterday 27 now resolved and expect leukocytosis to follow suit on tomorrow labs. If no improvement then will repeat blood cul tures and look for alternative source of infection. Patient denies any pains or complaints including abdominal pain and no respiratory distress. Patient currently on cefazolin for pansensitive E. coli 10/01 No overnight event or new complaints. Patient still on oxygen although will last recorded sat was 98% on 2 L. Son does state patient does have history of coughing or swallowing issues with food. Concerning for aspiration and no we will put in ST eval were not available on the weekends. Leukocytosis still quite high but slowly improving, bandemia resolved. BUN and creatinine still quite elevated but gradually improving. Uric acid lowering reflecting IV fluids received over the past couple days. Review of Systems: Extremely difficult giving his severe hearing impairment. PHYSICAL EXAM General: Alert, Awake, No acute Distress Eyes/N/T: EOMI, no scleral icterus, Head/Neck: neck supple, full ROM, CV: RRR, No murmurs, Pulm: clearing lung sounds b/l laterally, no wheezing, no respiratory distress, supp O2 Abd: soft, nontender, +BS x4 : Suprapubic urinary catheter. Ext: no clubbing/cyanosis, b/l LE edema now trace, nontender Neuro: Alert, no focal deficits, moves all extremities, , sensations intact b/l upper/lower Psychiatric: Skin: warm/dry, normal color Constitutional Vitals: Vital Signs Temp Pulse Resp BP Pulse Ox O2 Del Method O2 Flow Rate 98.3 F 84 18 107/49 94 Nasal Cannula 2.5 10/01/22 03:56 10/01/22 03:56 10/01/22 03:56 10/01/22 03:56 10/01/22 03:56 10/01/22 03:56 10/01/22 03:56 Period Temp Pulse Resp BP Sys/Morales Pulse Ox O2 Del Method O2 Flow Rate Last 24 Hr 97.4 F-98.6 F 74-90 17-26 107-139/49-72 89-95 High Flow Nasal Cannula-Room Air 1.5-2.5 Intake and Output 09/30/22 10/01/22 10/01/22 19:59 03:59 11:59 Intake Total 740 300 Output Total 1000 1038 Balance -260 -738 Weight 92.079 kg Intake & Output: Intake & Output 09/30/22 10/01/22 10/01/22 19:59 03:59 11:59 Intake Total 740 300 Output Total 1000 1038 Balance -260 -738 Weight 92.079 kg Intake: IV 500 Sodium Chloride 0.9% 500 ml @ 500 100 mls/hr IV .Q5H [facility] Rx#: [id number] Oral 240 300 Output: Urine Catheter Amount 1000 1038 Other: Urine Appearance Clear Cloudy Suprapubic Clear Urine Color Yellow Dark Yellow Suprapubic Yellow Urine Odor Suprapubic Normal Stool Size Moderate Stool Color Brown Stool Consistency Soft # of times incontinent of 1 Bowels OBJ DATA Labs 10/01/22 06:00 10/01/22 06:00 Labs: Abnormal Lab Results 10/01/22 10/01/22 09/30/22 06:00 06:00 05:26 WBC 19.4 H RBC 3.81 L Hgb 11.5 L Hct 36.4 L Immature Gran % (Auto) Neut % (Auto) Lymph % (Auto) Lymph # (Auto) [place] # (Auto) Band Neutrophils % Lymphocytes % 8 L Immature Gran # Absolute Neutrophils Reactive Lymphocytes RBC Morphology Abnormal A Polychromasia Few A Hypochromasia Few A Chloride 95 L BUN 91 H 99 H Creatinine 2.8 H 3.0 H Glucose 114 H 111 H Uric Acid 10.1 H 11.1 H Phosphorus 4.6 H Magnesium 3.0 H 2.9 H Lactate Dehydrogenase 324 H Albumin 2.3 L 2.7 L Globulin 3.8 H Albumin/Globulin Ratio 0.6 L 0.8 L Triglycerides 153 H Procalcitonin 09/30/22 09/29/22 09/29/22 05:26 05:27 05:27 WBC 22.0 H RBC 3.98 L Hgb 11.8 L Hct 36.1 L Immature Gran % (Auto) Neut % (Auto) Lymph % (Auto) Lymph # (Auto) [place] # (Auto) Band Neutrophils % 27 H Lymphocytes % 8 L 3 L Immature Gran # Absolute Neutrophils Reactive Lymphocytes 5 H RBC Morphology Abnormal A Polychromasia Few A Hypochromasia Chloride BUN Creatinine Glucose Uric Acid 12.7 H Phosphorus Magnesium Lactate Dehydrogenase Albumin Globulin Albumin/Globulin Ratio Triglycerides Procalcitonin 09/29/22 09/29/22 09/29/22 05:27 05:27 05:27 WBC 20.0 H RBC 4.27 L Hgb 12.7 L Hct 39.0 L Immature Gran % (Auto) 9.4 H Neut % (Auto) 78.9 H Lymph % (Auto) 6.3 L Lymph # (Auto) 1.25 L [place] # (Auto) 1.02 H Band Neutrophils % Lymphocytes % Immature Gran # 1.87 H Absolute Neutrophils 15.77 H Reactive Lymphocytes RBC Morphology Polychromasia Hypochromasia Chloride BUN 107 H* Creatinine 3.5 H Glucose 136 H Uric Acid Phosphorus Magnesium Lactate Dehydrogenase Albumin 2.8 L Globulin Albumin/Globulin Ratio 0.8 L Triglycerides Procalcitonin 0.84 H 09/28/22 09/28/22 07:22 07:22 WBC 16.5 H RBC 4.31 L Hgb 12.9 L Hct 39.2 L Immature Gran % (Auto) 8.0 H Neut % (Auto) Lymph % (Auto) 6.6 L Lymph # (Auto) 1.08 L [place] # (Auto) 1.14 H Band Neutrophils % Lymphocytes % Immature Gran # 1.32 H Absolute Neutrophils 12.83 H Reactive Lymphocytes RBC Morphology Polychromasia Hypochromasia Chloride BUN 97 H Creatinine 3.4 H Glucose 124 H Uric Acid Phosphorus Magnesium Lactate Dehydrogenase Albumin 2.7 L Globulin Albumin/Globulin Ratio 0.8 L Triglycerides Procalcitonin Meds: Medications Albuterol Sulfate (Albuterol Sulfate 2.5 Mg/3 Ml Nebulizer) 2.5 mg NEB Q2HP PRN PRN Reason: Shortness Of Breath Albuterol/Ipratropium (Ipratropium/Albuterol 3 Ml Ampul.Neb) 3 ml NEB Q6HRT PRN PRN Reason: Dyspnea or wheezing Last Admin: 09/30/22 20:10 Dose: 3 ml Aspirin (Aspirin 81 Mg Tab.Chew) 81 mg PO DAILY [facility] Last Admin: 09/30/22 08:23 Dose: 81 mg Budesonide (Budesonide 0.5 Mg/2 Ml Ampul.Neb) 0.5 mg NEB Q12 JYOTI Last Admin: 09/30/22 20:10 Dose: 0.5 mg Calcium/Vitamin D (Calcium W/Vit D3 500 Mg Tablet) 500 mg PO BID [facility] Last Admin: 09/30/22 20:08 Dose: 500 mg Cefazolin Sodium (Cefazolin 1 Gm Vial) 1 gm IV Q12H [facility]; Protocol Last Admin: 09/30/22 20:07 Dose: 1 gm Docusate Sodium (Docusate Sodium 100 Mg Capsule) 100 mg PO BID [facility] Last Admin: 09/30/22 19:55 Dose: Not Given Heparin Sodium (Porcine) (Heparin 5,000 Unit/Ml Vial) 5,000 unit SQ Q12 [facility] Last Admin: 09/30/22 20:07 Dose: 5,000 unit Acetaminophen (Ofirmev) 1,000 mg in 100 mls @ 200 mls/hr IV TIDP PRN; Protocol PRN Reason: pain Last Infusion: 09/26/22 22:00 Dose: Infused Lactulose (Lactulose 20 Gm/30 Ml Oral.Taya) 10 gm PO DAILYP PRN PRN Reason: Constipation Last Admin: 09/30/22 08:24 Dose: 10 gm Lidocaine (Lidocaine 5 Gm Cream.Top) 5 gm TOPICAL TIDP PRN PRN Reason: Pain Last Admin: 09/29/22 22:14 Dose: 5 gm Lidocaine (Lidocaine Patch) 1 patch TOPICAL DAILY@1000 JYOTI Last Admin: 09/30/22 17:15 Dose: Not Given Metoprolol Tartrate (Metoprolol Tartrate 50 Mg Tablet) 50 mg PO BID [facility] Last Admin: 09/30/22 20:08 Dose: 50 mg Metoprolol Tartrate (Metoprolol Tartrate 5 Mg/5 Ml Vial) 5 mg IV Q4HP PRN PRN Reason: Tachyarrhythmias Last Admin: 09/24/22 17:45 Dose: 2 mg Omeprazole (Omeprazole 20 Mg Capsule) 20 mg PO ACB [facility] Last Admin: 09/30/22 07:29 Dose: 20 mg Ondansetron HCl (Ondansetron 4 Mg/2 Ml Vial) 4 mg IV Q4HP PRN; Protocol PRN Reason: Nausea And Vomiting Last Admin: 09/28/22 07:34 Dose: 4 mg Oxycodone HCl (Oxycodone Ir 5 Mg Tablet) 5 mg PO Q4HP PRN; Protocol PRN Reason: Per Pain Protocol Last Admin: 09/28/22 20:35 Dose: 5 mg Tiotropium Negley [ Spiriva Respimat] 2. 5 Mcg/Act Inhaler 2 dose INH DAILY [facility] Last Admin: 09/30/22 08:23 Dose: Not Given Senna (Sennosides 1 Tablet) 2 tab PO HSP PRN PRN Reason: Constipation Last Admin: 09/28/22 20:30 Dose: 2 tab Simvastatin (Simvastatin 10 Mg Tablet) 10 mg PO HS [facility] Last Admin: 09/30/22 20:07 Dose: 10 mg Sodium Chloride (0.9 % Sodium Chloride 10 Ml Syringe) 10 ml IV Q8 JYOTI Last Admin: 10/01/22 06:42 Dose: 10 ml A/P Narrative A/P Narrative: A: #Catheter associated complicated UTI/Pyelonephritis (E. coli): #E. coli bacteremia: 2/2 above #Sepsis: 2/2 above -leukocytosis w/bandemia slowly improving, afebrile #Acute hypoxic respiratory failure: improving -CT with emphysema, calcified pleural plaques, b/l infiltrates LLL>R. f/u cxr 09/29 improved -on 1.5-2.5L NC #Possible aspiration pneumonitis/pneumonia/atelectasis: #YEIMY on CKD III, probably ATN: gradually improving #volume overload: improved #Atrial flutter with RVR: resolved #Metabolic encephalopathy: 2/2 sepsis, improved #COPD exacerbation: improved #h/o Bladder stones #h/o Sigmoid colon stricture #Generalized weakness/Deconditioning #Hypertension/Dyslipidemia: #GERD: #Metastatic prostate cancer: on Casodex #Suprapubic catheter #Obstructive sleep apnea, does not tolerate CPAP: Plan: -Continue cefazolin, anticipate 14-days of antibiotic treatment for e.coli bacteremia -Suprapubic urinary catheter replaced this hospitalization -Oxygen supplementation, wean as able. -Home Spiriva, as needed DuoNebs and albuterol nebs. -Incentive spirometry -Monitor renal function, electrolytes. -Follow-up CBC -Continue Lopressor 50 mg twice daily, as needed IV Lopressor for atrial fibrillation or atrial flutter with RVR. -Continue home Spiriva aspirin, simvastatin, omeprazole. -PT and OT. ST eval -phototypesetting equipment monitor -DVT prophylaxis: Heparin SQ CODE STATUS: DNR/DNI Time Spent With Patient Time: Total time spent is greater than 50% in coordination of care (as documented) at patient's floor/unit and/or counseling patient: Subsequent: Total time with patient: 50 - 65 Minutes QUALITY VTE Deep Vein Thrombosis/Pulmonary Embolism Present on Admission: No
[2022-10-01] MEDS: OMEPRAZOLE 20 MG CAPSULE PO SCH (08:01)
[2022-10-01] MEDS: IPRATROPIUM/ALBUTEROL 3 ML AMPUL.NEB NEB PRN ×2 (09:26→20:24)
[2022-10-01] MEDS: BUDESONIDE 0.5 MG/2 ML AMPUL.NEB NEB SCH ×2 (09:26→20:23)
[2022-10-01] MEDS: HEPARIN 5,000 UNIT/ML VIAL SQ SCH ×2 (10:05→22:29)
[2022-10-01] MEDS: METOPROLOL TARTRATE 50 MG TABLET PO SCH ×2 (10:05→22:30)
[2022-10-01] MEDS: ceFAZolin 1 GM VIAL IV SCH ×2 (10:05→22:29)
[2022-10-01] MEDS: CALCIUM W/VIT D3 500 MG TABLET PO SCH ×2 (10:06→22:30)
[2022-10-01] MEDS: DOCUSATE SODIUM 100 MG CAPSULE PO SCH ×2 (10:06→22:30)
[2022-10-01] MEDS: Tiotropium Bromide [Spiriva Respimat] 2.5 mcg/act Inhaler INH SCH (10:06)
[2022-10-01] MEDS: ASPIRIN 81 MG TAB.CHEW PO SCH (10:06)
[2022-10-01] MEDS: LIDOCAINE PATCH TOPICAL SCH (10:07)
--- NOTE | 2022-10-01 10:34 | Discharge Summary ---
Discharge Provider Provider IMPORTANT FOLLOW-UP INFORMATION FOR PCP: Patient information: Note initiated : 10/01/22 at 10:31 am Service Date, if different from initiated Date: [] Patient: Lalit Moyer 87 y/o M admitted on 09/23/22. Chief Complaint: [] Date of admission: 09/23/22 00:49 Discharge date: 10/03/22 Primary care physician: Daniel Chau DO Consults: 09/22/22 Consult to Physician [CONS] Stat Comment: Consulting Provider: Baldomero David Reason For Exam: Physician to Consult COURSE Hospital Course Hospital course: Interval history: Mr. 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 He went to his bed in normal state of health but woke up around 1 AM with an episode of vomiting. He had another couple of episodes of vomiting through the day and was feeling very weak and tired. Throughout the day family noted that p atient was somewhat lethargic, confused and stumbling over words. Patient felt some pressure and thought his suprapubic catheter was not draining however noted blood in the catheter. His p.o. intake was low he was not eating and was nauseous. Patient follows up with Dr. Obregon and his last visit was about a week ago when he had his suprapubic catheter changed. Patient denies fever, chills, abdominal pain, diarrhea, constipation, difficulty breathing, cardiac chest pain, heart palpitations, hematemesis, melena, hematochezia. On presentation patient was tachypneic with respiratory rate 31, tachycardia heart rate 113, he was hypoxic of 84% and required 2 L nasal cannula oxygen. Labs were remarkable for WBCs 27,000, hemoglobin 13.4. Lactic acid 4.1. Procalcitonin elevated at 14. Normal electrolytes. Creatinine 2.3 consistent with YEIMY. UA positive for leukocyte Estrace, RBC, WBC, bacteria. CT abdomen and pelvis showed some nonspecific inflammatory changes around left kidney and Gerota fascia extending into the left side of the pelvis. This may be secondary to passage of stone or known inflammatory process. Multiple bladder calculi were noted. Chest x-ray concerning for pneumonia formal read is pending. EKG showed sinus tachycardia ventricular rate 1122 bpm, some PVCs, no acute ST-T wave changes. 09/23. Overall feels well bit better. Reports always have some labored breathing from his COPD. Still hypotensive with blood pressure of 87/60, on IV fluids. Fluctuating between 4 and 8 L nasal cannula oxygen. While I was in the room I weaned it down to 3 L and he was still around 92%. Leukocytosis improved to 23,000 from 27, hemoglobin down to 11.7 from 13.4, but some element of hemodilution. Lactic acidosis cleared and down to 1.8 from 3.0 previously. Cr eatinine down to 2.1 from 2.3 yesterday. Chest x-ray from 09/23 reviewed. 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 CTA chest was obtained this morning and it showed bilateral pulmonary infiltrates, left base more than right. This could be pneumonia. Patient has moderate emphysema. 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 09/24. Patient appears tired, somewhat tachypneic, smiling and reports no issues. Patient became hypotensive last evening after receiving metoprolol for his tachycardia. He was given 250 cc bolus and blood pressure improved. Creatinine increased to 3.0 from 2.1 yesterday could be secondary to episode of hypotension. He has history of CKD stage III. Reviewed I's and O's. Patient is net positive over 4 L since admission. Echo from February 2020 reviewed. Preserved EF 55-60%, no diastolic dysfunction, no significant valvular dysfunction. Patient BNP is elevated at 8978. Chest x-ray obtained is showing pulmonary edema. Procalcitonin is down to 6 from 14 couple days ago. Blood culture from 09/22 growing gram-negative bacilli. Urine culture pending. 09/25. Yesterday evening, the patient went into atrial flutter with rapid ventricular response. Started oral Lopressor and IV Lopressor as needed. The patient converted back to normal sinus rhythm. After that, vitals remained essentially unchanged overnight, the patient continues to require 3 L/min oxygen supplementation. Urine culture grew pansensitive E. coli, blood culture grew pansensitive E. coli. Antibiotics consolidated to cefazolin. Echo showed LVEF 55 to 60%, unable to accurately assess left ventricular diastolic function due to abnormal rhythm, normal right ventricular size and function. Estimated pulmonary artery pressure of 52 mmHg, trace MR and AI. White blood cell count trending down however still elevated at 15.9. Creatinine increased from 3.3 yesterday to 3.6 today. Holding additional Lasix doses and monitoring volume status. Suprapubic Larsen catheter replaced today. 09/26. No significant events reported overnight, the patient continues to requir e 1.5 to 2 L/min nasal cannula oxygen supplementation. Upon examination, the patient's volume status is increasing now with bilateral pitting edema up to mid shins. Creatinine also increasing. White blood cell count increased slightly, procalcitonin level downtrending. Patient also has abdominal distention today, tympanic and mildly tender. 1 view abdominal x-ray did not show any acute changes. Started Lasix 60 mg IV twice daily. Discontinued prednisone as this may be contributing to fluid retention. 09/27. No significant events overnight, vitals unchanged, continues on 1 to 2 L/min oxygen supplementation. Leukocytosis improving. Renal function the same as yesterday. Urine protein creatinine mildly elevated at 0.45. Mental status has improved. Creatinine appears to have plateaued. Discussed CODE STATUS with the patient, his and child at bedside. The patient said he wished to be DNR DNI. CODE STATUS changed to DNR/DNI. Continue Lasix 60 mg IV twice daily today. 09/28. No significant events overnight, vital stable. Oxygen supplementation 1 L/min this morning. White blood cell count slightly increased to 16 however afebrile. Mental status has improved. Volume status has improved. Creatinine now downtrending, yesterday 3.7 and today 3.4. Discontinued Lasix and monitoring volume status. Continues on cefazolin. 09/29. 4 L nasal cannula oxygen overnight, afebrile and vitals stable. White blood cell count increased today, procalcitonin continues to trend down. Renal function is about the same as yesterday, BUN increased. Monitoring volume status, the patient is drinking fluids. Chest x-ray ordered today. Continues on cefazolin. 09/30 No overnight event or new complaints. Patient currently on 1.5 L nasal cannula with sats mid 90s. Is not typically on oxygen at home. We will trial off oxygen. Bandemia significant yesterday 27 now resolved and expect leukocytosis to follow suit on tomorrow labs. If no improvement then will repeat blood cul tures and look for alternative source of infection. Patient denies any pains or complaints including abdominal pain and no respiratory distress. Patient currently on cefazolin for pansensitive E. coli 10/01 No overnight event or new complaints. Patient still on oxygen although will last recorded sat was 98% on 2 L. Son does state patient does have history of coughing or swallowing issues with food. Concerning for aspiration and no we will put in ST eval were not available on the weekends. Leukocytosis still quite high but slowly improving, bandemia resolved. BUN and creatinine still quite elevated but gradually improving. Uric acid lowering reflecting IV fluids received over the past couple days. 10/02 and daughter at bedside today. Patient does not have hearing aids in today. Patient was on room air yesterday from noon to earlier this morning and is currently on 1.5 L. Leukocytosis slowly improving. BUN and creatinine slightly down. Slow to recovery. 10/03 Does complain about being weak and still having a cough. But otherwise no new complaints overnight events. Creatinine and leukocytosis continue to improve. Patient high risk for readmission given age and comorbidities A: #Catheter associated complicated UTI/Pyelonephritis (E. coli): #E. coli bacteremia: 2/2 above #Sepsis: 2/2 above #Acute hypoxic respiratory failure: improving -CT with emphysema, calcified pleural plaques, b/l infiltrates LLL>R. f/u cxr 09/29 improved #Possible aspiration pneumonitis/pneumonia/atelectasis: #YEIMY on CKD III, probably ATN: gradually improving #volume overload: improved #Atrial flutter with RVR: resolved #Metabolic encephalopathy: 2/2 sepsis, improved #COPD exacerbation: improved #h/o Bladder stones #h/o Sigmoid colon stricture #Generalized weakness/Deconditioning #Hypertension/Dyslipidemia: #GERD: #Metastatic prostate cancer: on Casodex #Suprapubic catheter #Obstructive sleep apnea, does not tolerate CPAP: Plan: -14-day of antibiotic treatment for e.coli bacteremia in setting of suprapubic cath -Suprapubic urinary catheter replaced this hospitalization -Oxygen supplementation, wean as able Discharge diagnosis: catheter associated UTI pyelonephritis E. coli bacteremia sepsis hypoxia a Secondary discharge diagnosis: suspected aspiration pneumonitis versus pneumonia CKD volume overload a flutter with RVR episode cephalopathy COPD generalized weakness deconditioning hypertension GERD metastatic prostate cancer suprapubic catheter ROMAN Time Spent with Patient Time attestation: Total time spent providing and/or coordinating discharge services: Time spent: Greater than 30 minutes EXAM Constitutional Vitals: Temp Pulse Resp BP Pulse Ox O2 Del Method O2 Flow Rate 97.8 F 79 20 135/58 98 Nasal Cannula 2 10/01/22 08:00 10/01/22 09:33 10/01/22 09:33 10/01/22 08:00 10/01/22 09:33 10/01/22 09:33 10/01/22 09:33 Discharge Data Data Completed and Pending Labs on day of discharge: Labs from last 24 hours 10/01/22 10/01/22 10/01/22 06:00 06:00 06:00 WBC 19.4 H RBC 3.81 L Hgb 11.5 L Hct 36.4 L MCV 95.5 MCH 30.2 MCHC 31.6 RDW 13.8 Plt Count 194 MPV 11.4 Seg Neutrophils % 77 Band Neutrophils % 1 Lymphocytes % 8 L Monocytes % (Manual) 7 Eosinophils % (Manual) 1 Metamyelocytes % 3 Myelocytes % 3 Platelet Estimate Normal RBC Morphology Abnormal A Polychromasia Few A Hypochromasia Few A Sodium 136 Potassium 4.5 Chloride 99 Carbon Dioxide 24 Anion Gap 13.0 BUN 91 H Creatinine 2.8 H GFR Calculation 19 Glucose 114 H Uric Acid 10.1 H Calcium 8.9 Phosphorus 4.6 H Magnesium 3.0 H Total Bilirubin 0.3 Direct Bilirubin < 0.2 GGT 28 AST 16 ALT < 5 Alkaline Phosphatase 83 Lactate Dehydrogenase 324 H NT-Pro-B Natriuret Pep Pending Total Protein 6.1 Albumin 2.3 L Globulin 3.8 H Albumin/Globulin Ratio 0.6 L Triglycerides 153 H Discharge Plan Patient/Caregiver Discharge Instructions Activity: increase activity as tolerated Diet: Regular Diet Prescriptions: New cefpodoxime 200 mg tablet 400 mg PO DAILY Qty: 3 0RF Rx Instructions: must administer with a meal/food Continued omeprazole 20 mg capsule,delayed release(DR/EC) 20 mg PO QDAY Qty: 90 3RF simvastatin 10 mg tablet 10 mg PO QPM Qty: 90 3RF Spiriva Respimat 2.5 mcg/actuation mist 2 puff inhalation QAM Qty: 4 12RF silver sulfadiazine 1 % cream 1 applic topical BID Qty: 50 2RF Rx Instructions: apply to painful burning area as needed (penis, anal fissure, catheter stoma) albuterol sulfate 90 mcg/actuation HFA aerosol inhaler 2 puff INHALATION Q6H PRN (Reason: shortness of breath or wheezing) Qty: 18 6RF omega-3 fatty acids 1,000 mg capsule 1,000 mg PO BID polyethylene glycol 3350 [Miralax] 17 gram/dose powder 17 g PO QDAY ibuprofen 200 mg tablet 400 mg PO QDAY aspirin 81 mg tablet,delayed release (DR/EC) 81 mg PO QDAY acetaminophen 500 mg tablet 1,000 mg PO QDAY PRN (Reason: Pain) (DME) Handicap Placard See Rx Instructions .Route .MEDSUPPLY Qty: 1 0RF Rx Instructions: Patient cannot walk 200 feet without stopping to rest or must use assistive device. calcium carbonate-vitamin D3 1 EACH tablet 1 tab PO BID diphenhydramine HCl 25 mg Capsule 25 mg PO QAM lidocaine HCl [Aspercreme (lidocaine HCl)] 4 % Cream 1 applic TOPICAL TID PRN (Reason: Pain) bicalutamide [Casodex] 50 mg tablet 50 mg PO QDAY Follow Up Plan Follow up with: Daniel Chau DO [Primary Care Provider] - Patient Disposition: Xfer SNF Prognosis: Fair Rehab Potential: Fair I certify that the patient requires SNF services: Yes Overall status at discharge: patient is progressing back to baseline Discharge Orders: Discharge Order (Routine); Ordered 10/03/22 Ordered By: Sanjay Mosley [facility] Deep Vein Thrombosis/Pulmonary Embolism Present on Admission: No
[2022-10-01 11:40] LABS: Appearance,Urine CLOUDY (Clear); Bacteria,Urine FEW /hpf (0); Bilirubin,Urine Negative (Negative); Color,Urine YELLOW; Culture Indicated,Urine yes; Glucose,Urine (UA) Negative (Negative); Ketones,Urine Negative (Negative); Leukocyte Esterase,Urine 500 /uL (Negative); Nitrate,Urine Negative (Negative); Protein,Urine 30 mg/dL (Negative); Specific Gravity,Urine 1.012 (1.000-1.035); Urine Blood >=1.0 mg/dL (Negative); Urine RBC 22 /hpf (0-3); Urine Squamous Epithelial Cell 0 /hpf (0-4); Urine WBC > 182 /hpf (0-4); Urobilinogen,Urine Negative
[2022-10-01 12:18] LABS: Sodium, Urine Random 26 mmol/L
[2022-10-01] MEDS: SIMVASTATIN 10 MG TABLET PO SCH (22:30)
[2022-10-01] MEDS: LIDOCAINE 5 GM CREAM.TOP TOPICAL PRN (22:30)
[2022-10-02] MEDS: 0.9 % SODIUM CHLORIDE 10 ML SYRINGE IV SCH ×3 (05:57→21:04)
[2022-10-02 06:11] LABS: Basophils # (Auto) 0.05 K/mcL (0.00-0.30); Basophils % (Auto) 0.3 % (0.0-2.0); Eosinophils # (Auto) 0.07 K/mcL (0.00-0.70); Eosinophils % (Auto) 0.4 % (0.0-7.0); Hematocrit 33.6 % (40.1-51.0); Hemoglobin 11.2 g/dL (13.7-17.5); Lymphocytes # (Auto) 0.94 K/mcL (1.50-4.80); Lymphocytes % (Auto) 5.6 % (15.5-49.0); Mean Cell Volume 90.1 fL (80.0-100.0); Mean Corpuscular HGB Conc 33.3 g/dL (31.0-36.0); Mean Platelet Volume 11.3 fL (8.8-12.5); Monocytes % (Auto) 6.5 % (1.0-12.0); Neutrophils % (Auto) 78.7 % (38.0-78.0); Platelet Count 234 K/mcL (140-440); RBC 3.73 M/mcL (4.63-6.08); Red Cell Distribution Width 13.6 % (11.5-14.5); WBC 16.9 K/mcL (4.5-11.0)
[2022-10-02 06:28] LABS: ALT/SGPT < 5 U/L (<40); AST/SGOT 20 U/L (<40); Albumin 2.5 gm/dL (3.2-5.2); Albumin/Globulin Ratio 0.7 (1.0-2.3); Alkaline Phosphatase 88 U/L (39-117); Bilirubin,Direct < 0.2 mg/dL (0-0.3); Bilirubin,Total 0.3 mg/dL (0.1-1.0); Blood Urea Nitrogen 85 mg/dL (8-23); Calcium 8.6 mg/dL (8.6-10.4); Carbon Dioxide 25 mmol/L (22-30); Chloride 95 mmol/L (96-108); Globulin 3.7 gm/dL (2.2-3.7); Glomerular Filtration Rate 21; Glucose 120 mg/dL (70-105); Lactate Dehydrogenase 354 U/L (135-225); Phosphorous 4.4 mg/dL (2.5-4.5); Triglycerides 153 mg/dL (<150); Uric Acid 9.5 mg/dL (2.5-8.0)
[2022-10-02] MEDS: BUDESONIDE 0.5 MG/2 ML AMPUL.NEB NEB SCH ×2 (07:15→19:33)
[2022-10-02] MEDS: IPRATROPIUM/ALBUTEROL 3 ML AMPUL.NEB NEB PRN ×3 (07:15→19:33)
--- NOTE | 2022-10-02 07:20 | EKG ---
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
--- NOTE | 2022-10-02 07:32 | Internal Med Progress Note ---
SUBJECTIVE Subjective Patient information: Note initiated : 10/02/22 at 7:29 am Service Date, if different from initiated Date: [] Patient: Lalit Moyer a 87 y/o M admitted on 09/23/22. Chief Complaint: [] Interval history: Mr. 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 He went to his bed in normal state of health but woke up around 1 AM with an episode of vomiting. He had another couple of episodes of vomiting through the day and was feeling very weak and tired. Throughout the day family noted that p atient was somewhat lethargic, confused and stumbling over words. Patient felt some pressure and thought his suprapubic catheter was not draining however noted blood in the catheter. His p.o. intake was low he was not eating and was nauseous. Patient follows up with Dr. Obregon and his last visit was about a week ago when he had his suprapubic catheter changed. Patient denies fever, chills, abdominal pain, diarrhea, constipation, difficulty breathing, cardiac chest pain, heart palpitations, hematemesis, melena, hematochezia. On presentation patient was tachypneic with respiratory rate 31, tachycardia heart rate 113, he was hypoxic of 84% and required 2 L nasal cannula oxygen. Labs were remarkable for WBCs 27,000, hemoglobin 13.4. Lactic acid 4.1. Procalcitonin elevated at 14. Normal electrolytes. Creatinine 2.3 consistent with YEIMY. UA positive for leukocyte Estrace, RBC, WBC, bacteria. CT abdomen and pelvis showed some nonspecific inflammatory changes around left kidney and Gerota fascia extending into the left side of the pelvis. This may be secondary to passage of stone or known inflammatory process. Multiple bladder calculi were noted. Chest x-ray concerning for pneumonia formal read is pending. EKG showed sinus tachycardia ventricular rate 1122 bpm, some PVCs, no acute ST-T wave changes. 7/8. Overall feels well bit better. Reports always have some labored breathing from his COPD. Still hypotensive with blood pressure of 87/60, on IV fluids. Fluctuating between 4 and 8 L nasal cannula oxygen. While I was in the room I weaned it down to 3 L and he was still around 92%. Leukocytosis improved to 23,000 from 27, hemoglobin down to 11.7 from 13.4, but some element of hemodilution. Lactic acidosis cleared and down to 1.8 from 3.0 previously. Cr eatinine down to 2.1 from 2.3 yesterday. Chest x-ray from 09/23 reviewed. 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 CTA chest was obtained this morning and it showed bilateral pulmonary infiltrates, left base more than right. This could be pneumonia. Patient has moderate emphysema. 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 09/24. Patient appears tired, somewhat tachypneic, smiling and reports no issues. Patient became hypotensive last evening after receiving metoprolol for his tachycardia. He was given 250 cc bolus and blood pressure improved. Creatinine increased to 3.0 from 2.1 yesterday could be secondary to episode of hypotension. He has history of CKD stage III. Reviewed I's and O's. Patient is net positive over 4 L since admission. Echo from February 2020 reviewed. Preserved EF 55-60%, no diastolic dysfunction, no significant valvular dysfunction. Patient BNP is elevated at 8978. Chest x-ray obtained is showing pulmonary edema. Procalcitonin is down to 6 from 14 couple days ago. Blood culture from 09/22 growing gram-negative bacilli. Urine culture pending. 09/25. Yesterday evening, the patient went into atrial flutter with rapid ventricular response. Started oral Lopressor and IV Lopressor as needed. The patient converted back to normal sinus rhythm. After that, vitals remained essentially unchanged overnight, the patient continues to require 3 L/min oxygen supplementation. Urine culture grew pansensitive E. coli, blood culture grew pansensitive E. coli. Antibiotics consolidated to cefazolin. Echo showed LVEF 55 to 60%, unable to accurately assess left ventricular diastolic function due to abnormal rhythm, normal right ventricular size and function. Estimated pulmonary artery pressure of 52 mmHg, trace MR and AI. White blood cell count trending down however still elevated at 15.9. Creatinine increased from 3.3 yesterday to 3.6 today. Holding additional Lasix doses and monitoring volume status. Suprapubic Larsen catheter replaced today. 09/26. No significant events reported overnight, the patient continues to requir e 1.5 to 2 L/min nasal cannula oxygen supplementation. Upon examination, the patient's volume status is increasing now with bilateral pitting edema up to mid shins. Creatinine also increasing. White blood cell count increased slightly, procalcitonin level downtrending. Patient also has abdominal distention today, tympanic and mildly tender. 1 view abdominal x-ray did not show any acute changes. Started Lasix 60 mg IV twice daily. Discontinued prednisone as this may be contributing to fluid retention. 09/27. No significant events overnight, vitals unchanged, continues on 1 to 2 L/min oxygen supplementation. Leukocytosis improving. Renal function the same as yesterday. Urine protein creatinine mildly elevated at 0.45. Mental status has improved. Creatinine appears to have plateaued. Discussed CODE STATUS with the patient, his and child at bedside. The patient said he wished to be DNR DNI. CODE STATUS changed to DNR/DNI. Continue Lasix 60 mg IV twice daily today. 09/28. No significant events overnight, vital stable. Oxygen supplementation 1 L/min this morning. White blood cell count slightly increased to 16 however afebrile. Mental status has improved. Volume status has improved. Creatinine now downtrending, yesterday 3.7 and today 3.4. Discontinued Lasix and monitoring volume status. Continues on cefazolin. 09/29. 4 L nasal cannula oxygen overnight, afebrile and vitals stable. White blood cell count increased today, procalcitonin continues to trend down. Renal function is about the same as yesterday, BUN increased. Monitoring volume status, the patient is drinking fluids. Chest x-ray ordered today. Continues on cefazolin. 09/30 No overnight event or new complaints. Patient currently on 1.5 L nasal cannula with sats mid 90s. Is not typically on oxygen at home. We will trial off oxygen. Bandemia significant yesterday 27 now resolved and expect leukocytosis to follow suit on tomorrow labs. If no improvement then will repeat blood cul tures and look for alternative source of infection. Patient denies any pains or complaints including abdominal pain and no respiratory distress. Patient currently on cefazolin for pansensitive E. coli 10/01 No overnight event or new complaints. Patient still on oxygen although will last recorded sat was 98% on 2 L. Son does state patient does have history of coughing or swallowing issues with food. Concerning for aspiration and no we will put in ST eval were not available on the weekends. Leukocytosis still quite high but slowly improving, bandemia resolved. BUN and creatinine still quite elevated but gradually improving. Uric acid lowering reflecting IV fluids received over the past couple days. 10/02 and daughter at bedside today. Patient does not have hearing aids in today. Patient was on room air yesterday from noon to earlier this morning and is currently on 1.5 L. Leukocytosis slowly improving. BUN and creatinine slightly down. Slow to recovery. Review of Systems: Extremely difficult giving his severe hearing impairment. PHYSICAL EXAM General: Alert, Awake, No acute Distress Eyes/N/T: EOMI, no scleral icterus, Head/Neck: neck supple, full ROM, CV: RRR, No murmurs, Pulm: clearing lung sounds b/l laterally, no wheezing, no respiratory distress, supp O2 Abd: soft, nontender, +BS x4 : Suprapubic urinary catheter. Ext: no clubbing/cyanosis, b/l LE edema now trace, nontender Neuro: Alert, no focal deficits, moves all extremities, , sensations intact b/l upper/lower Psychiatric: Skin: warm/dry, normal color Constitutional Vitals: Vital Signs Temp Pulse Resp BP Pulse Ox O2 Del Method O2 Flow Rate 97.2 F 75 20 128/64 93 Nasal Cannula 2 10/02/22 04:00 10/02/22 04:00 10/02/22 04:00 10/02/22 04:00 10/02/22 07:20 10/02/22 07:20 10/02/22 07:20 Period Temp Pulse Resp BP Sys/Morales Pulse Ox O2 Del Method O2 Flow Rate Last 24 Hr 97.2 F-98.5 F 69-86 20-26 101-135/55-67 90-98 Nasal Cannula- Room Air 1-2 Intake and Output 10/01/22 10/02/22 10/02/22 19:59 03:59 11:59 Intake Total 1120 Output Total 570 1300 Balance -570 -180 Weight 95.736 kg Intake & Output: Intake & Output 10/01/22 10/02/22 10/02/22 19:59 03:59 11:59 Intake Total 1120 Output Total 570 1300 Balance -570 -180 Weight 95.736 kg Intake: Oral 1120 Output: Urine Catheter Amount 570 1300 Other: Meal Dinner Percent of Meal Consumed 100% Urine Appearance Clear Clear Urine Color Dark Yellow Dark Yellow OBJ DATA Labs 10/02/22 05:18 10/02/22 05:18 Labs: Abnormal Lab Results 10/02/22 10/02/22 10/01/22 05:18 05:18 10:32 WBC 16.9 H RBC 3.73 L Hgb 11.2 L Hct 33.6 L Immature Gran % (Auto) 8.5 H Neut % (Auto) 78.7 H Lymph % (Auto) 5.6 L Lymph # (Auto) 0.94 L [place] # (Auto) 1.10 H Band Neutrophils % Lymphocytes % Immature Gran # 1.43 H Absolute Neutrophils 13.26 H Reactive Lymphocytes RBC Morphology Polychromasia Hypochromasia Sodium 131 L Chloride 95 L BUN 85 H Creatinine 2.6 H Glucose 120 H Uric Acid 9.5 H Phosphorus Magnesium 2.8 H Lactate Dehydrogenase 354 H NT-Pro-B Natriuret Pep Albumin 2.5 L Globulin Albumin/Globulin Ratio 0.7 L Triglycerides 153 H Procalcitonin Urine Appearance Cloudy A Urine Protein 30 A Urine Occult Blood >=1.0 A Ur Leukocyte Esterase 500 A Urine RBC 22 H Urine WBC > 182 H Urine Bacteria Few A 10/01/22 10/01/22 10/01/22 06:00 06:00 06:00 WBC 19.4 H RBC 3.81 L Hgb 11.5 L Hct 36.4 L Immature Gran % (Auto) Neut % (Auto) Lymph % (Auto) Lymph # (Auto) [place] # (Auto) Band Neutrophils % Lymphocytes % 8 L Immature Gran # Absolute Neutrophils Reactive Lymphocytes RBC Morphology Abnormal A Polychromasia Few A Hypochromasia Few A Sodium Chloride BUN 91 H Creatinine 2.8 H Glucose 114 H Uric Acid 10.1 H Phosphorus 4.6 H Magnesium 3.0 H Lactate Dehydrogenase 324 H NT-Pro-B Natriuret Pep 815.8 H Albumin 2.3 L Globulin 3.8 H Albumin/Globulin Ratio 0.6 L Triglycerides 153 H Procalcitonin Urine Appearance Urine Protein Urine Occult Blood Ur Leukocyte Esterase Urine RBC Urine WBC Urine Bacteria 07/15/23 07/15/23 07/14/23 05:26 05:26 05:27 WBC 22.0 H RBC 3.98 L Hgb 11.8 L Hct 36.1 L Immature Gran % (Auto) Neut % (Auto) Lymph % (Auto) Lymph # (Auto) [place] # (Auto) Band Neutrophils % Lymphocytes % 8 L Immature Gran # Absolute Neutrophils Reactive Lymphocytes RBC Morphology Abnormal A Polychromasia Few A Hypochromasia Sodium Chloride 95 L BUN 99 H Creatinine 3.0 H Glucose 111 H Uric Acid 11.1 H 12.7 H Phosphorus Magnesium 2.9 H Lactate Dehydrogenase NT-Pro-B Natriuret Pep Albumin 2.7 L Globulin Albumin/Globulin Ratio 0.8 L Triglycerides Procalcitonin Urine Appearance Urine Protein Urine Occult Blood Ur Leukocyte Esterase Urine RBC Urine WBC Urine Bacteria 09/29/22 09/29/22 09/29/22 05:27 05:27 05:27 WBC RBC Hgb Hct Immature Gran % (Auto) Neut % (Auto) Lymph % (Auto) Lymph # (Auto) [place] # (Auto) Band Neutrophils % 27 H Lymphocytes % 3 L Immature Gran # Absolute Neutrophils Reactive Lymphocytes 5 H RBC Morphology Polychromasia Hypochromasia Sodium Chloride BUN 107 H* Creatinine 3.5 H Glucose 136 H Uric Acid Phosphorus Magnesium Lactate Dehydrogenase NT-Pro-B Natriuret Pep Albumin 2.8 L Globulin Albumin/Globulin Ratio 0.8 L Triglycerides Procalcitonin 0.84 H Urine Appearance Urine Protein Urine Occult Blood Ur Leukocyte Esterase Urine RBC Urine WBC Urine Bacteria Meds: Medications Albuterol Sulfate (Albuterol Sulfate 2.5 Mg/3 Ml Nebulizer) 2.5 mg NEB Q2HP PRN PRN Reason: Shortness Of Breath Albuterol/Ipratropium (Ipratropium/Albuterol 3 Ml Ampul.Neb) 3 ml NEB Q6HRT PRN PRN Reason: Dyspnea or wheezing Last Admin: 10/02/22 07:15 Dose: 3 ml Aspirin (Aspirin 81 Mg Tab.Chew) 81 mg PO DAILY [facility] Last Admin: 10/01/22 10:06 Dose: 81 mg Budesonide (Budesonide 0.5 Mg/2 Ml Ampul.Neb) 0.5 mg NEB Q12 [facility] Last Admin: 10/02/22 07:15 Dose: 0.5 mg Calcium/Vitamin D (Calcium W/Vit D3 500 Mg Tablet) 500 mg PO BID [facility] Last Admin: 10/01/22 22:30 Dose: 500 mg Cefazolin Sodium (Cefazolin 1 Gm Vial) 1 gm IV Q12H [facility]; Protocol Last Admin: 10/01/22 22:29 Dose: 1 gm Docusate Sodium (Docusate Sodium 100 Mg Capsule) 100 mg PO BID [facility] Last Admin: 10/01/22 22:30 Dose: 100 mg Heparin Sodium (Porcine) (Heparin 5,000 Unit/Ml Vial) 5,000 unit SQ Q12 [facility] Last Admin: 10/01/22 22:29 Dose: 5,000 unit Acetaminophen (Ofirmev) 1,000 mg in 100 mls @ 200 mls/hr IV TIDP PRN; Protocol PRN Reason: pain Last Infusion: 09/26/22 22:00 Dose: Infused Lactulose (Lactulose 20 Gm/30 Ml Oral.Taya) 10 gm PO DAILYP PRN PRN Reason: Constipation Last Admin: 09/30/22 08:24 Dose: 10 gm Lidocaine (Lidocaine 5 Gm Cream.Top) 5 gm TOPICAL TIDP PRN PRN Reason: Pain Last Admin: 10/01/22 22:30 Dose: 5 gm Lidocaine (Lidocaine Patch) 1 patch TOPICAL DAILY@1000 [facility] Last Admin: 10/01/22 10:07 Dose: 1 patch Metoprolol Tartrate (Metoprolol Tartrate 50 Mg Tablet) 50 mg PO BID [facility] Last Admin: 10/01/22 22:30 Dose: 50 mg Metoprolol Tartrate (Metoprolol Tartrate 5 Mg/5 Ml Vial) 5 mg IV Q4HP PRN PRN Reason: Tachyarrhythmias Last Admin: 09/24/22 17:45 Dose: 2 mg Omeprazole (Omeprazole 20 Mg Capsule) 20 mg PO ACB [facility] Last Admin: 10/01/22 08:01 Dose: 20 mg Ondansetron HCl (Ondansetron 4 Mg/2 Ml Vial) 4 mg IV Q4HP PRN; Protocol PRN Reason: Nausea And Vomiting Last Admin: 09/28/22 07:34 Dose: 4 mg Oxycodone HCl (Oxycodone Ir 5 Mg Tablet) 5 mg PO Q4HP PRN; Protocol PRN Reason: Per Pain Protocol Last Admin: 09/28/22 20:35 Dose: 5 mg Tiotropium [place] [ Spiriva Respimat] 2. 5 Mcg/Act Inhaler 2 dose INH DAILY [facility] Last Admin: 10/01/22 10:06 Dose: Not Given Senna (Sennosides 1 Tablet) 2 tab PO HSP PRN PRN Reason: Constipation Last Admin: 09/28/22 20:30 Dose: 2 tab Simvastatin (Simvastatin 10 Mg Tablet) 10 mg PO HS [facility] Last Admin: 10/01/22 22:30 Dose: 10 mg Sodium Chloride (0.9 % Sodium Chloride 10 Ml Syringe) 10 ml IV Q8 [facility] Last Admin: 10/02/22 05:57 Dose: 10 ml A/P Narrative A/P Narrative: A: #Catheter associated complicated UTI/Pyelonephritis (E. coli): #E. coli bacteremia: 2/2 above #Sepsis: 2/2 above -leukocytosis w/bandemia slowly improving, afebrile #Acute hypoxic respiratory failure: improving -CT with emphysema, calcified pleural plaques, b/l infiltrates LLL>R. f/u cxr 09/29 improved -on 0-1L NC #Possible aspiration pneumonitis/pneumonia/atelectasis: #YEIMY on CKD III, with ATN: gradually improving #volume overload then probable over-diuresis: improved #Atrial flutter with RVR: resolved #Metabolic encephalopathy: 2/2 sepsis, improved #COPD exacerbation: improved #h/o Bladder stones #h/o Sigmoid colon stricture #Generalized weakness/Deconditioning #Hypertension/Dyslipidemia: #GERD: #Metastatic prostate cancer: on Casodex #Suprapubic catheter #Obstructive sleep apnea, does not tolerate CPAP: Plan: -Continue cefazolin, anticipate 14-days of antibiotic treatment for e.coli bacteremia -Suprapubic urinary catheter replaced this hospitalization -Oxygen supplementation, wean as able. -Home Spiriva, as needed DuoNebs and albuterol nebs. -Incentive spirometry -Monitor renal function, electrolytes. -Follow-up CBC -Continue Lopressor 50 mg twice daily, as needed IV Lopressor for atrial fibrillation or atrial flutter with RVR. -Continue home Spiriva aspirin, simvastatin, omeprazole. -PT and OT. 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
[2022-10-02] MEDS: ceFAZolin 1 GM VIAL IV SCH ×2 (11:48→20:56)
[2022-10-02] MEDS: HEPARIN 5,000 UNIT/ML VIAL SQ SCH ×2 (11:56→20:53)
[2022-10-02] MEDS: OMEPRAZOLE 20 MG CAPSULE PO SCH (12:51)
[2022-10-02] MEDS: CALCIUM W/VIT D3 500 MG TABLET PO SCH ×2 (12:52→20:52)
[2022-10-02] MEDS: METOPROLOL TARTRATE 50 MG TABLET PO SCH ×2 (12:52→20:52)
[2022-10-02] MEDS: ASPIRIN 81 MG TAB.CHEW PO SCH (12:52)
[2022-10-02] MEDS: Tiotropium Bromide [Spiriva Respimat] 2.5 mcg/act Inhaler INH SCH (12:52)
[2022-10-02] MEDS: DOCUSATE SODIUM 100 MG CAPSULE PO SCH ×2 (12:52→20:52)
[2022-10-02] MEDS: LIDOCAINE PATCH TOPICAL SCH (17:46)
[2022-10-02] MEDS: SIMVASTATIN 10 MG TABLET PO SCH (20:52)
[2022-10-03 06:32] LABS: Basophils # (Auto) 0.04 K/mcL (0.00-0.30); Basophils % (Auto) 0.3 % (0.0-2.0); Eosinophils # (Auto) 0.06 K/mcL (0.00-0.70); Eosinophils % (Auto) 0.4 % (0.0-7.0); Hematocrit 34.6 % (40.1-51.0); Hemoglobin 11.2 g/dL (13.7-17.5); Lymphocytes # (Auto) 0.91 K/mcL (1.50-4.80); Mean Corpuscular HGB Conc 32.4 g/dL (31.0-36.0); Mean Platelet Volume 11.4 fL (8.8-12.5); Monocytes # (Auto) 1.15 K/mcL (0.10-0.90); Monocytes % (Auto) 7.6 % (1.0-12.0); Neutrophils % (Auto) 79.8 % (38.0-78.0); Platelet Count 249 K/mcL (140-440); RBC 3.72 M/mcL (4.63-6.08); Red Cell Distribution Width 13.8 % (11.5-14.5); WBC 15.1 K/mcL (4.5-11.0)
[2022-10-03 07:04] LABS: ALT/SGPT 5 U/L (<40); AST/SGOT 19 U/L (<40); Albumin 2.5 gm/dL (3.2-5.2); Albumin/Globulin Ratio 0.7 (1.0-2.3); Alkaline Phosphatase 102 U/L (39-117); Bilirubin,Direct < 0.2 mg/dL (0-0.3); Bilirubin,Total 0.3 mg/dL (0.1-1.0); Blood Urea Nitrogen 77 mg/dL (8-23); Calcium 8.7 mg/dL (8.6-10.4); Carbon Dioxide 23 mmol/L (22-30); Chloride 97 mmol/L (96-108); Globulin 3.7 gm/dL (2.2-3.7); Glomerular Filtration Rate 23; Glucose 115 mg/dL (70-105); Lactate Dehydrogenase 234 U/L (135-225); Phosphorous 4.3 mg/dL (2.5-4.5); Triglycerides 122 mg/dL (<150); Uric Acid 9.2 mg/dL (2.5-8.0)
--- NOTE | 2022-10-03 08:07 | Internal Med Progress Note ---
SUBJECTIVE Subjective Patient information: Note initiated : 10/03/22 at 8:03 am Service Date, if different from initiated Date: [] Patient: Lalit Moyer a 87 y/o M admitted on 09/23/22. Chief Complaint: [] Interval history: Mr. 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 He went to his bed in normal state of health but woke up around 1 AM with an episode of vomiting. He had another couple of episodes of vomiting through the day and was feeling very weak and tired. Throughout the day family noted that p atient was somewhat lethargic, confused and stumbling over words. Patient felt some pressure and thought his suprapubic catheter was not draining however noted blood in the catheter. His p.o. intake was low he was not eating and was nauseous. Patient follows up with Dr. Obregon and his last visit was about a week ago when he had his suprapubic catheter changed. Patient denies fever, chills, abdominal pain, diarrhea, constipation, difficulty breathing, cardiac chest pain, heart palpitations, hematemesis, melena, hematochezia. On presentation patient was tachypneic with respiratory rate 31, tachycardia heart rate 113, he was hypoxic of 84% and required 2 L nasal cannula oxygen. Labs were remarkable for WBCs 27,000, hemoglobin 13.4. Lactic acid 4.1. Procalcitonin elevated at 14. Normal electrolytes. Creatinine 2.3 consistent with YEIMY. UA positive for leukocyte Estrace, RBC, WBC, bacteria. CT abdomen and pelvis showed some nonspecific inflammatory changes around left kidney and Gerota fascia extending into the left side of the pelvis. This may be secondary to passage of stone or known inflammatory process. Multiple bladder calculi were noted. Chest x-ray concerning for pneumonia formal read is pending. EKG showed sinus tachycardia ventricular rate 1122 bpm, some PVCs, no acute ST-T wave changes. 7/8. Overall feels well bit better. Reports always have some labored breathing from his COPD. Still hypotensive with blood pressure of 87/60, on IV fluids. Fluctuating between 4 and 8 L nasal cannula oxygen. While I was in the room I weaned it down to 3 L and he was still around 92%. Leukocytosis improved to 23,000 from 27, hemoglobin down to 11.7 from 13.4, but some element of hemodilution. Lactic acidosis cleared and down to 1.8 from 3.0 previously. Cr eatinine down to 2.1 from 2.3 yesterday. Chest x-ray from 09/23 reviewed. 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 CTA chest was obtained this morning and it showed bilateral pulmonary infiltrates, left base more than right. This could be pneumonia. Patient has moderate emphysema. 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 09/24. Patient appears tired, somewhat tachypneic, smiling and reports no issues. Patient became hypotensive last evening after receiving metoprolol for his tachycardia. He was given 250 cc bolus and blood pressure improved. Creatinine increased to 3.0 from 2.1 yesterday could be secondary to episode of hypotension. He has history of CKD stage III. Reviewed I's and O's. Patient is net positive over 4 L since admission. Echo from February 2020 reviewed. Preserved EF 55-60%, no diastolic dysfunction, no significant valvular dysfunction. Patient BNP is elevated at 8978. Chest x-ray obtained is showing pulmonary edema. Procalcitonin is down to 6 from 14 couple days ago. Blood culture from 09/22 growing gram-negative bacilli. Urine culture pending. 09/25. Yesterday evening, the patient went into atrial flutter with rapid ventricular response. Started oral Lopressor and IV Lopressor as needed. The patient converted back to normal sinus rhythm. After that, vitals remained essentially unchanged overnight, the patient continues to require 3 L/min oxygen supplementation. Urine culture grew pansensitive E. coli, blood culture grew pansensitive E. coli. Antibiotics consolidated to cefazolin. Echo showed LVEF 55 to 60%, unable to accurately assess left ventricular diastolic function due to abnormal rhythm, normal right ventricular size and function. Estimated pulmonary artery pressure of 52 mmHg, trace MR and AI. White blood cell count trending down however still elevated at 15.9. Creatinine increased from 3.3 yesterday to 3.6 today. Holding additional Lasix doses and monitoring volume status. Suprapubic Larsen catheter replaced today. 09/26. No significant events reported overnight, the patient continues to requir e 1.5 to 2 L/min nasal cannula oxygen supplementation. Upon examination, the patient's volume status is increasing now with bilateral pitting edema up to mid shins. Creatinine also increasing. White blood cell count increased slightly, procalcitonin level downtrending. Patient also has abdominal distention today, tympanic and mildly tender. 1 view abdominal x-ray did not show any acute changes. Started Lasix 60 mg IV twice daily. Discontinued prednisone as this may be contributing to fluid retention. 09/27. No significant events overnight, vitals unchanged, continues on 1 to 2 L/min oxygen supplementation. Leukocytosis improving. Renal function the same as yesterday. Urine protein creatinine mildly elevated at 0.45. Mental status has improved. Creatinine appears to have plateaued. Discussed CODE STATUS with the patient, his and child at bedside. The patient said he wished to be DNR DNI. CODE STATUS changed to DNR/DNI. Continue Lasix 60 mg IV twice daily today. 09/28. No significant events overnight, vital stable. Oxygen supplementation 1 L/min this morning. White blood cell count slightly increased to 16 however afebrile. Mental status has improved. Volume status has improved. Creatinine now downtrending, yesterday 3.7 and today 3.4. Discontinued Lasix and monitoring volume status. Continues on cefazolin. 09/29. 4 L nasal cannula oxygen overnight, afebrile and vitals stable. White blood cell count increased today, procalcitonin continues to trend down. Renal function is about the same as yesterday, BUN increased. Monitoring volume status, the patient is drinking fluids. Chest x-ray ordered today. Continues on cefazolin. 09/30 No overnight event or new complaints. Patient currently on 1.5 L nasal cannula with sats mid 90s. Is not typically on oxygen at home. We will trial off oxygen. Bandemia significant yesterday 27 now resolved and expect leukocytosis to follow suit on tomorrow labs. If no improvement then will repeat blood cul tures and look for alternative source of infection. Patient denies any pains or complaints including abdominal pain and no respiratory distress. Patient currently on cefazolin for pansensitive E. coli 10/01 No overnight event or new complaints. Patient still on oxygen although will last recorded sat was 98% on 2 L. Son does state patient does have history of coughing or swallowing issues with food. Concerning for aspiration and no we will put in ST eval were not available on the weekends. Leukocytosis still quite high but slowly improving, bandemia resolved. BUN and creatinine still quite elevated but gradually improving. Uric acid lowering reflecting IV fluids received over the past couple days. 10/02 and daughter at bedside today. Patient does not have hearing aids in today. Patient was on room air yesterday from noon to earlier this morning and is currently on 1.5 L. Leukocytosis slowly improving. BUN and creatinine slightly down. Slow to recovery. Review of Systems: Extremely difficult giving his severe hearing impairment. PHYSICAL EXAM General: Alert, Awake, No acute Distress Eyes/N/T: EOMI, no scleral icterus, Head/Neck: neck supple, full ROM, CV: RRR, No murmurs, Pulm: clearing lung sounds b/l laterally, no wheezing, no respiratory distress, supp O2 Abd: soft, nontender, +BS x4 : Suprapubic urinary catheter. Ext: no clubbing/cyanosis, b/l LE edema now trace, nontender Neuro: Alert, no focal deficits, moves all extremities, , sensations intact b/l upper/lower Psychiatric: Skin: warm/dry, normal color Constitutional Vitals: Vital Signs Temp Pulse Resp BP Pulse Ox O2 Del Method O2 Flow Rate 97.9 F 82 24 H 118/65 92 Nasal Cannula 2 10/03/22 07:30 10/03/22 07:30 10/03/22 07:30 10/03/22 07:30 10/03/22 07:30 10/03/22 07:30 10/03/22 07:30 Period Temp Pulse Resp BP Sys/Morales Pulse Ox O2 Del Method O2 Flow Rate Last 24 Hr 97.2 F-98.7 F 73-91 18-28 116-133/58-68 92-99 Nasal Cannula- Nasal Cannula, Bubble Humidifier 1-2 Intake and Output 10/02/22 10/03/22 10/03/22 19:59 03:59 11:59 Intake Total 950 100 Output Total 620 1025 Balance 330 -925 Weight 97.205 kg Intake & Output: Intake & Output 10/02/22 10/03/22 10/03/22 19:59 03:59 11:59 Intake Total 950 100 Output Total 620 1025 Balance 330 -925 Weight 97.205 kg Intake: Oral 950 100 Output: Urine Catheter Amount 620 1025 Other: Meal Dinner Percent of Meal Consumed 75% Feeding Ability Independent Urine Appearance Clear Clear Urine Color Dark Yellow Yellow Stool Size Small Stool Color Brown Stool Consistency Loose OBJ DATA Labs 10/03/22 05:46 10/03/22 05:46 Labs: Abnormal Lab Results 10/03/22 10/03/22 10/02/22 05:46 05:46 05:18 WBC 15.1 H RBC 3.72 L Hgb 11.2 L Hct 34.6 L Immature Gran % (Auto) 5.9 H Neut % (Auto) 79.8 H Lymph % (Auto) 6.0 L Lymph # (Auto) 0.91 L Marin # (Auto) 1.15 H Lymphocytes % Immature Gran # 0.90 H Absolute Neutrophils 12.08 H RBC Morphology Polychromasia Hypochromasia Sodium 132 L 131 L Chloride 95 L BUN 77 H 85 H Creatinine 2.4 H 2.6 H Glucose 115 H 120 H Uric Acid 9.2 H 9.5 H Phosphorus Magnesium 2.8 H 2.8 H Lactate Dehydrogenase 234 H 354 H NT-Pro-B Natriuret Pep Albumin 2.5 L 2.5 L Globulin Albumin/Globulin Ratio 0.7 L 0.7 L Triglycerides 153 H Urine Appearance Urine Protein Urine Occult Blood Ur Leukocyte Esterase Urine RBC Urine WBC Urine Bacteria 10/02/22 10/01/22 10/01/22 05:18 10:32 06:00 WBC 16.9 H RBC 3.73 L Hgb 11.2 L Hct 33.6 L Immature Gran % (Auto) 8.5 H Neut % (Auto) 78.7 H Lymph % (Auto) 5.6 L Lymph # (Auto) 0.94 L Marin # (Auto) 1.10 H Lymphocytes % Immature Gran # 1.43 H Absolute Neutrophils 13.26 H RBC Morphology Polychromasia Hypochromasia Sodium Chloride BUN Creatinine Glucose Uric Acid Phosphorus Magnesium Lactate Dehydrogenase NT-Pro-B Natriuret Pep 815.8 H Albumin Globulin Albumin/Globulin Ratio Triglycerides Urine Appearance Cloudy A Urine Protein 30 A Urine Occult Blood >=1.0 A Ur Leukocyte Esterase 500 A Urine RBC 22 H Urine WBC > 182 H Urine Bacteria Few A 10/01/22 10/01/22 09/30/22 06:00 06:00 05:26 WBC 19.4 H RBC 3.81 L Hgb 11.5 L Hct 36.4 L Immature Gran % (Auto) Neut % (Auto) Lymph % (Auto) Lymph # (Auto) Marin # (Auto) Lymphocytes % 8 L 8 L Immature Gran # Absolute Neutrophils RBC Morphology Abnormal A Abnormal A Polychromasia Few A Few A Hypochromasia Few A Sodium Chloride BUN 91 H Creatinine 2.8 H Glucose 114 H Uric Acid 10.1 H Phosphorus 4.6 H Magnesium 3.0 H Lactate Dehydrogenase 324 H NT-Pro-B Natriuret Pep Albumin 2.3 L Globulin 3.8 H Albumin/Globulin Ratio 0.6 L Triglycerides 153 H Urine Appearance Urine Protein Urine Occult Blood Ur Leukocyte Esterase Urine RBC Urine WBC Urine Bacteria Meds: Medications Albuterol Sulfate (Albuterol Sulfate 2.5 Mg/3 Ml Nebulizer) 2.5 mg NEB Q2HP PRN PRN Reason: Shortness Of Breath Albuterol/Ipratropium (Ipratropium/Albuterol 3 Ml Ampul.Neb) 3 ml NEB Q6HRT PRN PRN Reason: Dyspnea or wheezing Last Admin: 10/02/22 19:33 Dose: 3 ml Aspirin (Aspirin 81 Mg Tab.Chew) 81 mg PO DAILY [facility] Last Admin: 10/02/22 12:52 Dose: 81 mg Budesonide (Budesonide 0.5 Mg/2 Ml Ampul.Neb) 0.5 mg NEB Q12 [facility] Last Admin: 10/02/22 19:33 Dose: 0.5 mg Calcium/Vitamin D (Calcium W/Vit D3 500 Mg Tablet) 500 mg PO BID [facility] Last Admin: 10/02/22 20:52 Dose: 500 mg Cefazolin Sodium (Cefazolin 1 Gm Vial) 1 gm IV Q12H [facility]; Protocol Last Admin: 10/02/22 20:56 Dose: 1 gm Docusate Sodium (Docusate Sodium 100 Mg Capsule) 100 mg PO BID [facility] Last Admin: 10/02/22 20:52 Dose: Not Given Heparin Sodium (Porcine) (Heparin 5,000 Unit/Ml Vial) 5,000 unit SQ Q12 [facility] Last Admin: 10/02/22 20:53 Dose: 5,000 unit Acetaminophen (Ofirmev) 1,000 mg in 100 mls @ 200 mls/hr IV TIDP PRN; Protocol PRN Reason: pain Last Infusion: 09/26/22 22:00 Dose: Infused Lactulose (Lactulose 20 Gm/30 Ml Oral.Taya) 10 gm PO DAILYP PRN PRN Reason: Constipation Last Admin: 09/30/22 08:24 Dose: 10 gm Lidocaine (Lidocaine 5 Gm Cream.Top) 5 gm TOPICAL TIDP PRN PRN Reason: Pain Last Admin: 10/01/22 22:30 Dose: 5 gm Lidocaine (Lidocaine Patch) 1 patch TOPICAL DAILY@1000 JYOTI Last Admin: 10/02/22 17:46 Dose: 1 patch Metoprolol Tartrate (Metoprolol Tartrate 50 Mg Tablet) 50 mg PO BID [facility] Last Admin: 10/02/22 20:52 Dose: 50 mg Metoprolol Tartrate (Metoprolol Tartrate 5 Mg/5 Ml Vial) 5 mg IV Q4HP PRN PRN Reason: Tachyarrhythmias Last Admin: 09/24/22 17:45 Dose: 2 mg Omeprazole (Omeprazole 20 Mg Capsule) 20 mg PO ACB [facility] Last Admin: 10/02/22 12:51 Dose: 20 mg Ondansetron HCl (Ondansetron 4 Mg/2 Ml Vial) 4 mg IV Q4HP PRN; Protocol PRN Reason: Nausea And Vomiting Last Admin: 09/28/22 07:34 Dose: 4 mg Oxycodone HCl (Oxycodone Ir 5 Mg Tablet) 5 mg PO Q4HP PRN; Protocol PRN Reason: Per Pain Protocol Last Admin: 09/28/22 20:35 Dose: 5 mg Tiotropium [place] [ Spiriva Respimat] 2. 5 Mcg/Act Inhaler 2 dose INH DAILY [facility] Last Admin: 10/02/22 12:52 Dose: Not Given Senna (Sennosides 1 Tablet) 2 tab PO HSP PRN PRN Reason: Constipation Last Admin: 09/28/22 20:30 Dose: 2 tab Simvastatin (Simvastatin 10 Mg Tablet) 10 mg PO HS [facility] Last Admin: 10/02/22 20:52 Dose: 10 mg Sodium Chloride (0.9 % Sodium Chloride 10 Ml Syringe) 10 ml IV Q8 [facility] Last Admin: 07/17/23 21:04 Dose: 10 ml A/P Narrative A/P Narrative: A: #Catheter associated complicated UTI/Pyelonephritis (E. coli): #E. coli bacteremia: 2/2 above #Sepsis: 2/2 above -leukocytosis w/bandemia(resolved) slowly improving, afebrile #Acute hypoxic respiratory failure: improving -CT with emphysema, calcified pleural plaques, b/l infiltrates LLL>R. f/u cxr 09/29 improved -on 0-1L NC #Possible aspiration pneumonitis/pneumonia/atelectasis: #YEIMY on CKD III, with ATN: gradually improving #volume overload then probable over-diuresis: improved #Atrial flutter with RVR: resolved #Metabolic encephalopathy: 2/2 sepsis, improved #COPD exacerbation: improved #h/o Bladder stones #h/o Sigmoid colon stricture #Generalized weakness/Deconditioning #Hypertension/Dyslipidemia: #GERD: #Metastatic prostate cancer: on Casodex #Suprapubic catheter #Obstructive sleep apnea, does not tolerate CPAP: Plan: -Continue cefazolin, anticipate 14-days of antibiotic treatment for e.coli bacteremia -Suprapubic urinary catheter replaced this hospitalization -Oxygen supplementation, wean as able. -Home Spiriva, as needed DuoNebs and albuterol nebs. -Incentive spirometry -Monitor renal function, electrolytes. -Follow-up CBC/renal fxn -Continue Lopressor 50 mg twice daily, as needed IV Lopressor for atrial fibrillation or atrial flutter with RVR. -Continue home Spiriva aspirin, simvastatin, omeprazole. -PT and OT. ST eval -engine monitor -DVT prophylaxis: Heparin SQ CODE STATUS: DNR/DNI Time Spent With Patient Time: Total time spent is greater than 50% in coordination of care (as documented) at patient's floor/unit and/or counseling patient: QUALITY VTE Deep Vein Thrombosis/Pulmonary Embolism Present on Admission: No
[2022-10-03] MEDS: OMEPRAZOLE 20 MG CAPSULE PO SCH (08:09)
[2022-10-03] MEDS: IPRATROPIUM/ALBUTEROL 3 ML AMPUL.NEB NEB PRN (08:10)
[2022-10-03] MEDS: BUDESONIDE 0.5 MG/2 ML AMPUL.NEB NEB SCH (08:10)
[2022-10-03] MEDS: 0.9 % SODIUM CHLORIDE 10 ML SYRINGE IV SCH (08:10)
[2022-10-03] MEDS: HEPARIN 5,000 UNIT/ML VIAL SQ SCH (09:51)
[2022-10-03] MEDS: LIDOCAINE PATCH TOPICAL SCH (09:52)
[2022-10-03] MEDS: Tiotropium Bromide [Spiriva Respimat] 2.5 mcg/act Inhaler INH SCH (09:53)
[2022-10-03] MEDS: CALCIUM W/VIT D3 500 MG TABLET PO SCH (09:54)
[2022-10-03] MEDS: LIDOCAINE 5 GM CREAM.TOP TOPICAL PRN (09:54)
[2022-10-03] MEDS: ASPIRIN 81 MG TAB.CHEW PO SCH (09:54)
[2022-10-03] MEDS: METOPROLOL TARTRATE 50 MG TABLET PO SCH (09:55)
[2022-10-03] MEDS: DOCUSATE SODIUM 100 MG CAPSULE PO SCH (09:57)
[2022-10-03] MEDS: ceFAZolin 1 GM VIAL IV SCH (10:08)
== END 2022-10-03 12:25 | DRG 871 ==
LOC: ED 19:18 → ICU 09-23 00:49 → MEDSUR 09-28 15:00
PROVIDERS: ADMIT Internal Medicine; ATTEND Internal Medicine